=== PATIENT | female | born 1970 | race Caucasian/White ===

== ENCOUNTER 2019-08-31 09:40 | Emergency (ER) | payer MEDICAID ==
[2005-11-23 01:26] VITALS: BP 133/56
[~2019-08-31] VITALS: Ht 167.6 cm; Wt 131.8 kg
[2019-08-31] MEDS ORDERED: COREG12.5 MG PO (10:31)
[2019-08-31] MEDS ORDERED: APRESOLINE50 MG PO (10:31)
[2019-08-31] MEDS ORDERED: LASIX 80MG TABL80 MG PO (10:31)
[2019-08-31] MEDS ORDERED: CATAPRES 0.1MG0.1 MG PO (10:32)
[2019-08-31] MEDS ORDERED: NORVASC 10MG10 MG PO (10:32)
[2019-08-31] MEDS ORDERED: LEVOXYL0.1 MG PO (10:32)
[2019-08-31] MEDS ORDERED: LEXAPRO20 MG PO (10:33)
[2019-08-31] MEDS ORDERED: XELPROS2.5 ML OU (10:33)
[2019-08-31] MEDS ORDERED: HUMALOG PEN100 U/ML SQ (10:34)
[2019-08-31] MEDS ORDERED: LANTUS SOLOS100 U/ML SQ (10:35)
[2019-08-31 12:20] VITALS: BP 203/82; PULSE 74; TEMP 98
== END 2019-08-31 12:20 | disposition home or self-care (01) ==
LOC: COL.ER 09:40
DX: Z76.0 Encounter for issue of repeat prescription (principal); E11.9 Type 2 diabetes mellitus without complications; I10 Essential (primary) hypertension; F17.210 Nicotine dependence, cigarettes, uncomplicated; Z79.4 Long term (current) use of insulin; Z98.890 Other specified postprocedural states

== ENCOUNTER 2019-09-22 14:05 | Inpatient (IN) | payer MEDICAID ==
[~2019-09-22] VITALS: Ht 152.4 cm; Wt 142.7 kg
[~2019-09-22 14:05] MED LIST: APRESOLINE50 MG PO; CATAPRES 0.1MG0.1 MG PO; COREG12.5 MG PO; HUMALOG PEN100 U/ML SQ; LANTUS SOLOS100 U/ML SQ; LASIX 80MG TABL80 MG PO; LEVOXYL0.1 MG PO; LEXAPRO20 MG PO; NORVASC 10MG10 MG PO; XELPROS2.5 ML OU
[2019-09-22 15:50] LABS: BASO # 0.1 (0.0-0.2); BASO % 0.3 % (0.0-2.0); EOS # 0.5 (0.0-0.7); EOS % 3.3 % (0-4.0); GRAN # 11.9 (1.4-6.5); GRAN % 74.8 % (42.2-75.2); HEMOGLOBIN 10.4 g/dl (12.5-16.0); LYMPH # 2.2 (1.2-3.4); LYMPH % 13.7 % (20.0-51.0); MEAN CELL VOLUME 91 fl (80.0-100.0); MEAN CORPUSCULAR HEMOGLOBIN 30 pg (27.0-31.0); MEAN CORPUSCULAR HGB CONC 33 g/dl (33.0-37.0); MEAN PLATELET VOLUME 11.7 fl (7.4-10.4); MONO # 1.2 (0.1-0.6); MONO % 7.3 % (1.7-9.3); PLATELET COUNT 208 K/mm3 (130-400); RED BLOOD COUNT 3.51 M/mm3 (4.10-5.30); REDCELL DISTRIBUTION WIDTH-CV 14.9 % (11.5-14.5)
[2019-09-22 15:52] LABS: HEMATOCRIT 31.8 % (37.0-47.0)
[2019-09-22 15:56] LABS: ALBUMIN 3.5 gm/dL (3.5-5.0); BILIRUBIN,TOTAL 0.3 mg/dL (0.0-1.0); C-REACTIVE PROTEIN 1.4 mg/dL (0.0-0.9); CALCIUM 8.8 mg/dL (8.4-10.2); POTASSIUM 4.7 mmol/L (3.4-5.0); TOTAL PROTEIN 7.2 gm/dL (6.4-8.2)
[2019-09-22 16:05] LABS: CREATININE, serum 4.05 (0.52-1.25)
[2019-09-22 16:06] LABS: TROPONIN-I 0.032 ng/mL (0.000-0.035)
[2019-09-22 16:22] LABS: BUDDING YEAST Present /hpf; GRANULAR CAST >12 /lpf; MUCOUS Present /lpf; PH 5 (5-8); URINE APPEARANCE Turbid; URINE BACTERIA Moderate /hpf; URINE BILIRUBIN Negative (NEGATIVE); URINE BLOOD Negative (NEGATIVE); URINE COLOR Yellow; URINE GLUCOSE 2+ (NEGATIVE); URINE KETONE Negative (NEGATIVE); URINE LEUKOCYTE ESTERASE Negative (NEGATIVE); URINE NITRATE Negative (NEGATIVE); URINE PROTEIN(semi-quant) 3+ (NEGATIVE); URINE UROBILINOGEN Negative (NEGATIVE)
[2019-09-22] MEDS ORDERED: LASIX 40MG TABL40 MG PO (18:24)
[2019-09-22] MEDS ORDERED: NORVASC 10MG10 MG PO (18:28)
[2019-09-22] MEDS ORDERED: XELPROS2.5 ML OP (18:28)
--- NOTE | 2019-09-22 19:15 | NUR ---
Report received from Adina, pt arrived to medical floor by 1720. Telemetry was notified of implementation, however, pt refused tele. Contacted Dr. Crockett who gave orders to D/C tele for pt refusal. Pt complained of a significant headache. During the aformentioned conversation with Dr. Crockett received a Verbal Order for Tylenol to relieve the headache. Pt assessment compelete, most vital signs were WNL, spo2 was hovering around 91%. Call light within reach, personal belongings within reach, will continue to monitor.
--- NOTE | 2019-09-22 21:00 | NUR ---
Pt still has c/o headache. Contacted Dr. Crockett and received an order for Tramadol, Ambien and Hydralazine. When asking the pt if she felt better, she stated that the pain was beginning to feel better, but that she was feeling like she was having a hard time breathing. Listened to pt lungs, Bilateral upper lobes CTA, R Middle and Bilateral lower lobes expiratory wheezes. Pt is complaining of cough being so bad she can't breath. Will continue to monitor. Bed Low, call light within reach, and pt belongings nearyby.
[2019-09-22 21:14] VITALS: BP 148/59; PULSE 80; TEMP 98.4
[2019-09-23] VITALS (7 sets, daily range): BP systolic 106–169; BP diastolic 47–63; PULSE 66–85; TEMP 97.4–99.7
--- NOTE | 2019-09-23 00:50 | NUR ---
Pt complaint of being unable to breathe. Checked pt's vital signs, pt spo2 is hovering around 87-89%. Applied supplemental o2, 1LPM. Pt spo2 is now sitting at 95-96%. Will continue to monitor. Call light within reach. Pt sitting on the side of the bed for comfort. No further concerns at this time.
[2019-09-23 10:39] LABS: COLLECTION METHOD CATHETER
[2019-09-23 11:31] LABS: TSH w REFLEX 16.6 uIU/mL (0.465-4.680)
[2019-09-24] VITALS (7 sets, daily range): BP systolic 124–158; BP diastolic 55–89; PULSE 66–79; TEMP 97.4–98.4
--- NOTE | 2019-09-24 07:00 | NUR ---
Pt was very distraught throughout the night. Multiple times complained of staff ignoring her. Pt complained of pain, and that the medication being given was ineffective. Bon was contacted multiple times over the weekend for more and/or other pain management options, however, since she is new to his service he is hesitant to give anything else. Pt is not satisfied with that answer, and began to refuse treatments and labs. Around 0100, pt transferred herself to her wheelchair and searched for her cigarettes. She stated that she could be home drinking a soda and smoking instead of sitting in the hospital not being treated. Again, reiterated that she is hospitalized for a reason, and that refusing treatments will only make things worse for her because we won't know how to treat her problem if we have no labs. Pt becomes somewhat compliant while in the room and then when RN or APPELLATE COURT CLERK leaves, pt reverts back to agitation and anger. Pt states "I'm bitchy, that's just how I am." CT is schedueled for this morning to get a picture of her sinuses. Consider a psych consult. Report given to Analy.
--- NOTE | 2019-09-24 07:30 | NUR ---
Bedside shift report received from Derik Arzate. Pt in bed resting, CT trying to get to WC to get to CT. Will ocntinue to monitor.
[2019-09-24 08:41] LABS: BASO % 0.4 % (0.0-2.0); EOS # 0.7 (0.0-0.7); EOS % 7.4 % (0-4.0); GRAN % 53.5 % (42.2-75.2); LYMPH # 2.4 (1.2-3.4); LYMPH % 25.9 % (20.0-51.0); MEAN CELL VOLUME 93 fl (80.0-100.0); MEAN CORPUSCULAR HGB CONC 33 g/dl (33.0-37.0); MEAN PLATELET VOLUME 11.9 fl (7.4-10.4); MONO # 1.1 (0.1-0.6); MONO % 11.6 % (1.7-9.3); PLATELET COUNT 131 K/mm3 (130-400); RED BLOOD COUNT 2.98 M/mm3 (4.10-5.30); REDCELL DISTRIBUTION WIDTH-CV 15.2 % (11.5-14.5)
[2019-09-24 08:42] LABS: HEMATOCRIT 27.8 % (37.0-47.0); HEMOGLOBIN 9.1 g/dl (12.5-16.0); MEAN CORPUSCULAR HEMOGLOBIN 31 pg (27.0-31.0)
[2019-09-24 08:47] LABS: ALBUMIN 3.2 gm/dL (3.5-5.0); CALCIUM 8.2 mg/dL (8.4-10.2)
[2019-09-24 08:59] LABS: CREATININE, serum 6.17 (0.52-1.25)
[2019-09-24 09:00] LABS: PHOSPHOROUS 9.3 mg/dL (2.5-4.5)
--- NOTE | 2019-09-24 10:30 | NUR ---
Assessment charted. Pt in bed resting with 02 mask on for comfort when resting. Groin is excortiated, cream applied and powder applied. Pt c/o pain to head, LUQ of abd from "pulled muscle". Bon and his nurse in room to assist with needs, disucssed possibility of dialysis. PRN pain meds given. Denies needs, will continue to monitor.
--- NOTE | 2019-09-24 16:59 | NUR ---
JOSEPH met with the patient to discuss discharge plan. The patient resides at [facility] for long-term care. The patient states that she plans to return back to [facility] upon discharge. JOSEPH presented and explained the Patient Choice Form to the patient. The patient verbalized understanding, signed, and she declined a copy. JOSEPH attempted to contact and update Amarjit at [facility]. JOSEPH left a voicemail and faxed [facility] updates. The patient's PCP is Dr. Howard at [place]. The patient does not have advanced directives and she was not interested in completing them at this time. The patient states that her next of kin is her father, Froilan Hicks (ph#[phone]). SW to continue to follow.
--- NOTE | 2019-09-24 17:39 | NUR ---
Pt in bed resting, slept off and on this afternoon, PRN pain meds provided per request. Denies needs, bed bath provided, pt continues to be incontinent of urine but knows when she goes, just does not have motivation to get up and use commode or bedpan. Resting in bed, per Senior Civil Engineer cannot go to [facility] as she is on precautions. Will give bedside shift report to nightshift nurse who will resume care.
[2019-09-24 18:10] LABS: HEPATITIS B SURFACE ANTIGEN Negative (Negative)
[2019-09-24 20:23] LABS: FOLATE (FOLIC ACID) 10.5 ng/mL (7.0-31.4)
[2019-09-25 04:46] VITALS: BP 165/63; PULSE 70; TEMP 97.8
--- NOTE | 2019-09-25 06:37 | NUR ---
Pt makes no attempt to get out of bed to use the bathroom. Has an open area to her coccyx approx. the size of a pencil eraser. Explained to her that with her being diabetic and urinating in bed will not be easy for the wound to heal. She used all her 1500mL fluid restriction. Call light within reach. Heating pad to L abdomen.
[2019-09-25 07:50] LABS: BASO % 0.3 % (0.0-2.0); EOS # 0.6 (0.0-0.7); EOS % 5.9 % (0-4.0); GRAN # 5.2 (1.4-6.5); GRAN % 56.4 % (42.2-75.2); LYMPH # 2.3 (1.2-3.4); LYMPH % 25.1 % (20.0-51.0); MEAN CELL VOLUME 94 fl (80.0-100.0); MEAN CORPUSCULAR HGB CONC 32 g/dl (33.0-37.0); MEAN PLATELET VOLUME 12.2 fl (7.4-10.4); MONO % 11.1 % (1.7-9.3); PLATELET COUNT 160 K/mm3 (130-400)
[2019-09-25 07:53] LABS: HEMATOCRIT 26.2 % (37.0-47.0); HEMOGLOBIN 8.5 g/dl (12.5-16.0); MEAN CORPUSCULAR HEMOGLOBIN 30 pg (27.0-31.0)
[2019-09-25 07:59] LABS: ALBUMIN 3.2 gm/dL (3.5-5.0); CALCIUM 7.5 mg/dL (8.4-10.2); POTASSIUM 5.5 mmol/L (3.4-5.0)
--- NOTE | 2019-09-25 08:00 | NUR ---
SEE MORNING ASSESSMENT.
[2019-09-25 08:01] LABS: CREATININE, serum 6.68 (0.52-1.25); PHOSPHOROUS 10.7 mg/dL (2.5-4.5)
[2019-09-25 08:12] VITALS: BP 164/62; PULSE 70; TEMP 98.5
--- NOTE | 2019-09-25 10:55 | NUR ---
EMLA CREAM APPLIED TO LUE AV FISTULA SITE AND COVERED WITH A TEGADERM DRESSING. PATIENT TAKEN TO DIALYSIS VIA BED. WILL WAIT FOR PATIENT ARRIVAL BACK TO ROOM 356.
[2019-09-25 12:04] VITALS: BP 120/56; PULSE 62; TEMP 97.6
--- NOTE | 2019-09-25 12:15 | NUR ---
PATIENT ARRIVED BACK TO ROOM 356 VIA BED.
--- NOTE | 2019-09-25 12:30 | NUR ---
PATIENT CALLED OUT STATING THAT SHE DOESN'T FEEL RIGHT, THAT SHE'S NOT WITH IT AND THAT SHE'S SHAKING ON THE INSIDES. PATIENTS BLOOD SUGAR IS 76. PATIENT GIVEN PARAG CRACKERS, PEANUT BUTTER AND MILK. WILL CONTINUE TO MONITOR.
--- NOTE | 2019-09-25 12:47 | NUR ---
VIVIAN NOTIFIED OF TB SKIN TEST ORDER.
--- NOTE | 2019-09-25 13:08 | NUR ---
JOSEPH contacted and faxed updates to Amarjit at [facility].
[2019-09-25 16:21] VITALS: BP 135/56; PULSE 82; TEMP 97.6
--- NOTE | 2019-09-25 18:20 | NUR ---
DR. HAMILTON CALLED AND NOTIFIED THAT THE PATIENTS IV SITE IS LEAKING. DR. HAMILTON OKAY WITH PATIENT HAVING NO IV SITE. DISCONTINUE IV ROCEPHIN AND START PATIENT ON PO LEVAQUIN 500 MG NOW AND EVERY 48 HOURS TORB TO THIS NURSE.
--- NOTE | 2019-09-25 19:15 | NUR ---
REPORT GIVEN TO DANUTA MELENDEZ.
[2019-09-25 20:46] VITALS: BP 122/76; PULSE 71
[2019-09-25 23:34] VITALS: BP 141/56; PULSE 73
[2019-09-26 07:33] VITALS: BP 133/42; PULSE 72; TEMP 97.9
[2019-09-26 11:45] VITALS: BP 150/63; PULSE 71; TEMP 97.2
--- NOTE | 2019-09-26 14:12 | NUR ---
JOSEPH contacted and faxed updates to Amarjit at [facility]. JOSEPH asked the patient's RN, Fern, for PT/OT to be ordered. JOSEPH to continue to follow.
--- NOTE | 2019-09-26 15:43 | NUR ---
24 gauge IV started to right AC by DANUTA Andrews after 1 unsuccessful attempt by this nurse. Pt awaiting procedure for dialysis catheter placement.
--- NOTE | 2019-09-26 15:59 | NUR ---
Pt to flower shop laborer/designer for dialysis catheter placement via bed.
[2019-09-26 16:00] VITALS: BP 101/84; PULSE 68
[2019-09-26 17:12] LABS: HEMATOCRIT 24.8 % (37.0-47.0); HEMOGLOBIN 8.1 g/dl (12.5-16.0); MEAN CELL VOLUME 95 fl (80.0-100.0); MEAN CORPUSCULAR HEMOGLOBIN 31 pg (27.0-31.0); MEAN CORPUSCULAR HGB CONC 33 g/dl (33.0-37.0); MEAN PLATELET VOLUME 11.9 fl (7.4-10.4); PLATELET COUNT 133 K/mm3 (130-400); RED BLOOD COUNT 2.62 M/mm3 (4.10-5.30); REDCELL DISTRIBUTION WIDTH-CV 14.9 % (11.5-14.5)
[2019-09-26 17:20] LABS: ALBUMIN 2.9 gm/dL (3.5-5.0); CALCIUM 6.9 mg/dL (8.4-10.2)
[2019-09-26 17:21] LABS: CREATININE, serum 6.19 (0.52-1.25)
[2019-09-26 17:31] LABS: PHOSPHOROUS 14.2 mg/dL (2.5-4.5)
[2019-09-26 17:35] LABS: EOSINOPHIL 4 % (0-4); LYMPHOCYTE 21 % (20.0-51.0); NEUTROPHILS 65 % (42.0-75.2); PLATELET ESTIMATE NORMAL (NORMAL)
[2019-09-26 17:36] LABS: ANISOCYTOSIS 1+; OVALOCYTES 1+; POLYCHROMASIA 1+
--- NOTE | 2019-09-26 17:40 | NUR ---
Pt back to room following procedure via bed, drowsy, awakens briefly to stimuli then back to sleep quickly. O2 4 L/min via OM. HD catheter to left chest with dressing CDI. Call light in reach.
--- NOTE | 2019-09-26 18:08 | NUR ---
SEE ERIC FOR ALL MEDICATION ADMINISTRATION TIMES AND INTRA/POST SEDATION SCORING/ASSESSMENT
--- NOTE | 2019-09-26 19:42 | NUR ---
Pt requesting pain pill. Waking up from her procedure in placing her dialysis cath. Rates pain 8/. Cath intact in upper right chest. Dressing intact with a small spot of blood at top edge of dressing. Will monitor site. Assist back to bed. HOB slightly elevated. O2 on at 5L/mask. Percocet 1 tab given for her incisional pain. RT in to do respiratory treatment. Call light in reach.
[2019-09-26 20:29] VITALS: BP 128/82; PULSE 93; TEMP 97.9
[2019-09-26 20:38] VITALS: BP 116/49; PULSE 71; TEMP 98
[2019-09-26 23:16] VITALS: BP 146/70; PULSE 70; TEMP 97.8
[2019-09-27 06:06] VITALS: BP 141/61; PULSE 69; TEMP 98.1
--- NOTE | 2019-09-27 08:00 | NUR ---
Recieved report from security shift manager nurse, will be assisting primary nurse with medications, treatments, and patient care. Patient resting in bed at this time, rouses easily. Patient reports pain in her right neck/shoulder from HD catheter placement and also states she has a previously pulled muscle in the same area. Patient also reports nausea, reported this to primary nurse as the patient did not have an order for antinausea medication. Patient states that she is not going to eat breakfast and refused her scheduled insulin and phoslo. Patient also states that she wants to wait to take the rest of her medicaiton until after she has had something for nausea. Patient denies other needs at this time, call light within reach.
[2019-09-27 08:57] VITALS: BP 131/56; PULSE 76; TEMP 97.8
[2019-09-27 11:26] VITALS: BP 134/75; PULSE 77; TEMP 97.9
[2019-09-27 13:39] LABS: BASO % 0.4 % (0.0-2.0); EOS # 0.3 (0.0-0.7); GRAN # 4.4 (1.4-6.5); GRAN % 66.2 % (42.2-75.2); LYMPH # 1.5 (1.2-3.4); LYMPH % 22.3 % (20.0-51.0); MEAN CELL VOLUME 93 fl (80.0-100.0); MEAN CORPUSCULAR HGB CONC 33 g/dl (33.0-37.0); MEAN PLATELET VOLUME 11.6 fl (7.4-10.4); MONO # 0.4 (0.1-0.6); MONO % 5.5 % (1.7-9.3); PLATELET COUNT 148 K/mm3 (130-400); RED BLOOD COUNT 2.73 M/mm3 (4.10-5.30); REDCELL DISTRIBUTION WIDTH-CV 14.9 % (11.5-14.5)
[2019-09-27 13:42] LABS: HEMATOCRIT 25.4 % (37.0-47.0); HEMOGLOBIN 8.3 g/dl (12.5-16.0); MEAN CORPUSCULAR HEMOGLOBIN 30 pg (27.0-31.0)
[2019-09-27 13:50] LABS: ALBUMIN 3.3 gm/dL (3.5-5.0); CALCIUM 7.7 mg/dL (8.4-10.2); POTASSIUM 5.5 mmol/L (3.4-5.0)
[2019-09-27 14:00] LABS: CREATININE, serum 6.8 (0.52-1.25); PHOSPHOROUS 9.9 mg/dL (2.5-4.5)
--- NOTE | 2019-09-27 14:10 | NUR ---
Primary nurse was assisted with [phone] patient care by [employer] student Caitlyn Bee and [employer] instructor Kathi Ortega RN-.
--- NOTE | 2019-09-27 15:36 | NUR ---
JOSEPH faxed updates to [facility]. JOSEPH to continue to follow.
[2019-09-27 17:58] VITALS: BP 155/60; PULSE 69; TEMP 97.9
[2019-09-27 18:54] VITALS: BP 139/63; PULSE 79; TEMP 97.9
--- NOTE | 2019-09-27 19:00 | NUR ---
PT HAD UNEVENTFUL DAY, WENT TO DIALYSIS. PAIN MEDS HAVE BEEN MINAMAL THIS SHIFT. UA UN-OBTAINABLE. NO ISSUES OR CONCERNS VOICED. DOING WELL WITH FLUID RESTRICTION TODAY.
--- NOTE | 2019-09-27 20:50 | NUR ---
Sitting up in bed. Rates pain 4/10 in right upper chest area. Denies N/V. Jennifer care provided. Area red and excoriated in areas. Powder applied as scheduled. Pressure ulcer, stage 3, noted to left sacral area. Patient says that it has been there for a while. Wound bed moist. Explain to the patient that we need to obtain a UA from her. Patient says that she is not going to get on commode and a straight cath can just be done to collect it. Explained to the patient that if she feels that she needs to urinate to let us know so that we can get her on the commode so we can try to collect the specimen. Repostioned patient in the bed. Patient denies further needs or concerns.
[2019-09-27 23:42] VITALS: BP 119/49; PULSE 53; TEMP 98.4
--- NOTE | 2019-09-27 23:49 | NUR ---
Sitting up in bed. Request assistance in finding phone. Phone was plugged into revenue cycle consultant sitting in recliner chair. Provided patient with her phone. Patient asks for assistance in putting earing in her ears. Assisted patient with this as well. Asked patient if she needed to use the restroom and the patient declines. Denies further needs at this time.
[2019-09-28 04:00] VITALS: BP 126/42; PULSE 71; TEMP 98.3
--- NOTE | 2019-09-28 04:40 | NUR ---
Lying in bed. Requests to have light turned off. Light turned off at this time. Patient says that she is only having minimal pain in the right upper chest near the dialysis catheter they inserted two days ago. Dressing to site CDI. Patient denies further needs or concerns.
--- NOTE | 2019-09-28 06:36 | NUR ---
Sitting up in bed. Patient says that she has been up all night and now she is tired. Patient says that she does this all the time. Denies pain or concerns at this time.
--- NOTE | 2019-09-28 07:52 | NUR ---
Patient sitting up in bed eating breakfast at this time. Patient is alert and oriented, answers questions appropriately. Patient given her phosphate binders with her meal. Patient states that she did not sleep well last night and would like to take a nap after breakfast. Patient denies further needs at this time, call light within reach.
[2019-09-28 08:16] VITALS: BP 150/70; PULSE 71; TEMP 98
[2019-09-28 12:28] VITALS: BP 115/48; PULSE 68; TEMP 98.3
--- NOTE | 2019-09-28 13:48 | NUR ---
Primary nurse was assisted with [phone] patient care by [employer] student Caitlyn Bee and [employer] instructor Kathi Ortega RN-.
[2019-09-28 14:41] LABS: MEAN CELL VOLUME 94 fl (80.0-100.0); MEAN CORPUSCULAR HGB CONC 32 g/dl (33.0-37.0); MEAN PLATELET VOLUME 10.7 fl (7.4-10.4); PLATELET COUNT 156 K/mm3 (130-400); RED BLOOD COUNT 2.75 M/mm3 (4.10-5.30); REDCELL DISTRIBUTION WIDTH-CV 15.1 % (11.5-14.5)
[2019-09-28 14:42] LABS: HEMATOCRIT 25.7 % (37.0-47.0); HEMOGLOBIN 8.3 g/dl (12.5-16.0); MEAN CORPUSCULAR HEMOGLOBIN 30 pg (27.0-31.0)
[2019-09-28 14:52] LABS: ALBUMIN 3.4 gm/dL (3.5-5.0); CALCIUM 8.1 mg/dL (8.4-10.2); PHOSPHOROUS 6.2 mg/dL (2.5-4.5); POTASSIUM 4.6 mmol/L (3.4-5.0)
[2019-09-28 14:58] LABS: CREATININE, serum 4.75 (0.52-1.25)
[2019-09-28 15:22] LABS: ANISOCYTOSIS 3+; EOSINOPHIL 5 % (0-4); LYMPHOCYTE 37 % (20.0-51.0); METAMYELOCYTE 2 % (0-0); NEUTROPHILS 51 % (42.0-75.2); NUCLEATED RED BLOOD CELL 1 (0-6); PLATELET ESTIMATE NORMAL (NORMAL); STOMATOCYTE 1+
[2019-09-28 15:23] LABS: MICROCYTOSIS 2+; OVALOCYTES 1+; POIKILOCYTOSIS 1+; POLYCHROMASIA 1+; SPHEROCYTE 1+
[2019-09-28 16:32] VITALS: BP 130/49; PULSE 63; TEMP 98.1
--- NOTE | 2019-09-28 18:36 | NUR ---
Pt resting in room since returning from dialysis this afternoon, reported that 1700ml was dialized from Pt, VS have remained stable during the day.
--- NOTE | 2019-09-28 20:00 | NUR ---
Pt sitting up in bed upon arrival to pt room. Pt c/o pain in her L rib area as well as new dialysis port site. Pt assessed, all vitals WNL. No other complaints. No further concerns at this time. Call light and phone within reach.
[2019-09-28 20:11] VITALS: BP 129/54; PULSE 74; TEMP 98.4
[2019-09-28 23:30] VITALS: BP 116/50; PULSE 65; TEMP 98.2
[2019-09-29 03:35] VITALS: BP 112/48; PULSE 66; TEMP 98.7
--- NOTE | 2019-09-29 08:01 | NUR ---
Pt report given to Ken. TIPTON. No changes made through the night. Pt still remains active in the room. Requests pain management at appropriate times. Pt handoff complete. No further concerns at this time.
[2019-09-29 08:22] VITALS: BP 147/60; PULSE 67
--- NOTE | 2019-09-29 09:44 | NUR ---
Pt awake and alert upon entry, some C/O pain this morning, shift assessments complete, left Pt call light in reach, bed in lowest position.
[2019-09-29 12:08] VITALS: BP 130/47; PULSE 66; TEMP 98.2
[2019-09-29 17:10] VITALS: BP 139/65; PULSE 66; TEMP 98.2
--- NOTE | 2019-09-29 19:11 | NUR ---
Pt resting in room today, some C/O pain, VS have remained stable.
[2019-09-29 19:12] VITALS: BP 152/62; PULSE 68; TEMP 99.1
--- NOTE | 2019-09-29 19:50 | NUR ---
Report received from DANUTA Meeks. Pt sitting at bedside eating dinner. Pt voices no complaints at this time. Assessment complete. Vitals WNL. Call light and phone within reach. No further concerns at this time.
[2019-09-29 23:33] VITALS: BP 151/72; PULSE 65; TEMP 99.2
[2019-09-30 03:21] VITALS: BP 143/57; PULSE 69; TEMP 98.4
--- NOTE | 2019-09-30 06:00 | NUR ---
Pt demanded coffee six times via call light from OG Gentile and other staff members. Krupa gave pt a cup of coffee. Pt called for the RN, stating she spilled her coffee, there was some spilled, unaware of how much was drank or spilled. Pt demanded another cup. OG Gentile gave pt another 1/2 cup of coffee. Pt finished that cup of coffee, and demanded another cup. DANUTA Arzate talked to pt about 1500ml fluid restriction. Pt exclaimed "I don't care about the fluid restriction, I just want a couple cups of coffee, so knock it off!" Pt is and has been non-compliant, refusing care, and generally defiant throughout her hospitalization. During report from DANUTA Meeks, he stated that Pt had left the floor during his shift asking for cigarettes from people in the lobby of the hospital. Carito TIPTON told the pt it is inappropriate for pt to speak to any of the staff the way she has, and that the staff members are here to take care of her the best we can with the orders the doctors have given. Pt is not accepting of the discussion. RN gave pt a 3rd cup of coffee and ended the conversation. Will pass this information on in report.
--- NOTE | 2019-09-30 07:10 | NUR ---
Report given to DANUTA Meeks. Pt's non-compliance and beligerance throughout the night had been noted and given in report. Pt remains in her room at this time on her bed.
[2019-09-30 07:37] VITALS: BP 152/66; PULSE 72
--- NOTE | 2019-09-30 09:06 | NUR ---
Pt awake and alert upon entry, shift assessments complete, left Pt cakll light in reach, bed in lowest position.
[2019-09-30 11:25] VITALS: BP 138/59; PULSE 67; TEMP 99.2
--- NOTE | 2019-09-30 12:22 | NUR ---
emergency worker faxed medical updates to [facility] ([phone]) including facesheet, progress notes, physical therapy notes, nursing notes, and medications.
[2019-09-30 16:02] VITALS: BP 122/45; PULSE 67; TEMP 97.8
--- NOTE | 2019-09-30 19:19 | NUR ---
Pt resting in room today, some C/O pain, VS have remained stable.
--- NOTE | 2019-09-30 19:26 | NUR ---
Report given to DANUTA Arzate.
[2019-09-30 19:54] VITALS: BP 130/61; PULSE 66; TEMP 98.2
--- NOTE | 2019-09-30 21:59 | NUR ---
AT 2129 PLACED PT ON NOC OX MACHINE ON ROOM AIR TO DETERMINE NEED FOR 02 AT NIGHT
[2019-10-01 00:42] VITALS: BP 139/50; PULSE 63; TEMP 98.1
[2019-10-01 03:56] VITALS: BP 118/34; PULSE 69
--- NOTE | 2019-10-01 07:00 | NUR ---
Report rcvd from DANUTA Meeks. Pt had an unremarkable night. Pt had Noc Ox testing from RT, PFT completed on 09/27, still needs an exercise o2 test to complete testing for supplemental o2 needs. Pt remains non compliant with fluid restriction. After being educated she seems to understand, but quickly changes her mind and does not care about restrictions when she wants food or drinks. Pt continues to choose to urinate in her bed rather than using a bed montero or transferring to a bedside commode. No briefs or diapers fit her due to her obesity so she sits on 2 diapers and hopes they catch the urine. Pt may or may not have dialysis today. During the night a pipe smoking machine operator was confiscated and placed in the pt's med bin along with her pack of cigarettes in the med room. During day shift, it was made aware that the pt eloped from the medical floor and was found in the lobby of the first floor asking people for cigarettes. The pt continues to be agitated and non compliant with the staff on the medical floor. Dr. Crockett is aware of her refusals and non compliance. Report given to ADNUTA Crews.
--- NOTE | 2019-10-01 07:34 | NUR ---
report from Carito TIPTON.
[2019-10-01 08:07] VITALS: BP 152/72; PULSE 68; TEMP 99.2
[2019-10-01 11:43] VITALS: BP 135/50; PULSE 67; TEMP 98.5
[2019-10-01 14:24] LABS: MEAN CELL VOLUME 94 fl (80.0-100.0); MEAN CORPUSCULAR HGB CONC 33 g/dl (33.0-37.0); MEAN PLATELET VOLUME 10.7 fl (7.4-10.4); PLATELET COUNT 224 K/mm3 (130-400); RED BLOOD COUNT 3.11 M/mm3 (4.10-5.30); REDCELL DISTRIBUTION WIDTH-CV 15.8 % (11.5-14.5)
[2019-10-01 14:25] LABS: HEMATOCRIT 29.1 % (37.0-47.0); HEMOGLOBIN 9.5 g/dl (12.5-16.0); MEAN CORPUSCULAR HEMOGLOBIN 31 pg (27.0-31.0)
[2019-10-01 14:37] LABS: ALBUMIN 3.9 gm/dL (3.5-5.0); CALCIUM 9.2 mg/dL (8.4-10.2); CREATININE, serum 5.75 (0.52-1.25); PHOSPHOROUS 6.2 mg/dL (2.5-4.5); POTASSIUM 5.2 mmol/L (3.4-5.0)
[2019-10-01 14:47] LABS: BAND 1 % (0-10); EOSINOPHIL 1 % (0-4); LYMPHOCYTE 7 % (20.0-51.0); METAMYELOCYTE 5 % (0-0); NEUTROPHILS 84 % (42.0-75.2); NUCLEATED RED BLOOD CELL 1 (0-6); PLATELET ESTIMATE NORMAL (NORMAL)
[2019-10-01 14:48] LABS: ANISOCYTOSIS 1+; MICROCYTOSIS 1+; POLYCHROMASIA 1+
--- NOTE | 2019-10-01 16:46 | NUR ---
PT CONTINUES TO HAVE DIALYSIS AND IS OFF FLOOR ATTHIS TIME.
[2019-10-01 17:01] VITALS: BP 148/57; PULSE 72; TEMP 99.4
--- NOTE | 2019-10-01 18:25 | NUR ---
PT NON COMPLIANT HAS LEFT FLOOR WITH FAMILY. PT HAS BEEN TOLD NUMEROUS TIMES THAT SHE NEEDS TO CHECK WITH PRIMARY NURSE BEFORE LEAVING. DONNA RN FOR DR. HAMILTON REINFORCED TEACHING THIS AM. PT WAITED UNTIL STAFF WAS BUSY AND THEN LEFT FLOOR WITH FAMILY WITH OUT PRECAUTIONS. STAFF WENT TO RETRIVE PATIENT AND PUT GOWN ON WHILE OUT OF ROOM.
--- NOTE | 2019-10-01 20:21 | NUR ---
PT LEFT FLOOR WITHOUT NOTIFYING STAFF, ALSO REFUSED TO GET HER BS TAKEN, INSULIN NOT GIVEN
--- NOTE | 2019-10-01 22:04 | NUR ---
Pt very non-compliant. Refused to have nursing check her BS. Wheeled out of room by family earlier without notifying staff. Other meds given. VSS. Call light within reach, will continue to monitor
--- NOTE | 2019-10-01 23:58 | NUR ---
Pt refused vital signs at 2000 and 0000.
--- NOTE | 2019-10-02 01:06 | NUR ---
Patient has been noncompliant with fluid restriction, does not want to follow directions after reinforcement teaching done
[2019-10-02 04:00] VITALS: BP 155/71; PULSE 69; TEMP 98.4
--- NOTE | 2019-10-02 05:10 | NUR ---
Pt will not get up to go to restroom, instead she urinates in her brief and has nursing staff help clean her up
--- NOTE | 2019-10-02 06:30 | NUR ---
Pt refused labs this AM
--- NOTE | 2019-10-02 06:40 | NUR ---
awake sitting up in bed, bedside shift report received from DANUTA Winston
[2019-10-02 08:24] VITALS: BP 165/55; PULSE 71; TEMP 99
--- NOTE | 2019-10-02 08:50 | NUR ---
sitting up in bed eating breakfast, given am meds and takes without problems, full assessment completed, see interventions for further info
--- NOTE | 2019-10-02 10:00 | NUR ---
resting in bed on left side with lights off
[2019-10-02 11:50] VITALS: BP 156/70; PULSE 66; TEMP 98.6
--- NOTE | 2019-10-02 12:56 | NUR ---
JOSEPH collaborated with Dr. Crockett. Dr. Crockett reports that the patient may be ready to discharge tomorrow, 10/03. JOSEPH then met with the patient. She states that she is doing okay and just watching tv. States she is ready to discharge. JOSEPH contacted and faxed updates to Amarjit at [facility]. JOSEPH to continue to follow.
--- NOTE | 2019-10-02 13:16 | NUR ---
up and about in WC in the room, states she had a bowel movement and it was small and hard
--- NOTE | 2019-10-02 14:25 | NUR ---
physical therapy in and worked with patient
--- NOTE | 2019-10-02 14:30 | NUR ---
out in [place] in stating she was going downstair, informed her she could not go outside and verbalizes understanding, given a blanket to place around her since she is in isolation
--- NOTE | 2019-10-02 14:54 | NUR ---
nursing casting and pasting supervisor to check on patient and she is in the gift shop
[2019-10-02 15:55] VITALS: BP 159/68; PULSE 67; TEMP 98.3
--- NOTE | 2019-10-02 16:12 | NUR ---
she is asking about dialysis thinking she was to have it every day, called Dr Crockett and he states she isn't to have dialysis today, infomred patient of this and verbalizes understanding
--- NOTE | 2019-10-02 16:45 | NUR ---
in bed watching TV, provided diet pepsi per her request, informed her blood sugar was elevated and she states she knew because she had been eatin candy
--- NOTE | 2019-10-02 18:47 | NUR ---
bedside shift report given to DANUTA Solis
--- NOTE | 2019-10-02 20:00 | NUR ---
Report received. Assumed care for civil rights representative. A&Ox3. Assessment complete. VS stable. Laying in bed watching TV. Plan of care discussed for bedside glucose check/HS meds. Discussed fluid restriction and where currently is for the day. Denies questions at this time. INT to right forearm. Gauze to right chest dialysis fistula. LCTA. +2 edema to left lower extremity. States she doesnt know why she hasnt lost more weight. States she ate several candy bars prior to dinner. Requesting I bring 20 units of insulin in now. Explained we would check glucose at 2100 and follow sliding scale orders. Verbalizes understanding. Denies any other questions or concerns at this time. Call light in reach. Will monitor.
[2019-10-02 21:08] VITALS: BP 161/73; PULSE 80; TEMP 98.5
--- NOTE | 2019-10-02 21:20 | NUR ---
Notified of bedside glucose of "High" by PCT. New order placed for STAT glucose level per protocol. Lab notified of need for lab draw.
--- NOTE | 2019-10-02 21:30 | NUR ---
Refused STAT lab draw for glucose result of "high." States "just bring me 20units of insulin." Discussed protocol and orders and being unable to do this. Dr Crockett called to notify of reading and refusal for lab draw. New orders received to change sliding scale from Low Protocol to High Protocol. Insulin given per protocol. Discussed with patient who remains argumentative but does agree to take insulin. Denies any questions or concerns. Will monitor.
--- NOTE | 2019-10-02 22:20 | NUR ---
C/O pain to right chest area described as throbbing-rated 6/10 on pain scale. Percocet given per dr order. Will monitor effectiveness.
[2019-10-03 00:18] VITALS: BP 169/69; PULSE 72; TEMP 98.2
[2019-10-03 05:20] VITALS: BP 158/73; PULSE 65; TEMP 98.2
[2019-10-03 06:57] VITALS: BP 164/72; PULSE 78; TEMP 98.4
--- NOTE | 2019-10-03 07:00 | NUR ---
Bedside shift report received from DANUTA lindsey. pT in bed resting, doing well, denies needs, will continue to montior.
[2019-10-03 10:47] VITALS: BP 143/61; PULSE 69; TEMP 98.4
--- NOTE | 2019-10-03 11:08 | NUR ---
Assessment charted. Pt feeling well, resting in bed and watns to take a nap. HD catheter to RU. L inner elbow aspect AV fistula bruit and thrill present. Pt given PRN pain meds per request for generalized pain. Denies needs, discussed plan for 1300 dialysis today. Pt agreeable, will contineu to monitor.
[2019-10-03] MEDS ORDERED: NORVASC 5MG5 MG/TAB PO (11:12)
[2019-10-03] MEDS ORDERED: PHOSLO667 MG PO (11:13)
[2019-10-03] MEDS ORDERED: LASIX 80MG TABL80 MG PO (11:13)
[2019-10-03] MEDS ORDERED: PREDNISONE20 MG PO (11:15)
[2019-10-03] MEDS ORDERED: IPRATROPIUM BROM3 M1 IH (11:17)
[2019-10-03] MEDS ORDERED: RT ADVAIR 228 DISKUS IH (11:18)
--- NOTE | 2019-10-03 14:31 | NUR ---
The patient is to discharge today, 10/03, back to [facility] for long-term care. Transportation was scheduled for around 1645, via [facility]. SW informed the patient's RN. No additional needs at this time.
[2019-10-03 14:59] LABS: MEAN CELL VOLUME 94 fl (80.0-100.0); MEAN CORPUSCULAR HGB CONC 32 g/dl (33.0-37.0); MEAN PLATELET VOLUME 10.8 fl (7.4-10.4); PLATELET COUNT 248 K/mm3 (130-400); RED BLOOD COUNT 3.21 M/mm3 (4.10-5.30); REDCELL DISTRIBUTION WIDTH-CV 16.7 % (11.5-14.5)
[2019-10-03 15:01] LABS: ALBUMIN 4.1 gm/dL (3.5-5.0); CALCIUM 9.2 mg/dL (8.4-10.2); CREATININE, serum 2.96 (0.52-1.25); HEMOGLOBIN 9.8 g/dl (12.5-16.0); MEAN CORPUSCULAR HEMOGLOBIN 31 pg (27.0-31.0); PHOSPHOROUS 3.4 mg/dL (2.5-4.5); POTASSIUM 4.4 mmol/L (3.4-5.0)
[2019-10-03 15:02] LABS: HEMATOCRIT 30.3 % (37.0-47.0)
[2019-10-03 16:23] VITALS: BP 143/61; PULSE 69; TEMP 98.4
--- NOTE | 2019-10-03 16:38 | NUR ---
Transfer completed at thsi time. Pt removed own INT, site looked good. pt left wtih all belongings via w/c with [facility] staff. cigarettes and cvicu nurse returned to the patient. Report called to [facility] staff who will resume care, criteria met.
[2019-10-03 17:29] LABS: ANISOCYTOSIS 1+; BAND 3 % (0-10); EOSINOPHIL 1 % (0-4); LYMPHOCYTE 11 % (20.0-51.0); METAMYELOCYTE 1 % (0-0); NEUTROPHILS 80 % (42.0-75.2); NUCLEATED RED BLOOD CELL 1 (0-6); PLATELET ESTIMATE NORMAL (NORMAL)
[2019-10-03 17:30] LABS: HYPOCHROMIA 1+
== END 2019-10-03 16:30 | DRG 291 ==
LOC: COL.ER 14:05 → MEDICAL 17:36
PROVIDERS: Internal Medicine Nephrology; ADMIT Emergency Medicine
PROC: 5A1D70Z Performance of Urinary Filtration, Intermittent, Less than 6 Hours Per Day (ICD-10-PCS; 2019-09-25)
PROC: 0JH63XZ Insertion of Tunneled Vascular Access Device into Chest Subcutaneous Tissue and Fascia, Percutaneous Approach (ICD-10-PCS; principal; 2019-09-26)
PROC: 02H633Z Insertion of Infusion Device into Right Atrium, Percutaneous Approach (ICD-10-PCS; 2019-09-26)
DX: I13.2 Hypertensive heart and chronic kidney disease with heart failure and with stage 5 chronic kidney disease, or end stage renal disease (principal); I50.23 Acute on chronic systolic (congestive) heart failure; N39.0 Urinary tract infection, site not specified; N18.5 Chronic kidney disease, stage 5; Z68.43 Body mass index [BMI] 50.0-59.9, adult; N17.9 Acute kidney failure, unspecified; R51 Headache; J44.9 Chronic obstructive pulmonary disease, unspecified; E11.22 Type 2 diabetes mellitus with diabetic chronic kidney disease; E66.9 Obesity, unspecified; H40.9 Unspecified glaucoma; E87.5 Hyperkalemia; E03.9 Hypothyroidism, unspecified; E83.39 Other disorders of phosphorus metabolism; H26.9 Unspecified cataract; D63.1 Anemia in chronic kidney disease; E66.01 Morbid (severe) obesity due to excess calories; F17.210 Nicotine dependence, cigarettes, uncomplicated; Z79.4 Long term (current) use of insulin; Z86.73 Personal history of transient ischemic attack (TIA), and cerebral infarction without residual deficits; Z89.511 Acquired absence of right leg below knee; Z90.710 Acquired absence of both cervix and uterus; Z89.421 Acquired absence of other right toe(s); Z88.2 Allergy status to sulfonamides
CPT/HCPCS: A9284; C1892; J0690; J0696; J0881; J0882; J1644; J1815; J2405; J2916; J3010; J7030; J7512

== ENCOUNTER → 2019-12-15 | Outpatient (CLI) | payer MEDICAID ==
[~2019-12-15] MED LIST changes: +IPRATROPIUM BROM3 M1 IH; +LASIX 40MG TABL40 MG PO; +NORVASC 5MG5 MG/TAB PO; +PHOSLO667 MG PO; +PREDNISONE20 MG PO; +RT ADVAIR 228 DISKUS IH; +XELPROS2.5 ML OP
[2019-12-15 00:44] LABS: COLLECTION METHOD CLEAN CATCH
[2019-12-15 00:52] LABS: MUCOUS Present /lpf; PH 6 (5-8); URINE APPEARANCE Cloudy; URINE BACTERIA Rare /hpf; URINE BILIRUBIN Negative (NEGATIVE); URINE BLOOD Negative (NEGATIVE); URINE COLOR Yellow; URINE GLUCOSE 3+ (NEGATIVE); URINE KETONE Negative (NEGATIVE); URINE LEUKOCYTE ESTERASE 1+ (NEGATIVE); URINE NITRATE Negative (NEGATIVE); URINE PROTEIN(semi-quant) 3+ (NEGATIVE); URINE UROBILINOGEN Negative (NEGATIVE); URINE WBC >50 /hpf
== END ==
LOC: COL.LAB 00:16
PROVIDERS: Family Medicine
DX: N17.9 Acute kidney failure, unspecified (principal)

== ENCOUNTER 2019-12-20 18:01 | Inpatient (IN) | payer MEDICAID ==
[~2019-12-20] VITALS: Ht 167.6 cm; Wt 143.3 kg
[~2019-12-20 18:01] MED LIST changes: +XALATAN EYE DROPS OU; -XELPROS2.5 ML OP
--- NOTE | 2019-12-20 19:35 | NUR ---
Patient is a direct admit under Dr. Crockett. Patient came in due to infected port on her right chest. Patient has right below the knee amputation. She has fistula on left arm.
--- NOTE | 2019-12-20 21:00 | NUR ---
Informed Dr. Crockett via phone call that patient is already admitted at rm. 351. He said that he has seen the patient awhile ago. This nurse asked Dr. Crockett about patient's diet and said that she's on Dialysis Renal diet and fluid restriction of 1500ml. Medication Recon has been accomplished as well.
[2019-12-20 22:09] VITALS: BP 149/57; PULSE 69; TEMP 98.2
[2019-12-21] MEDS ORDERED: POLYMYXIN B/TRIMETH OD (05:58)
[2019-12-21] MEDS ORDERED: PREDFORTE5ML OD (06:00)
[2019-12-21] MEDS ORDERED: ACULAR 10 ML10 ML OD (06:03)
--- NOTE | 2019-12-21 07:52 | NUR ---
Received opthalmic drops from the detention. Updated med recon. No orders made yet by Dr. Crockett.
[2019-12-21 09:16] LABS: BASO % 0.4 % (0.0-2.0); EOS # 0.4 (0.0-0.7); EOS % 5.1 % (0-4.0); GRAN # 4.6 (1.4-6.5); GRAN % 55.3 % (42.2-75.2); HEMOGLOBIN 11.1 g/dl (12.5-16.0); LYMPH # 2.6 (1.2-3.4); LYMPH % 31.1 % (20.0-51.0); MEAN CELL VOLUME 96 fl (80.0-100.0); MEAN CORPUSCULAR HEMOGLOBIN 32 pg (27.0-31.0); MEAN CORPUSCULAR HGB CONC 33 g/dl (33.0-37.0); MEAN PLATELET VOLUME 11.2 fl (7.4-10.4); MONO # 0.6 (0.1-0.6); MONO % 6.9 % (1.7-9.3); PLATELET COUNT 183 K/mm3 (130-400); RED BLOOD COUNT 3.47 M/mm3 (4.10-5.30)
[2019-12-21 09:19] LABS: HEMATOCRIT 33.2 % (37.0-47.0)
[2019-12-21 09:20] LABS: CALCIUM 8.6 mg/dL (8.4-10.2); CREATININE, serum 4.08 (0.52-1.25); POTASSIUM 4.2 mmol/L (3.4-5.0)
[2019-12-21 15:06] VITALS: BP 117/36; PULSE 68; TEMP 98.5
--- NOTE | 2019-12-21 15:10 | NUR ---
JOSEPH met with the patient to discuss discharge plan. The patient resides at [facility] for long-term care. She states that she utilizes a wheelchair. The patient's PCP was Dr. Pathak, but Amarjit with [facility] reports that he is no longer at [facility] and that the patient would need to choose a new provider there. Either Dr. Ciro Dupont or Kaylie Grubbs updated the patient. The patient chose Dr. Dupont. JOSEPH informed Amarjit at [place] of this. The patient does not a DPOA-HC completed and she was not interested in completing one at this time. She states that she has five daughters and that she is still in touch with them. Her father, Froilan Hicks (ph#[phone]), is her next of kin and emergency contact. She states that he lives in [place] and that she last talked to him a couple days ago. JOSEPH faxed updates to Amarjit at [facility] and will continue to follow.
--- NOTE | 2019-12-21 18:00 | NUR ---
Patient slept most the day. Denies pain and nausea. She did have dialysis this morning. She was supposed to have a procedure this afternoon but they were not able to get it done today and don't know if they can do it tuesday. No other changes at this time. Call light within reach.
--- NOTE | 2019-12-21 20:00 | NUR ---
Received report DANUTA Padgett. Assessment complete. Alert and oriented. Denies any pain or discomfort at this time. Meds administered as ordered. Dialysis cath to RT upper chest with dressing in place, with redness, no drainage, denies pain. Lt arm restriction for ROSETTE fistula, without bruit or thrill. Pt able to transfer self to/from wheelchair. Needs met. Call light within reach.
[2019-12-21 22:39] VITALS: BP 139/52; PULSE 67; TEMP 98.9
[2019-12-22 03:47] VITALS: BP 133/55; PULSE 67; TEMP 98.7
--- NOTE | 2019-12-22 06:04 | NUR ---
At approximately 2300, this RN was informed by another RN that pt went outside via wc to smoke and was unable to get back in. This other RN went down to escort pt back medical unit. This RN spoke with pt and informed pt to remain on medical unit, pt verbalized understanding. Needs met. Call light within reach.
--- NOTE | 2019-12-22 07:12 | NUR ---
Report given to DANUTA Meeks.
--- NOTE | 2019-12-22 08:26 | NUR ---
Pt asleep upon entry, easily awakened, no C/O pain at this time, shift assessments complete, left Pt call light in reach, bed in lowest position.
[2019-12-22 08:44] VITALS: BP 115/54; BP 128/68; PULSE 68; TEMP 98.3
[2019-12-22 13:10] VITALS: BP 138/65; PULSE 62; TEMP 98.3
--- NOTE | 2019-12-22 14:00 | NUR ---
Patient states she feels hypoglycemic and is diaphoretic. Patient's blood sugar taken and is 38. Patient drinks 2 orange juices, an apple juice, and a regular sprite. She also ate 100% of her lunch.
--- NOTE | 2019-12-22 14:30 | NUR ---
Attempted to reassess blood sugar, but patiet refuses. She states "I don't want it rechecked, I feel a lot better". Patient educated on need to reassess to assure her blood sugar is within a safe range, but patient continues to refuse at this time.
[2019-12-22 16:55] VITALS: BP 127/61; PULSE 58; TEMP 97.6
--- NOTE | 2019-12-22 18:29 | NUR ---
Pt rested in the room today, no C/O pain today, Pt slept. VS have remained stable.
[2019-12-22 19:31] VITALS: BP 107/48; PULSE 66; TEMP 97.9
--- NOTE | 2019-12-22 20:00 | NUR ---
Received report from DANUTA Meeks. Assessment complete. Alert and oriented. Family at bedside. Denies any pain or discomfort at this time. Meds administered. HD to Rt upper chest intact, slight redness, dressing CDI. ROSETTE fistula without bruit or thrill. Needs met. Call light within reach.
[2019-12-22 23:12] VITALS: BP 114/20; PULSE 70; TEMP 98.5
--- NOTE | 2019-12-23 01:20 | NUR ---
Pt and pt dtr informed staff that they will be going down to the [facility]. This RN worried that pt will go outside to smoke. Security notified. Security then called to notify this RN that pt and pt dtr went outside to smoke right outside ER door. Another RN informed pt and pt dtr about smoking policy and safety of pt about leaving the medical unit. Pt verbalized understanding of policy and was made aware of this the day prior. Pt and pt dtr returned to medical unit and was again advised not to leave unit and of smoking policy.
[2019-12-23 03:53] VITALS: BP 139/52; PULSE 67; TEMP 98.4
--- NOTE | 2019-12-23 06:24 | NUR ---
Pt was able to fall asleep late in the night without any complaints. Needs met. Call light within reach.
--- NOTE | 2019-12-23 06:53 | NUR ---
Report given to DANUTA Meeks.
[2019-12-23 08:06] VITALS: BP 126/41; PULSE 69; TEMP 98.1
--- NOTE | 2019-12-23 08:38 | NUR ---
Asleep upon entry, easily awakened, no C/O pain at this time, shift assessments complete, left Pt call light in reach, bed in lowest position.
[2019-12-23 09:58] LABS: BASO % 0.4 % (0.0-2.0); EOS # 0.4 (0.0-0.7); EOS % 4.1 % (0-4.0); GRAN # 6.8 (1.4-6.5); GRAN % 64.9 % (42.2-75.2); HEMOGLOBIN 11.4 g/dl (12.5-16.0); LYMPH # 2.3 (1.2-3.4); LYMPH % 22.2 % (20.0-51.0); MEAN CELL VOLUME 94 fl (80.0-100.0); MEAN CORPUSCULAR HEMOGLOBIN 32 pg (27.0-31.0); MEAN CORPUSCULAR HGB CONC 34 g/dl (33.0-37.0); MEAN PLATELET VOLUME 11.1 fl (7.4-10.4); MONO # 0.8 (0.1-0.6); MONO % 7.3 % (1.7-9.3); PLATELET COUNT 194 K/mm3 (130-400); RED BLOOD COUNT 3.59 M/mm3 (4.10-5.30); REDCELL DISTRIBUTION WIDTH-CV 13.8 % (11.5-14.5)
[2019-12-23 10:00] LABS: HEMATOCRIT 33.9 % (37.0-47.0)
[2019-12-23 10:13] LABS: CALCIUM 8.8 mg/dL (8.4-10.2); CREATININE, serum 3.6 (0.52-1.25); POTASSIUM 4.4 mmol/L (3.4-5.0)
--- NOTE | 2019-12-23 14:17 | NUR ---
mud car worker faxed updates including facesheet, medications, nursing and progress notes to Amarjit lan [facility].
[2019-12-23 16:04] VITALS: BP 115/40; PULSE 69; TEMP 99.4
--- NOTE | 2019-12-23 18:40 | NUR ---
Pt resting in the room this afternoon, Pt left floor this morning for dialysis and returned about 1200, reported 4300ml removed from Pt, Pt tired upon return to floor and slept this afternoon, VS have remained stable.
[2019-12-23 19:54] VITALS: BP 140/60; PULSE 71; TEMP 99.6
--- NOTE | 2019-12-23 20:00 | NUR ---
Received report from DANUTA Meeks. Assessment complete. Pt sleeping. Alert and oriented. Denies any pain or discomfort at this time. Meds administered. NPO midnight, pt verbalizes understanding in preparation for procedure tmrw. Dialysis cath to Rt upper chest intact, dressing CDI. ROSETTE fistula without bruit or thrill. Needs attended too. Call light within reach.
[2019-12-23 23:52] VITALS: BP 137/51; PULSE 80; TEMP 99.2
[2019-12-24] VITALS (8 sets, daily range): BP systolic 127–168; BP diastolic 36–96; PULSE 54–79; TEMP 98–98.9
--- NOTE | 2019-12-24 05:20 | NUR ---
Pt slept through the night without any complaints. Meds administered. Call light within reach. NPO since midnight.
--- NOTE | 2019-12-24 07:00 | NUR ---
Report received from DANUTA Celestin. pT in bed resting wit eyes closed, will continue to monitor.
--- NOTE | 2019-12-24 07:24 | NUR ---
Report given to DANUTA Beckford.
--- NOTE | 2019-12-24 09:25 | NUR ---
Assessment charted. Pt awake and alert, asked for assistance with changing "diaper" and linens d/t incontinence. Pt asked to get up to chair while changing linens but pt refused, asked if she wanted shampoo shower cap but she states unless we do it for her she is not interested. Pt denies pain, nervous about fistulogram today but agreeable to procedure. Anesthesia attempted to start peripheral IV but was unsuccessful, Radiologist Ivester aware and per him he will use the HD catheter. ROSETTE AV fistula, unable to palpate or hear any bruit or thrill. Will continue to monitor.
--- NOTE | 2019-12-24 10:06 | NUR ---
SEE MERGE FOR MEDICATION ADMINISTRATION TIMES AND INTRA AND POST SEDATION ASSESSMENTS.
--- NOTE | 2019-12-24 16:22 | NUR ---
JOSEPH contacted and faxed updates to Amarjit at [facility]. JOSEPH to continue to follow.
--- NOTE | 2019-12-24 18:26 | NUR ---
Pt resting in chair at side of bed with family at bedside vistiing. Took pt down to gift shop per request today. Pt able to get to w/c independently with setup assistance. Denies pain or other needs. Will give bedside shift report to nightshift nurs who will resume care.
--- NOTE | 2019-12-24 19:00 | NUR ---
Received report from Sanaz, seen patient awake, sitting in her wheelchair. Relatives in the bedside. Re-instructed about fluid restriction.
--- NOTE | 2019-12-24 21:00 | NUR ---
Patient states she wants to roam around since she's bored and wants to go to courtyard. This nurse is worried that she would just go there to smoke. Informed patient she can roam around within the floor only and i will asssit her but she cannot go to courtyard. Patient insist on going down to ER but instructed her she's not allowed to go down.
--- NOTE | 2019-12-24 21:30 | NUR ---
Patient was not in the hallway of the floor. This nurse went down and saw patient outside the entrance door smoking. Assisted patient in going back to room and this nurse informed her charge nurse, Patricia, about what this patient did. Ptaricia went to talk to the patient.
[2019-12-25] VITALS: BP 144/51; PULSE 74; TEMP 99
[2019-12-25 05:42] VITALS: BP 157/55; PULSE 71; TEMP 98
[2019-12-25 08:09] VITALS: BP 154/63; PULSE 77; TEMP 98.7
[2019-12-25] MEDS ORDERED: COREG 6.256.25 MG/TA PO (11:46)
[2019-12-25 12:29] VITALS: BP 123/52; PULSE 62; TEMP 98.3
--- NOTE | 2019-12-25 14:15 | NUR ---
The patient is to discharge today, 12/25, back to [facility] for long-term care. Transportation was scheduled for 1500, via [employer]. JOSEPH informed the patient and her RN. They were both in agreeance to the time. No additional needs at this time.
[2019-12-25 14:37] VITALS: BP 123/52; PULSE 62; TEMP 98.3
--- NOTE | 2019-12-25 16:05 | NUR ---
PATIENT DC TO [facility] @ 1500 VIA [facility] TRANSP[facility]. AT TIME OF TRANSFER PATIENT A/O X 4. NO C/O PAIN OR DISCOMFORT. TRANSFERRED SELF WITH STAND BY ASSIST FROM BED TO WC. NO COMPLAINTS OR CONCERNS AT TIME OF DISCHARGE. TRANSFER PACKET SENT WITH [facility] STAFF.
--- NOTE | 2019-12-25 16:26 | NUR ---
CALL TO [facility] # [phone]. PHONE REPORT GIVEN TO MARITZA TIPTON. ENCOURAGED TO CALL WITH ANY QUESTIONS OR CONCERNS.
== END 2019-12-25 15:00 | DRG 252 ==
LOC: MEDICAL 18:01
PROVIDERS: ADMIT Internal Medicine Nephrology
PROC: 5A1D70Z Performance of Urinary Filtration, Intermittent, Less than 6 Hours Per Day (ICD-10-PCS; 2019-12-21)
PROC: 03C83ZZ Extirpation of Matter from Left Brachial Artery, Percutaneous Approach (ICD-10-PCS; principal; 2019-12-24)
PROC: 3E05317 Introduction of Other Thrombolytic into Peripheral Artery, Percutaneous Approach (ICD-10-PCS; 2019-12-24)
PROC: B31JYZZ Fluoroscopy of Left Upper Extremity Arteries using Other Contrast (ICD-10-PCS; 2019-12-24)
DX: T82.898A Other specified complication of vascular prosthetic devices, implants and grafts, initial encounter (principal); N18.6 End stage renal disease; I50.22 Chronic systolic (congestive) heart failure; I13.2 Hypertensive heart and chronic kidney disease with heart failure and with stage 5 chronic kidney disease, or end stage renal disease; E66.9 Obesity, unspecified; T82.7XXA Infection and inflammatory reaction due to other cardiac and vascular devices, implants and grafts, initial encounter; J44.9 Chronic obstructive pulmonary disease, unspecified; E03.9 Hypothyroidism, unspecified; F17.210 Nicotine dependence, cigarettes, uncomplicated; F32.9 Major depressive disorder, single episode, unspecified; D63.1 Anemia in chronic kidney disease; E11.22 Type 2 diabetes mellitus with diabetic chronic kidney disease; Y83.9 Surgical procedure, unspecified as the cause of abnormal reaction of the patient, or of later complication, without mention of misadventure at the time of the procedure; Z79.4 Long term (current) use of insulin; Z99.2 Dependence on renal dialysis; Z86.73 Personal history of transient ischemic attack (TIA), and cerebral infarction without residual deficits; Z88.2 Allergy status to sulfonamides; Z90.710 Acquired absence of both cervix and uterus; Z89.511 Acquired absence of right leg below knee
CPT/HCPCS: J1644; J1815; J2250; J2997; J3010; J3370; J7030; J7050; Q9967

== ENCOUNTER 2020-01-26 10:54 | Inpatient (IN) | payer MEDICAID ==
[~2020-01-26] VITALS: Ht 167.6 cm; Wt 148.4 kg
[~2020-01-26 10:54] MED LIST changes: +ACULAR 10 ML10 ML OD; +COREG 6.256.25 MG/TA PO; +POLYMYXIN B/TRIMETH OD; +PREDFORTE5ML OD
[2020-01-26 11:42] LABS: BASO % 0.2 % (0.0-2.0); EOS # 0.2 (0.0-0.7); EOS % 1.8 % (0-4.0); GRAN % 62.8 % (42.2-75.2); HEMOGLOBIN 10.3 g/dl (12.5-16.0); LYMPH # 2.1 (1.2-3.4); LYMPH % 22.4 % (20.0-51.0); MEAN CELL VOLUME 98 fl (80.0-100.0); MEAN CORPUSCULAR HEMOGLOBIN 32 pg (27.0-31.0); MEAN CORPUSCULAR HGB CONC 33 g/dl (33.0-37.0); MEAN PLATELET VOLUME 10.8 fl (7.4-10.4); MONO # 1.1 (0.1-0.6); MONO % 11.8 % (1.7-9.3); PLATELET COUNT 209 K/mm3 (130-400); RED BLOOD COUNT 3.25 M/mm3 (4.10-5.30); REDCELL DISTRIBUTION WIDTH-CV 13.6 % (11.5-14.5)
[2020-01-26] MEDS ORDERED: TAMIFLU30 MG PO (11:51)
[2020-01-26] MEDS ORDERED: LANTUS SOLOS100 U/ML SQ (11:51)
[2020-01-26] MEDS ORDERED: HUMALOG PEN100 U/ML SQ (11:53)
[2020-01-26] MEDS ORDERED: RT ADVAIR 228 DISKUS IH (11:53)
[2020-01-26 11:55] LABS: ALBUMIN 4.1 gm/dL (3.5-5.0); BILIRUBIN,TOTAL 0.4 mg/dL (0.0-1.0); C-REACTIVE PROTEIN 4.3 mg/dL (0.0-0.9); CALCIUM 8.7 mg/dL (8.4-10.2); CREATININE, serum 5.35 (0.52-1.25); MAGNESIUM 2.2 mg/dL (1.6-2.3); PHOSPHOROUS 4.8 mg/dL (2.5-4.5); POTASSIUM 3.9 mmol/L (3.4-5.0)
[2020-01-26 11:57] LABS: HEMATOCRIT 31.7 % (37.0-47.0)
[2020-01-26 12:04] LABS: TROPONIN-I 0.016 ng/mL (0.000-0.035)
[2020-01-26 12:19] LABS: PROTHROMBIN TIME 11.3 SECONDS (9.7-12.8)
[2020-01-26 12:21] LABS: PARTIAL THROMBOPLASTIN TIME 31.7 SECONDS (26.0-37.0)
[2020-01-26 12:27] LABS: COLLECTION METHOD CLEAN CATCH
[2020-01-26 13:00] LABS: PH 5 (5-8); URINE APPEARANCE Hazy; URINE COLOR Yellow; URINE GLUCOSE 1+ (NEGATIVE); URINE PROTEIN(semi-quant) 3+ (NEGATIVE)
[2020-01-26 13:01] LABS: URINE BILIRUBIN Negative (NEGATIVE); URINE KETONE Negative (NEGATIVE)
[2020-01-26 13:02] LABS: URINE BLOOD Negative (NEGATIVE); URINE LEUKOCYTE ESTERASE Negative (NEGATIVE); URINE NITRATE Negative (NEGATIVE); URINE UROBILINOGEN Negative (NEGATIVE)
--- NOTE | 2020-01-26 14:40 | NUR ---
Pt arrives to medical unit rm [id number] from ED via cart, awake and alert, reports continued pain to back on the right side 10 out of 10 that is worst with movement. HD catheter to right chest with slight redness superior to insertion site and pt reports soreness. Saline lock IV to right hand without s/s of complications. Pt requests diet Sprite. No further needs reported. Call light in reach.
[2020-01-26 15:42] VITALS: BP 187/69; PULSE 83; TEMP 99.9
--- NOTE | 2020-01-26 16:35 | NUR ---
Pt reports continued severe pain/spasm to lower back wrapping around to left flank. Provider called and new orders received.
--- NOTE | 2020-01-26 17:15 | NUR ---
Pt reports incontinence of urine, ready to be cleansed now that pain is better controlled with patch and IV medication.
--- NOTE | 2020-01-26 17:42 | NUR ---
Korey MAO called to acquire information regarding Tamiflu per provider's orders. No answer, message left.
[2020-01-26 20:16] VITALS: BP 174/71; PULSE 78; TEMP 102.2
--- NOTE | 2020-01-26 20:54 | NUR ---
Pt Laying in bed, c/o pain. Pain medication given. Pt assessment complete. No further concerns at this time.
[2020-01-27] VITALS (9 sets, daily range): BP systolic 142–174; BP diastolic 41–62; PULSE 71–84; TEMP 99.1–102
--- NOTE | 2020-01-27 07:30 | NUR ---
Assessment complete. Pt resting in bed, awake, drowsy, oriented x 4. Pt reports pain slightly decreased following previous dose of pain medication, back still hurting, 7 out of 10 at this time. O2 at 2 L/min via NC. Pt states, "I feel like my blood sugar is still a little low, I'm ready for breakfast." Pt does not want insulin with breakfast this morning with low blood sugar reading. Saline lock IV to right hand without s/s of complications. No further needs reported. Call light in reach.
--- NOTE | 2020-01-27 16:00 | NUR ---
Dressing over dialysis catheter to right chest removed, small dime size drainage to old dressing. Site cleansed with sterile technique and new dressing placed per doctor's order. Pt continues to have back pain, receiving pain medication when available. No further needs reported. Call light in reach.
[2020-01-28 04:17] VITALS: BP 157/56; PULSE 73; TEMP 98.9
[2020-01-28 07:37] VITALS: BP 150/59; PULSE 74; TEMP 99.8
[2020-01-28 11:07] LABS: BASO % 0.3 % (0.0-2.0); EOS # 0.1 (0.0-0.7); EOS % 0.7 % (0-4.0); GRAN # 9.1 (1.4-6.5); GRAN % 79.1 % (42.2-75.2); LYMPH # 1.1 (1.2-3.4); LYMPH % 9.8 % (20.0-51.0); MEAN CELL VOLUME 96 fl (80.0-100.0); MEAN CORPUSCULAR HGB CONC 33 g/dl (33.0-37.0); MEAN PLATELET VOLUME 11.2 fl (7.4-10.4); MONO # 1.1 (0.1-0.6); MONO % 9.4 % (1.7-9.3); PLATELET COUNT 166 K/mm3 (130-400); RED BLOOD COUNT 2.76 M/mm3 (4.10-5.30); REDCELL DISTRIBUTION WIDTH-CV 13.3 % (11.5-14.5)
[2020-01-28 11:08] LABS: HEMATOCRIT 26.6 % (37.0-47.0); HEMOGLOBIN 8.8 g/dl (12.5-16.0); MEAN CORPUSCULAR HEMOGLOBIN 32 pg (27.0-31.0)
[2020-01-28 14:04] LABS: ALBUMIN 3.5 gm/dL (3.5-5.0); CALCIUM 7.9 mg/dL (8.4-10.2); CREATININE, serum 7.21 (0.52-1.25); PHOSPHOROUS 7.6 mg/dL (2.5-4.5); POTASSIUM 4.7 mmol/L (3.4-5.0)
--- NOTE | 2020-01-28 16:16 | NUR ---
Auto Body Builder Apprentice met with patient to discuss discharge planning. Patient lives at [facility] and states she has been there since September. Patient sees Dr. Dupont for primary care and has her medications administered by [facility]. Patient uses a wheelchair for mobility and receives assistance with ADLS from staff at [facility]. Patient does not have Advance Directives and was not interested in establishing DPOA- at this time. Patient's father Froilan (ph#[phone]) lives in [place]. Patient states she plans to return to [facility] upon discharge. SW presented Patient Preference Form and patient verbalized understanding then provided signature. JOSEPH contacted Amarjit at [facility] then faxed updates. SW to continue to follow.
[2020-01-28 17:12] VITALS: BP 154/50; PULSE 82; TEMP 101.5
--- NOTE | 2020-01-28 19:31 | NUR ---
patient had dialysis today. [facility] dialysis nurse reported that 3400mL fluid was extracted. patient have continuous complain of lower back pain. got a sputum culture. Dr Crockett was informed of temperature of 101.5 this evening. No intervention was order. Patient had a BP>160, I administered Hydralizine one time. Patient remained on 2L of oxygen all day.
--- NOTE | 2020-01-28 19:40 | NUR ---
Pt resting with HOB elevated. Reports pain in L lumbar region that radiates across lower back. She rates pain 10/10 and "increasing with movement". IV pain medication given per patient request to R H INT. Pt is alert and oriented. No acute distress is noted. Respirations even and unlabored. Lungs clear. Bilateral lung bases are diminished. O2@1.5L via NC. Spo2 is currently 94%. Pt reports productive cough, but that was not assessed while in the room. Sputum culture pending. Heart rate and rhythm normal. Abdomen is soft, nontender. BS+. R BKA noted. R Chest Dialysis catheter noted with some redness at site. Dressing is clean dry and intact. Pt also has a LFA fistula that pt reports is nonfunctioning. L limb restriction. Pt denies further needs at this time.
[2020-01-28 20:11] VITALS: BP 158/59; PULSE 80; TEMP 101.3
--- NOTE | 2020-01-28 20:15 | NUR ---
Pts temperature is elevated at 101.3. Provider aware of this trend. Temp has decreased from previous reading. Pts blood pressure also slightly elevated. Orders noted for PRN blood pressure medication and Tylenol for fever. Not given at this time.
--- NOTE | 2020-01-28 21:45 | NUR ---
Pt reports increased pain- 10/10 in L lumbar region. Pain is exacerbated with movement. PRN pain medication given per pt request. IV site dressing peeling off. Site redressed. Flushes appropriately.
[2020-01-28 22:54] VITALS: BP 135/55; PULSE 79; TEMP 100.9
--- NOTE | 2020-01-28 23:19 | NUR ---
Pt reports pain has increased to a 9/10 in L lumbar region. Pt reports that pain medication has helped previously, as has the heat pack that was made for her. PRN pain medication given again, slow IV push. Pt reports "I can't feel that you gave it to me". Pt reassured.
--- NOTE | 2020-01-28 23:25 | NUR ---
Pt temperature will elevated but trending down. Blood pressure is now WNL.
--- NOTE | 2020-01-28 23:52 | NUR ---
Pt reports no pain relief from pain medication at this time.
[2020-01-29] VITALS (8 sets, daily range): BP systolic 127–184; BP diastolic 49–67; PULSE 59–80; TEMP 98.4–100.9
--- NOTE | 2020-01-29 00:27 | NUR ---
Pt called reporting pain 10/10 in L lumbar region that increases with movement. Second dose of PRN pain medication given early per MD order. Will reassess for effectiveness. Pt is alert, awake and oriented.
--- NOTE | 2020-01-29 00:45 | NUR ---
Pt reports that pain has decreased to 5/10 and is "better".
--- NOTE | 2020-01-29 02:30 | NUR ---
Pt rating L lumbar pain 07/07. PRN pain medication given per pt request.
--- NOTE | 2020-01-29 04:00 | NUR ---
Pt called reporting "the cap on my port came off". Upon assessment of the patient, the patient reports that she is talking about her dialysis catheter. She thought there was no dressing on the site because she "couldn't feel anything". Dialysis catheter has a guaze and tegaderm dressing. Dressing is clean, dry and intact.
--- NOTE | 2020-01-29 04:30 | NUR ---
Pt reports pain 8/10 in L lumbar region. Pain is constant and increases with movement. Pt reports that pain decreases with pain medication administration to a more tolerable level. Pain medication given.
--- NOTE | 2020-01-29 06:27 | NUR ---
Pt resting this AM. Reports pain has increased to 8/10 again in L lumbar region. Pain has been constant throughout the night with some relief with pain medication every 2 hours. Pt reports "I think I am becoming immune to this medication". Pt educated about Lidocaine patches that will be applied during day shift. Pts temperature is still elevated at 100.9 but has not gone back up. O2@2L via NC. O2 sats have been stable in mid 90s. Blood pressure has been stable since administration of HS Norvasc.
--- NOTE | 2020-01-29 07:40 | NUR ---
Assessment completed, alert/oriented, vital signs stable/ still having low grade fever and is aware, sputum and Blood Cx pending, RVP + and patient is in droplet p/c, non-productive cough noted, lungs diminihsed, on 2L. o2 and this is not a home therapy for her, heart RRR, she conitnues to report 10/10 low lef-sided back pain, applied 2 Lidocaine patches and we are giving dilaudid PRN, patient has requested the dilauded and I have explained it has only been an hour sence her last dose was given/ she called me a "liar", myself and OG Wise are taking her to [facility] 18 at this time via her bed
[2020-01-29 08:19] LABS: BASO % 0.3 % (0.0-2.0); EOS # 0.1 (0.0-0.7); EOS % 1.6 % (0-4.0); GRAN # 5.8 (1.4-6.5); LYMPH # 1.8 (1.2-3.4); LYMPH % 19.6 % (20.0-51.0); MEAN CELL VOLUME 97 fl (80.0-100.0); MEAN CORPUSCULAR HGB CONC 32 g/dl (33.0-37.0); MEAN PLATELET VOLUME 11.2 fl (7.4-10.4); MONO # 1.2 (0.1-0.6); MONO % 13.4 % (1.7-9.3); PLATELET COUNT 169 K/mm3 (130-400); RED BLOOD COUNT 2.88 M/mm3 (4.10-5.30); REDCELL DISTRIBUTION WIDTH-CV 13.4 % (11.5-14.5)
[2020-01-29 08:22] LABS: HEMATOCRIT 27.9 % (37.0-47.0); HEMOGLOBIN 8.9 g/dl (12.5-16.0); MEAN CORPUSCULAR HEMOGLOBIN 31 pg (27.0-31.0)
[2020-01-29 08:31] LABS: ALBUMIN 3.6 gm/dL (3.5-5.0); BILIRUBIN,TOTAL 0.3 mg/dL (0.0-1.0); CALCIUM 8.3 mg/dL (8.4-10.2); CREATININE, serum 5.53 (0.52-1.25); POTASSIUM 4.8 mmol/L (3.4-5.0); TOTAL PROTEIN 7.4 gm/dL (6.4-8.2)
--- NOTE | 2020-01-29 15:32 | NUR ---
Headliner Installer contacted Amarjit at [facility] and faxed updates. JOSEPH to continue to follow.
--- NOTE | 2020-01-29 19:26 | NUR ---
Patient has suspected allergic reaction to Zosyn infusion around 1800, reported itching/SOA/diaphoresis, infusion stopped and notified, I gave IV Benadryl as ordered, Vital signs remained stable throughout (see chart), notified pharmacy to d/c and add to allergy list, continue to monitor patient closely, report given to night nurse DANUTA Austin
--- NOTE | 2020-01-30 00:12 | NUR ---
Patient doing well tonight. alert and oriented. c/o moderate to severe pain 8/10 to L lower back. prn dilaudid given. dressing to R chest CDI. lidocaine patches to back removed. patient continues to complain of increased diaphoresis, thermostat turned down, new gown administered. suggested ice or cool rag to forehead, patient refuses. ate a sandwich and applesauce. took scheduled medications without issue. no further needs at this time. will continue to monitor.
[2020-01-30 05:25] VITALS: BP 118/57; PULSE 59; TEMP 97.7
[2020-01-30 07:53] VITALS: BP 117/59; PULSE 58; TEMP 97.6
--- NOTE | 2020-01-30 08:30 | NUR ---
Assessment complete. Pt resting in bed, A&O x 3, reports pain to left lower back 7 out of 10 on pain scale, requesting PRN medication which is administered along with sched pain patches. Saline lock IV lines to right wrist and hand, right hand site not flushing but pt refuses to allow it to be removed; right wrist site flushes but positional; no s/s of infiltration or phlebitis. O2 at 2 L/min via NC. Dressing over right chest CDI. No further needs reported. Call light in reach.
[2020-01-30 12:15] VITALS: BP 145/61; PULSE 61; TEMP 98.3
--- NOTE | 2020-01-30 15:54 | NUR ---
Pt sitting up in bed, reports left back pain has increased again to 8 out of 10, requesting IV pain medication. This nurse admininsters dose per orders and explains to pt the addition of oral PRN pain medication which should help to maintain pain management for longer than IV medication. Pt verbalizes understanding.
[2020-01-30 17:15] VITALS: BP 129/64; PULSE 57; TEMP 98.2
--- NOTE | 2020-01-30 18:10 | NUR ---
Pt concerned about blood sugar of 77 being too low and requesting something to bring it up, juice and crackers offered, pt refusing juice, would take crackers. Pt asks when she can have pain medication again, this nurse reviews trying a second tab of the oral pain medication if the previous 1 tab is not relieving the pain enough. Pt states, "did he cut me off from the other IV medication?" This nurse tries to explain attempting to use the IV medication only when absolutely needed, pt states, "I want it now." This nurse getting medication.
--- NOTE | 2020-01-30 19:30 | NUR ---
Received report from Fern. Patient is awake, lying on bed. With INT on right hand and right wrist. With O2 at 2lpm via NC. On left arm restrict, droplet and contact precaution. Complains of pain on left back/flank, pain score of 8/10.
--- NOTE | 2020-01-30 20:00 | NUR ---
INT on right hand is not flushing. INT removed. Her INT on right wrist is positional and catheter can be seen already. Still flushing well with NS. Patient removed dressing in her right chest and states it feels itchy. This nurse applied gauze and tape to cover the incision.
[2020-01-30 20:29] VITALS: BP 131/58; PULSE 62; TEMP 97.9
--- NOTE | 2020-01-30 22:50 | NUR ---
Dr. Gonzalez called and asked about status of patient. Informed him that patient doesn't have a fever right now. Vital signs are stable and she just complains of pain on her left side/flank. Dr. Gonzalez asked if she still have dialysis catheter and this nurse told him that they had it removed already. He ordered Vancomycin.
--- NOTE | 2020-01-30 23:30 | NUR ---
Informed Sukumar, laundry housekeeper, for IV insertion since patient is a hard stick and needs Vancomycin. INT on right wrist is positional and not working well so this nurse just removed it. Sukumar was able to insert INT on her right hand, flushing well.
--- NOTE | 2020-01-30 23:49 | NUR ---
Vancomycin started. Changed patients's pad and briefs. Repositioned patient as well.
[2020-01-31] VITALS (7 sets, daily range): BP systolic 119–156; BP diastolic 44–68; PULSE 61–69; TEMP 98.1–98.7
--- NOTE | 2020-01-31 06:29 | NUR ---
Patient has been complaining of pain on her left lumbar. With pain score of 8/10. Dilaudid PRN given. INT on right hand infusing well, flushed with NS. Will endorse to day shift nurse.
--- NOTE | 2020-01-31 07:08 | NUR ---
Vancomycin Initial Dosing Pharmacy Note Ordering provider: Abhishek Crockett MD Indication/duration: bacteremia LABS: WBC 9, dialysis pt, CrCl <20 Recommendation: vancomycin by level Loading dose: 2 grams Maintenance dose: to be determined by levels Trough goal: 15-20 ug/mL. trough before next HD session
--- NOTE | 2020-01-31 11:00 | NUR ---
Assessment complete. Pt laying in bed. Responds when spoken to but otherwise not very conversational. States she is in alot of pain. PRN pain medication given, she states the lidocaine patches help alot. Noted Right BKA. IV site CD&I. Eye drops were provided. No pain in cath removal site. L arm restriction noted. No further needs were expressed at this time. Call light is in reach.
--- NOTE | 2020-01-31 16:50 | NUR ---
JOSEPH faxed updates to Amarjit at [facility].
--- NOTE | 2020-01-31 17:27 | NUR ---
Pt has been in constant pain throughout the day. Physician is aware. She has been covered with both PRN pain medications, pain worsens with movement. She is aware of her POC and that she needs to shower today before her procedure. No further needs were expressed at this time. Call light in reach.
--- NOTE | 2020-01-31 19:00 | NUR ---
Received report from Vivi. Patient was currently in the bathroom, taking a bath. Patient still with pain on her left lumbar with pain score of 8/10.
--- NOTE | 2020-01-31 20:00 | NUR ---
Patient's done with her bath and assisted her in going back to bed. Instructed patient she cannot eat and drink by midnight. Patient verbalizes understanding.
--- NOTE | 2020-01-31 23:40 | NUR ---
Patient complained of pain on her left lumbar with pain score of 8/10. Tried flushing her INT before giving the Dilaudid but it was leaking. Patient is a hard stick. Informed Mikaela, charge nurse, for re-insertion. She was able to insert IV on her right forearm, G20. Removed previous IV.
[2020-02-01] VITALS (12 sets, daily range): BP systolic 110–152; BP diastolic 40–89; PULSE 58–69; TEMP 97.5–98.6
--- NOTE | 2020-02-01 06:12 | NUR ---
Patient still complains of having pain but not as frequent as the last time. PRN Dialudid given. Reinforced on NPO. Patient states she's ready for her procedure this morning.
--- NOTE | 2020-02-01 08:10 | NUR ---
Patient awake, yet drowsy, lying in bed at time of assessment. She complains of back pain 8/, .25 ml dilaudid administered for this. She has been incontinent of urine in her brief; this is changed and faustino care is provided. Right chest old dialysis catheter site appears slightly reddened but is not warm to touch and does not cause the patient any pain. She is taken down to have new dialysis catheter placed at 0810. Morning medications have been held until she returns from procedure.
--- NOTE | 2020-02-01 08:43 | NUR ---
SEE MERGE DOCUMENTATION FOR MEDICATION ADMINISTRATION TIMES AND INTRA/POST PROCEDURE SEDATION TIMES.
--- NOTE | 2020-02-01 10:00 | NUR ---
Patient has returned from dialysis catheter placement. She is slightly drowsy but responds to speech, touch and pain. At this time she was moved to room 352 because her current bed is stuck in the highest position. Both medical and surgical supervisors are called to help and no one could get the bed to go down. Post op blood pressures are running low with the first one 110/48 so BP morning med is held due to this and because she will be dialyzed today. She is settled in new room and is eating breakfast.
--- NOTE | 2020-02-01 12:35 | NUR ---
Patient to dialysis at this time. Eyedrops given prior to dialysis.
[2020-02-01 13:04] LABS: BASO % 0.5 % (0.0-2.0); EOS # 0.4 (0.0-0.7); EOS % 6.3 % (0-4.0); GRAN # 3.7 (1.4-6.5); GRAN % 55.3 % (42.2-75.2); LYMPH # 1.7 (1.2-3.4); LYMPH % 24.8 % (20.0-51.0); MEAN CELL VOLUME 98 fl (80.0-100.0); MEAN CORPUSCULAR HGB CONC 32 g/dl (33.0-37.0); MEAN PLATELET VOLUME 11.2 fl (7.4-10.4); MONO # 0.8 (0.1-0.6); MONO % 11.4 % (1.7-9.3); PLATELET COUNT 209 K/mm3 (130-400); RED BLOOD COUNT 2.63 M/mm3 (4.10-5.30); REDCELL DISTRIBUTION WIDTH-CV 13.5 % (11.5-14.5)
[2020-02-01 13:18] LABS: HEMATOCRIT 25.7 % (37.0-47.0); HEMOGLOBIN 8.2 g/dl (12.5-16.0); MEAN CORPUSCULAR HEMOGLOBIN 31 pg (27.0-31.0)
[2020-02-01 13:27] LABS: CALCIUM 8.3 mg/dL (8.4-10.2); CREATININE, serum 8.17 (0.52-1.25)
[2020-02-01 13:35] LABS: POTASSIUM 5.9 mmol/L (3.4-5.0)
--- NOTE | 2020-02-01 16:20 | NUR ---
Patient has returned from dialysis at this time. She complains of soreness in her dialysis catheter which was inserted earlier this morning. She is set up with her lunch and does not voice any other concerns at this moment.
--- NOTE | 2020-02-01 16:28 | NUR ---
[facility] Hospital faxed updates to [facility]. JOSEPH spoke with Dr. Crockett who advised patient may discharge tomorrow. JOSEPH attempted to call Amarjit at [facility] three times and left a voicemail. JOSEPH also put a note on fax cover sheet with updates that patient may discharge tomorrow. SW to continue to follow.
--- NOTE | 2020-02-01 16:53 | NUR ---
JOSEPH received a voicemail for Amarjit at [facility] stating that they do not have transport on Tuesday. She states that they would have transport on Tuesday or Tuesday, if the patient is ready to discharge then.
--- NOTE | 2020-02-01 18:44 | NUR ---
Today, patient had dialysis catheter placed this morning and then was dialyzed shortly after. She has complained of significant pain throughout the day in her back and neck and has been medicated with lidocaine pain patch and dilaudid. The plan is to dialyze again tomorrow. She is currently sitting in bed, watching tc and eating dinner. Shift report given to DANUTA Escobar.
--- NOTE | 2020-02-01 19:00 | NUR ---
Pt laying in bed. Has no c/o pain or discomfort at this time. Assessment completed. Pt will call when in need of pain management or in need of being cleaned up. Call light within reach, personal belongings at bedside. No further concerns at this time.
[2020-02-02 03:49] VITALS: BP 120/52; PULSE 60; TEMP 98.5
[2020-02-02 06:30] LABS: BASO % 0.4 % (0.0-2.0); EOS # 0.4 (0.0-0.7); EOS % 5.6 % (0-4.0); GRAN % 50.8 % (42.2-75.2); LYMPH # 2.1 (1.2-3.4); LYMPH % 27.1 % (20.0-51.0); MEAN CELL VOLUME 98 fl (80.0-100.0); MEAN CORPUSCULAR HGB CONC 32 g/dl (33.0-37.0); MEAN PLATELET VOLUME 10.8 fl (7.4-10.4); MONO % 12.5 % (1.7-9.3); PLATELET COUNT 214 K/mm3 (130-400); RED BLOOD COUNT 2.76 M/mm3 (4.10-5.30); REDCELL DISTRIBUTION WIDTH-CV 13.5 % (11.5-14.5)
[2020-02-02 06:39] LABS: CALCIUM 8.6 mg/dL (8.4-10.2); CREATININE, serum 5.36 (0.52-1.25); POTASSIUM 5.7 mmol/L (3.4-5.0)
[2020-02-02 06:43] LABS: HEMATOCRIT 26.9 % (37.0-47.0); HEMOGLOBIN 8.5 g/dl (12.5-16.0); MEAN CORPUSCULAR HEMOGLOBIN 31 pg (27.0-31.0)
--- NOTE | 2020-02-02 07:48 | NUR ---
Pt had an uneventful shift. Pain was managed with q2h dilaudid. Pt left floor for dialysis at 6:15. Report given to DANUTA Meeks. No further concerns.
[2020-02-02 08:41] VITALS: BP 119/77; PULSE 71; TEMP 98.6
--- NOTE | 2020-02-02 09:45 | NUR ---
Pt awake and alert, returned from dialysis this morning, reported 3000ml removed at dailysis, shift assessments complete, left Pt call light in reach, bed in lowest position.
[2020-02-02 12:14] VITALS: BP 110/64; PULSE 60; TEMP 97.7
[2020-02-02 16:10] VITALS: BP 146/51; PULSE 67; TEMP 98.1
--- NOTE | 2020-02-02 18:27 | NUR ---
Pt resting in the bed today, has had C/O pain during the day, medications wetre given for relief, VS have remained stable.
--- NOTE | 2020-02-02 18:45 | NUR ---
PT report received from Constantino TIPTON at PT's bedside. PT is resting in bed with eyes open and watching tv with call light at her side and the bedside table at the bedside with her cell phone. PT has a 1500 Fluid Restriction noted. PT is A&Ox4 and is able to reposition herself in bed. PT is noted to have a right below knee amputation, a dialysis catheter in her right upper chest secured with a clean, dry and intact guaze dressing. Will continue to monitor.
[2020-02-02 19:40] VITALS: BP 107/55; PULSE 65; TEMP 98.3
--- NOTE | 2020-02-02 19:45 | NUR ---
PT notifies this copywriter that she would like to have her narcotic pain medication. Education provided that it is too early to provide either her IV dilaudid or her PO Percocet. Further education provided on when next doses are available and the frequency ordered. PT states understanding and replies "when did that change?" in regards to Dilaudid IV Q4H. This copywriter reviews orders and educated PT on the time that the Dilaudid orders changed. PT states understanding. Call light within reach. No s/s of distress noted. Will continue to monitor.
--- NOTE | 2020-02-02 22:00 | NUR ---
PT is noted to have s/s of a slightly boggy left heel that this travel writer provided education about and offloaded the heel via floating the heel with pillows. Will continue to monitor.
[2020-02-03 01:08] VITALS: BP 126/56; PULSE 69; TEMP 98.8
--- NOTE | 2020-02-03 04:12 | NUR ---
PT has requested her PRN pain medication consistently throughout the shift and has not rated her pain less than 6/10. PT is resting in bed with no s/s of distress noted. PT has spent the shift watching TV, communicating on her cell phone, and periodically resting with her eyes closed. Call light within reach. PT has requested 1 cup of coffee and has also had one glass of water during the shift. Will continue to monitor.
[2020-02-03 04:28] VITALS: BP 125/62; PULSE 65; TEMP 98.7
--- NOTE | 2020-02-03 07:01 | NUR ---
PT report given to Karis TIPTON. PT in bed awake with c/o pain. PT is upset secondary to not being able to get her Dilaudid prior to the ordered time that it is due. PT refused to have her accu-check performed until she receives her Dilaudid even though she has had 1 and a half doses of percocet 7.5mg in the last hour (orders state that if pain persists PT may have 1/2 tab in 45 minutes). PT consistently rates pain as 8/10 even after pain medication has been provided to her. PT has been requesting her Dilaudid prior to the ordered times thorughout the night- and when not available alternating with her Percocet. Pt frequently has been asking why the Dr changed the frequency to Q4H to which this newswriter replies that she would need to discuss this with the Physcian. This morning Pt has been wanting her Dilaudid at the three hour alec secondary to daylight saving time setting the clocks forward an hour. During the shift PT made a joke about "where is the crack?" and upon discussing the comment with her this newswriter ascertained that PT was referring to crack cocaine. PT denies that she uses cocaine but does make a comment that she has used Methamphetamines.
[2020-02-03 07:14] VITALS: BP 133/60; PULSE 62; TEMP 97.9
[2020-02-03 11:38] VITALS: BP 146/54; PULSE 61; TEMP 97.8
--- NOTE | 2020-02-03 11:44 | NUR ---
Faxed medical updates to [facility] including facesheet, medications, nursing and progress notes.
[2020-02-03] MEDS ORDERED: LASIX 80MG TABL80 MG PO (13:52)
[2020-02-03] MEDS ORDERED: Remove Patch TD (13:56)
[2020-02-03] MEDS ORDERED: NORCO 325 MG-51 TAB PO (13:59)
--- NOTE | 2020-02-03 14:31 | NUR ---
nuclear worker technician contacted [facility] and set up patient's discharge transportation for 14:30 this day via [facility]. Patient will return to her skilled nursing care room 119. nuclear worker technician updated patient's nurse Karis on discharge plan and faxed discharge paperwork including facesheet, orders, and medications to [phone].
--- NOTE | 2020-02-03 15:10 | NUR ---
Pt discharged this afternoon to isabel IV to RFA dc'd catheter tip intact. PRN pain medication given prior to discharging per patients request, unwilling to take IV out prior to receiving pain medications.
--- NOTE | 2020-02-05 10:56 | NUR ---
Ashlee (APS worker) contacted this social service worker and advised she is attempting to find patient. Worker advised that patient was discharged back to [facility] on 02/03/2020.
== END 2020-02-03 15:14 | DRG 202 ==
LOC: COL.ER 10:54 → MEDICAL 13:27
PROVIDERS: Emergency Medicine; ADMIT Internal Medicine Nephrology
PROC: 0JH63XZ Insertion of Tunneled Vascular Access Device into Chest Subcutaneous Tissue and Fascia, Percutaneous Approach (ICD-10-PCS; principal; 2020-02-01)
PROC: 02H633Z Insertion of Infusion Device into Right Atrium, Percutaneous Approach (ICD-10-PCS; 2020-02-01)
DX: J20.8 Acute bronchitis due to other specified organisms (principal); N18.6 End stage renal disease; N17.9 Acute kidney failure, unspecified; I12.0 Hypertensive chronic kidney disease with stage 5 chronic kidney disease or end stage renal disease; T82.7XXA Infection and inflammatory reaction due to other cardiac and vascular devices, implants and grafts, initial encounter; E11.22 Type 2 diabetes mellitus with diabetic chronic kidney disease; H40.9 Unspecified glaucoma; F32.9 Major depressive disorder, single episode, unspecified; E66.9 Obesity, unspecified; B97.29 Other coronavirus as the cause of diseases classified elsewhere; J44.9 Chronic obstructive pulmonary disease, unspecified; Z86.73 Personal history of transient ischemic attack (TIA), and cerebral infarction without residual deficits; Y84.8 Other medical procedures as the cause of abnormal reaction of the patient, or of later complication, without mention of misadventure at the time of the procedure
CPT/HCPCS: A4216; C1769; C1892; J0696; J1170; J1200; J1644; J1815; J2250; J2543; J3010; J3370; J7030; J7040; J7050; Q5105

== ENCOUNTER → 2020-03-13 | Outpatient (CLI) | payer MEDICAID ==
[~2020-03-13] MED LIST changes: +NORCO 325 MG-51 TAB PO; +Remove Patch TD; +TAMIFLU30 MG PO
[2020-03-13 21:51] LABS: COLLECTION METHOD CATHETER
[2020-03-13 22:13] LABS: PH 5 (5-8); URINE APPEARANCE Cloudy; URINE BACTERIA Moderate /hpf; URINE BILIRUBIN Negative (NEGATIVE); URINE BLOOD 1+ (NEGATIVE); URINE COLOR Yellow; URINE GLUCOSE 1+ (NEGATIVE); URINE KETONE Negative (NEGATIVE); URINE LEUKOCYTE ESTERASE 3+ (NEGATIVE); URINE NITRATE Negative (NEGATIVE); URINE PROTEIN(semi-quant) 2+ (NEGATIVE); URINE RBC 20-50 /hpf; URINE UROBILINOGEN Negative (NEGATIVE); URINE WBC >50 /hpf
== END ==
LOC: ZCOL.LAB 18:43
PROVIDERS: Family Medicine
DX: N39.0 Urinary tract infection, site not specified (principal)

== ENCOUNTER → 2020-03-18 | Outpatient (CLI) | payer MEDICAID | LOC: ZCOL.LAB 17:39 | DX: Z11.59 Encounter for screening for other viral diseases (principal); N18.6 End stage renal disease ==

== ENCOUNTER 2020-04-03 07:04 | Day surgery (SDC) | payer MEDICAID ==
[2005-11-23 01:26] VITALS: BP 133/56
[~2020-04-03] VITALS: Ht 167.6 cm; Wt 150.0 kg
[2020-04-03 08:06] VITALS: BP 149/68; PULSE 65; TEMP 98
[2020-04-03] MEDS ORDERED: PHOSLO667 MG PO (08:23)
[2020-04-03] MEDS ORDERED: COREG 6.256.25 MG/TA (08:24)
[2020-04-03] MEDS ORDERED: FLEXERIL 1010 MG/TAB PO (08:25)
[2020-04-03 08:28] LABS: CALCIUM 8.7 mg/dL (8.4-10.2); CREATININE, serum 5.15 (0.52-1.25); POTASSIUM 4.4 mmol/L (3.4-5.0)
[2020-04-03] MEDS ORDERED: LASIX 80MG TABL80 MG PO (08:30)
[2020-04-03] MEDS ORDERED: LEXAPRO20 MG PO (08:32)
[2020-04-03] MEDS ORDERED: NORVASC 5MG5 MG/TAB PO (08:33)
[2020-04-03] MEDS ORDERED: OPCON-A 0.027%-15 M1 OP (08:35)
[2020-04-03] MEDS ORDERED: REFRESH TEARS 330 ML OP (08:35)
[2020-04-03] MEDS ORDERED: SYNTHROID0.1 MG/TAB PO (08:36)
[2020-04-03] MEDS ORDERED: XALATAN EYE DROPS OD (08:37)
[2020-04-03 11:10] VITALS: BP 119/89; PULSE 67; TEMP 97.3
--- NOTE | 2020-04-03 11:10 | NUR ---
TO RM 1 PER CART FROM OR. DROWSY, BUT ORIENTED X3, TALKING TO STAFF. SWIFET SET OVER NEW FISTULA SITE R FOREAR/WRIST. DRESSING OVER DIALYSIS CATETER SPOT OF BLOOD SIZE OF DIME. IV SITE L SIDE OF NECK CLEAN DRY INTACT. DENIES PAIN OR DISCOMFORT. PATIENT C/O IV IN NECK BEING IRRITATING.
[2020-04-03 11:25] VITALS: BP 159/92; PULSE 68
--- NOTE | 2020-04-03 11:25 | NUR ---
PATIENT TALKING ON CELL PHONE WITH DAUGHTER. 02 SAT DROPPING 90% WITH CONVERSATION. AFTER CONVERSATION SATS 98-99%. RECEIVED COFFEE AND ICE CHIPS PER PATIENT REQUEST.
[2020-04-03 11:40] VITALS: BP 175/88; PULSE 68
--- NOTE | 2020-04-03 11:40 | NUR ---
PATIENT STATED NOW SHE IS ON THE PHONE WITH ANOTHER DAUGHTER. SPILLED 1/2 COFFEE AND RECEIVED NEW CUP.
[2020-04-03 11:55] VITALS: BP 178/80; PULSE 67
--- NOTE | 2020-04-03 11:55 | NUR ---
PATIENT STATED SHE NEEDED TO GO TO DIALYSIS. I ATTEMPTED TO CALL DIALYSIS AND LEFT A MESSAGE. I CALLED JOHANA AND INFORMED OF HER REQUEST FOR DIALYSIS. PATIENT STATED SHE HAS NOT HAD DIALYSIS SINCE TUESDAY. OFFERED PATIENT SOMETHING TO EAT AND SHE REFUSED.
[2020-04-03 12:10] VITALS: BP 158/57; PULSE 68
--- NOTE | 2020-04-03 12:25 | NUR ---
DISCONTINUED IV IN LEFT JUGULAR. HELD DIRECT PRESSURE FOR 5 MIN AND THEN A BANDAIDE PLACED. REPORT CALLED TO NURSING STAFF GABY AND CALLED FOR RIDE BACK TO [facility].
--- NOTE | 2020-04-03 12:40 | NUR ---
RECEIVED DISCHARGE INSTRUCTIONS AND VERBALIZED UNDERSTANDING. ASSISTED PATIENT DRESSED. PATIENT ABLE TO TRANSFER SELF BACK TO OWN WC NURSE PULLED UP PANTS. RECEIVED ALL HER JEWELRY BACK, PACKET OF INSTRUCTIONS. JOHANA CALLED FOR RIDE BACK TO SKILLED NURSING.
--- NOTE | 2020-04-03 13:10 | NUR ---
DISCHARGED PER BY NURSING STAFF TO [facility] IN CARE OF [facility] STAFF.
== END 2020-04-03 13:40 | disposition home or self-care (01) ==
LOC: SDCO 07:04
PROVIDERS: Surgery
DX: E11.22 Type 2 diabetes mellitus with diabetic chronic kidney disease (principal); I12.0 Hypertensive chronic kidney disease with stage 5 chronic kidney disease or end stage renal disease; N18.6 End stage renal disease; T85.691A Other mechanical complication of intraperitoneal dialysis catheter, initial encounter; I49.3 Ventricular premature depolarization; E66.01 Morbid (severe) obesity due to excess calories; F17.210 Nicotine dependence, cigarettes, uncomplicated; Z89.512 Acquired absence of left leg below knee; Z99.2 Dependence on renal dialysis; Z79.4 Long term (current) use of insulin; Z79.899 Other long term (current) drug therapy; Z88.2 Allergy status to sulfonamides; Z88.1 Allergy status to other antibiotic agents; Z89.441 Acquired absence of right ankle
CPT/HCPCS: J0690; J1644; J2250; J2704; J3010; J7030

== ENCOUNTER 2020-04-16 12:26 | Inpatient (IN) | payer MEDICAID ==
[~2020-04-16] VITALS: Ht 167.6 cm; Wt 148.2 kg
[~2020-04-16 12:26] MED LIST changes: +COREG 6.256.25 MG/TA; +FLEXERIL 1010 MG/TAB PO; +OPCON-A 0.027%-15 M1 OP; +REFRESH TEARS 330 ML OP; +SYNTHROID0.1 MG/TAB PO; +XALATAN EYE DROPS OD
[2020-04-16 12:38] VITALS: BP 142/58; PULSE 64; TEMP 98.8
--- NOTE | 2020-04-16 13:02 | NUR ---
Patient to room via personal wheelchair by this nurse. Transfers with assist of two to the bed. Has hidradenitis suppurativa in armpits and groin area. Had a stage 2 pressure ulcer to sacral area that scabbed over and the scab fell off a couple days ago. Area at this time just has dry skin. Patient has some pain when lying on that area. Patient has generalized body edema. Denies pain. Oriented to room.
[2020-04-16] MEDS ORDERED: PHOS LO PO (13:27)
[2020-04-16] MEDS ORDERED: LEXAPRO 10MG10 MG PO (13:33)
--- NOTE | 2020-04-16 13:56 | NUR ---
Patient at dialysis via bed at this time.
[2020-04-16 14:28] LABS: BASO % 0.4 % (0.0-2.0); EOS # 0.5 (0.0-0.7); EOS % 4.3 % (0-4.0); GRAN # 6.5 (1.4-6.5); GRAN % 62.1 % (42.2-75.2); HEMATOCRIT 31.5 % (37.0-47.0); HEMOGLOBIN 9.9 g/dl (12.5-16.0); LYMPH # 2.6 (1.2-3.4); LYMPH % 24.6 % (20.0-51.0); MEAN CELL VOLUME 98 fl (80.0-100.0); MEAN CORPUSCULAR HEMOGLOBIN 31 pg (27.0-31.0); MEAN CORPUSCULAR HGB CONC 31 g/dl (33.0-37.0); MEAN PLATELET VOLUME 11.9 fl (7.4-10.4); MONO # 0.8 (0.1-0.6); MONO % 7.5 % (1.7-9.3); PLATELET COUNT 144 K/mm3 (130-400); RED BLOOD COUNT 3.22 M/mm3 (4.10-5.30); REDCELL DISTRIBUTION WIDTH-CV 13.6 % (11.5-14.5)
[2020-04-16 14:39] LABS: ALBUMIN 3.7 gm/dL (3.5-5.0); BILIRUBIN,TOTAL 0.3 mg/dL (0.0-1.0); CALCIUM 8.6 mg/dL (8.4-10.2); CREATININE, serum 3.97 (0.52-1.25); POTASSIUM 4.4 mmol/L (3.4-5.0); TOTAL PROTEIN 7.3 gm/dL (6.4-8.2)
--- NOTE | 2020-04-16 17:25 | NUR ---
Patient back to room from dialysis via wheelchair. Patient request snack as she has not eaten all day today. Provided Cheerios per patient request. Patient denies further needs at this time.
--- NOTE | 2020-04-16 18:03 | NUR ---
Sitting up in bed with eyes open watching TV. Patient denies needs at this time.
--- NOTE | 2020-04-16 18:34 | NUR ---
Sitting up in bed eating dinner. Denies needs at this time.
--- NOTE | 2020-04-16 20:00 | NUR ---
Received report from DANUTA Beauchamp. Alert and oriented. Denies any pain at this time. Meds adminsitered as ordered. Rt upper chest HD cath intact, no complications observed, dressing CDI. RFA fistula with positive bruit and thrill, wrapped in bandage. Needs met at this time. call light within reach.
[2020-04-16 20:15] VITALS: BP 132/32; PULSE 75; TEMP 98.7
[2020-04-16 23:43] VITALS: BP 140/34; PULSE 78; TEMP 98.8
[2020-04-17 04:25] VITALS: BP 122/37; PULSE 66; TEMP 97.8
--- NOTE | 2020-04-17 07:38 | NUR ---
Report given to DANUTA Warren.
[2020-04-17 08:00] VITALS: BP 135/53; PULSE 64; TEMP 98
--- NOTE | 2020-04-17 08:12 | NUR ---
PT IN POOR MOOD, GOT PT A BARIATRIC GOWN REQUESTED, GOT HER DIET SPRITE REQUESTED. BED IN LOW POSITION, ATE 100 OF BREAKFAST, DENIES PAIN OR DISCOMFORT, TOOK MEDS, ASSESSMENT PERFORMED, TAKEN TO DIALYSIS VIA WHEELCHAIR.
[2020-04-17 08:52] LABS: HEMOGLOBIN 10.4 g/dl (12.5-16.0); MEAN CELL VOLUME 99 fl (80.0-100.0); MEAN CORPUSCULAR HEMOGLOBIN 31 pg (27.0-31.0); MEAN CORPUSCULAR HGB CONC 32 g/dl (33.0-37.0); MEAN PLATELET VOLUME 11.5 fl (7.4-10.4); PLATELET COUNT 147 K/mm3 (130-400); RED BLOOD COUNT 3.33 M/mm3 (4.10-5.30); REDCELL DISTRIBUTION WIDTH-CV 13.8 % (11.5-14.5)
[2020-04-17 09:02] LABS: ALBUMIN 3.8 gm/dL (3.5-5.0); CALCIUM 8.7 mg/dL (8.4-10.2); CREATININE, serum 3.95 (0.52-1.25); PHOSPHOROUS 5.8 mg/dL (2.5-4.5); POTASSIUM 5.3 mmol/L (3.4-5.0)
[2020-04-17 09:21] LABS: HEMATOCRIT 32.8 % (37.0-47.0)
[2020-04-17 09:30] LABS: BAND 2 % (0-10); EOSINOPHIL 2 % (0-4); LYMPHOCYTE 28 % (20.0-51.0); METAMYELOCYTE 1 % (0-0); NEUTROPHILS 61 % (42.0-75.2); NUCLEATED RED BLOOD CELL 1 (0-6); PLATELET ESTIMATE NORMAL (NORMAL)
--- NOTE | 2020-04-17 10:36 | NUR ---
PT REFUSES TO WEAR SCD'S
[2020-04-17 15:57] VITALS: BP 126/73; PULSE 74; TEMP 97.8
--- NOTE | 2020-04-17 16:26 | NUR ---
Diesel Power Shovel Operator met with patient to discuss discharge planning. Patient lives at [facility] and Dr. Dupont is her primary care physician. Patient utilizes a wheelchair most of the time and reports she is mostly independent with transfers. Patient states staff at [facility] can assist her as needed with ADLS and transfers. Patient lists her father, Froilan as an emergency contact (ph#[phone]). Patient has four children Sherin, Iliana, Erica, and Bogdan. Patient reports Bogdan lives in [place]. Patient does not have Advance Directives completed. Patient plans to return to [facility] upon discharge. SW faxed referral to Amarjit at [facility] and will continue to follow.
--- NOTE | 2020-04-17 18:16 | NUR ---
UNEVENTFUL SHIFT. POSSIBLE DIALYSIS TOMORROW. 3900 OUT FROM DIALYSIS TODAY. BED IN LOWEST POSITION, CALL LIGHT AT BEDSIDE. DENIES PAIN OR DISCOMFORT, NO OTHER NEEDS AT THIS TIME.
--- NOTE | 2020-04-17 18:55 | NUR ---
REPORT GIVEN TO MALLY TIPTON
[2020-04-17 19:17] VITALS: BP 115/64; PULSE 74; TEMP 98.6
--- NOTE | 2020-04-17 21:15 | NUR ---
Assessment complete. Resting in bed, watching televison. Conversant, pleasant. RBKA. RFA new fistula, edges well approximated, scant amout of serous drng. Denies pain, denies needs at this time.
[2020-04-17 23:33] VITALS: BP 147/69; PULSE 71; TEMP 97.1
[2020-04-18 03:34] VITALS: BP 118/40; PULSE 74; TEMP 99.4
[2020-04-18 09:35] LABS: HEMOGLOBIN 10.2 g/dl (12.5-16.0); MEAN CELL VOLUME 97 fl (80.0-100.0); MEAN CORPUSCULAR HEMOGLOBIN 30 pg (27.0-31.0); MEAN CORPUSCULAR HGB CONC 31 g/dl (33.0-37.0); MEAN PLATELET VOLUME 12.2 fl (7.4-10.4); PLATELET COUNT 147 K/mm3 (130-400); RED BLOOD COUNT 3.36 M/mm3 (4.10-5.30); REDCELL DISTRIBUTION WIDTH-CV 13.8 % (11.5-14.5)
[2020-04-18 09:43] LABS: HEMATOCRIT 32.7 % (37.0-47.0)
[2020-04-18 09:48] LABS: ALBUMIN 3.9 gm/dL (3.5-5.0); CALCIUM 8.9 mg/dL (8.4-10.2); CREATININE, serum 3.82 (0.52-1.25); POTASSIUM 5.2 mmol/L (3.4-5.0)
[2020-04-18 10:14] LABS: BAND 4 % (0-10); EOSINOPHIL 2 % (0-4); LYMPHOCYTE 28 % (20.0-51.0); NEUTROPHILS 62 % (42.0-75.2); PLATELET ESTIMATE NORMAL (NORMAL)
[2020-04-18 11:35] VITALS: BP 127/55; PULSE 82; TEMP 98.8
--- NOTE | 2020-04-18 16:11 | NUR ---
Evaporator Operator spoke to RNCarito and Dr. Crockett about ordering COVID test per [facility] requirement. SW contacted Amarjit at [facility] and faxed updates. SW to continue to follow.
[2020-04-18 16:16] VITALS: BP 131/48; PULSE 72; TEMP 99.1
[2020-04-18 19:56] VITALS: BP 127/61; PULSE 74; TEMP 98.8
--- NOTE | 2020-04-18 20:00 | NUR ---
At time of assessment, patient is awake watching TV. She is alert and oriented, heart sounds regular/normal, lungs clear/diminished, no edema present. Patient does not complain of pain at this time. R chest dialysis catheter dressing CDI and fistula has bruit and thrill present. Fistula sight is mildy reddened, which patient states doctor is aware of. No new concerns at this time.
--- NOTE | 2020-04-18 20:36 | NUR ---
PT HAD UNEVENTFUL DAY. PT DID HAVE DIALYSIS TODAY, AND SHE IS BACK TO DRY WEIGHT. PT IS PENDING COVID FOR RETURNING TO [facility] SOON IT'S NEGATIVE. REPORT GIVEN TO DANUTA MORGAN
[2020-04-18 23:32] VITALS: BP 126/93; PULSE 84; TEMP 98.4
[2020-04-19 03:30] VITALS: BP 161/62; PULSE 82; TEMP 98.6
[2020-04-19 08:18] VITALS: BP 118/49; PULSE 72; TEMP 98.9
[2020-04-19 12:24] VITALS: BP 142/48; PULSE 73; TEMP 98.7
--- NOTE | 2020-04-19 12:34 | NUR ---
Patient is alert and oriented. denies any pain. multiple open wound on bilateral hand. patient said the wound is from his job injury. blood clot found on the orifice of the penis, pt state it is from yesterday catherer removal and replacement. call light with patient.
[2020-04-19 16:12] VITALS: BP 145/57; PULSE 76; TEMP 98.9
--- NOTE | 2020-04-19 16:32 | NUR ---
Jigna spoke to charge nurse about possible D/C tomorrow. JIGNA contacted aleksander at [facility] to inform her of possible discharge. JIGNA faxed over updates. COVID test results still pending. Jigna will fax over D/C papers when received and arrange for transport.
--- NOTE | 2020-04-19 19:33 | NUR ---
patient is alert and oriented. denies any pain. patient refuse blood draw and physical therapy.
[2020-04-19 19:51] VITALS: BP 146/46; PULSE 78; TEMP 98.9
[2020-04-19 23:35] VITALS: BP 137/48; PULSE 77; TEMP 98.3
--- NOTE | 2020-04-20 02:53 | NUR ---
RESTING QUIETLY. NO N/V. PT DENIES PAIN. COMPLIANT WITH CARE. NO SIGNS/SYMPTOMS OF HYPO/HYPERGLYCEMIA.
[2020-04-20 03:42] VITALS: BP 125/56; PULSE 72; TEMP 98.1
--- NOTE | 2020-04-20 08:10 | NUR ---
Assessment complete. Pt sitting up in bed, A&O x 4. Physical assessment unremarkable. Pt denies pain at this time. Dialysis catheter to right chest without s/s of complications. AV Fistula to right forearm with strong thrill. No further needs reported. Call light in reach.
[2020-04-20 08:13] VITALS: BP 146/59; PULSE 75; TEMP 98.6
[2020-04-20] MEDS ORDERED: COREG 3.123.125 MG/T PO (10:41)
--- NOTE | 2020-04-20 12:21 | NUR ---
Patient is slotted to DC. JOSEPH faxed DC orders to [place], non-skilled orders. supervisor machine workers for transport is scheduled for 2:30 p.m. Covid screen negative attached to DC. Nothing follows.
[2020-04-20 13:15] VITALS: BP 137/50; PULSE 74; TEMP 98.8
--- NOTE | 2020-04-20 14:19 | NUR ---
Report called to STEPHEN Whipple at [facility].
--- NOTE | 2020-04-20 15:00 | NUR ---
Pt discharged back to [facility], escorted out of facility via WC accompanied by OG. Discharge paperwork sent with pt.
== END 2020-04-20 15:00 | DRG 640 ==
LOC: MEDICAL 12:26
PROVIDERS: Nurse Practitioner; ADMIT Internal Medicine Nephrology
PROC: 5A1D70Z Performance of Urinary Filtration, Intermittent, Less than 6 Hours Per Day (ICD-10-PCS; principal; 2020-04-16)
DX: E87.70 Fluid overload, unspecified (principal); N18.6 End stage renal disease; I13.2 Hypertensive heart and chronic kidney disease with heart failure and with stage 5 chronic kidney disease, or end stage renal disease; E11.22 Type 2 diabetes mellitus with diabetic chronic kidney disease; D63.1 Anemia in chronic kidney disease; E83.39 Other disorders of phosphorus metabolism; Z20.828 Contact with and (suspected) exposure to other viral communicable diseases; E66.9 Obesity, unspecified; F32.9 Major depressive disorder, single episode, unspecified; J44.9 Chronic obstructive pulmonary disease, unspecified; H40.9 Unspecified glaucoma; F17.210 Nicotine dependence, cigarettes, uncomplicated; I50.9 Heart failure, unspecified; Z86.73 Personal history of transient ischemic attack (TIA), and cerebral infarction without residual deficits; Z79.4 Long term (current) use of insulin
CPT/HCPCS: J1644; J1815; J2916; J7030; Q5105

== ENCOUNTER 2020-05-28 10:38 | Inpatient (IN) | payer MEDICAID ==
[~2020-05-28] VITALS: Ht 167.6 cm; Wt 148.2 kg
[~2020-05-28 10:38] MED LIST changes: +COREG 3.123.125 MG/T PO; +LEXAPRO 10MG10 MG PO; +PHOS LO PO
--- NOTE | 2020-05-28 11:20 | NUR ---
Pt admitted to medical unit rm 315, direct from [facility]. Pt A&O x 3, reports pain to shoulders. Fistula to right forearm with strong thrill, swollen. HD cath to right chest with reddened skin superior to insertion site, blistered, pt reports itching. No further needs reported. Call light in reach.
[2020-05-28 11:38] VITALS: BP 131/47; PULSE 81; TEMP 98.5
--- NOTE | 2020-05-28 12:41 | NUR ---
Pt to dialysis down the alexandra via WC.
[2020-05-28] MEDS ORDERED: NORCO 325 MG-51 TAB PO (13:46)
[2020-05-28] MEDS ORDERED: RT ADVAIR 228 DISKUS IH (13:46)
[2020-05-28] MEDS ORDERED: PREDFORTE10ML OD (13:47)
[2020-05-28 13:57] LABS: BASO % 0.4 % (0.0-2.0); EOS # 0.3 (0.0-0.7); EOS % 2.7 % (0-4.0); GRAN # 7.1 (1.4-6.5); GRAN % 61.8 % (42.2-75.2); HEMOGLOBIN 10.1 g/dl (12.5-16.0); LYMPH # 2.6 (1.2-3.4); LYMPH % 22.8 % (20.0-51.0); MEAN CELL VOLUME 97 fl (80.0-100.0); MEAN CORPUSCULAR HEMOGLOBIN 31 pg (27.0-31.0); MEAN CORPUSCULAR HGB CONC 32 g/dl (33.0-37.0); MEAN PLATELET VOLUME 11.5 fl (7.4-10.4); MONO # 1.3 (0.1-0.6); PLATELET COUNT 163 K/mm3 (130-400); RED BLOOD COUNT 3.23 M/mm3 (4.10-5.30); REDCELL DISTRIBUTION WIDTH-CV 13.8 % (11.5-14.5)
[2020-05-28 14:03] LABS: HEMATOCRIT 31.4 % (37.0-47.0)
[2020-05-28 14:11] LABS: ALBUMIN 3.6 gm/dL (3.5-5.0); BILIRUBIN,TOTAL 0.3 mg/dL (0.0-1.0); CALCIUM 8.7 mg/dL (8.4-10.2); CREATININE, serum 4.15 (0.52-1.25); PHOSPHOROUS 4.3 mg/dL (2.5-4.5); POTASSIUM 4.4 mmol/L (3.4-5.0); TOTAL PROTEIN 7.6 gm/dL (6.4-8.2)
--- NOTE | 2020-05-28 17:30 | NUR ---
Pt back to room via WC following dialysis, transfers to toilet independently then back to bed with assist x 1. No further needs reported. Call light in reach.
[2020-05-28 21:06] VITALS: BP 101/40; PULSE 77; TEMP 99.9
[2020-05-29 00:24] VITALS: BP 110/39; PULSE 77; TEMP 99.4
[2020-05-29 04:29] VITALS: BP 131/42; PULSE 76; TEMP 99.6
--- NOTE | 2020-05-29 04:43 | NUR ---
Pt HAS REPORTED PAIN AT NECK, SHOULDERS, AND GENERALIZED AT START OF SHIFT AND DURING ROUNDS BUT REPEATEDLY STATES THAT SHE DID NOT WANT ANY PAIN MEDS AT THOSE TIMES. Pt HAS REQUESTED HER PRN NORCO DURING THE AGRICULTURIST HOURS OF NOC AND FOLLOW UP PAIN ASSESSMENT IS 05/07 AND Pt REQUESTED MORE PAIN MEDICATIONS. EDUCATION ON PAIN MED ORDERS. Pt STATES UNDERSTANDING. Pt IS A&OX4. Pt WAS REPORTED TO HAVE A RED BUT BLANCHEABLE COCCYX WHICH UPON THIS SECURITIES ADVISER'S ASSESSMENT HAS NOW BECOME A STAGE 2 EVIDENCED BY A SMALL CREVICE IN PT'S SKIN AT COCCYX SURROUNDED BY OFF WHITE TISSUE. CALL LIGHT IS WITHIN REACH. BEVERAGE IS AVAILABLE ON BEDSIDE TABLE WITHIN REACH. EDUCAITON ON IMPORTANCE OF TURNING AND REMAINING OFF BUTTOCKS WHEN IN BED. Pt STATES UNDERSTANDING AND REPLIES THAT SHE DOES TURN (PT IS INDEPENDENET WITH REPOSITIONING AND CAN SELF TRANSFER TO HER WHEELCHAIR TO USE THE RESTROOM) BUT THE PROBLEMS "COME FROM DIALYSIS DUE TO NOT BEING ABLE TO" REPOSITION OFF OF HER BUTTOCKS AT THAT TIME. THIS SECURITIES ADVISER WILL PUT IN AN ORDER FOR DIRECTOR REGULATORY AFFAIRS TO LOOK INTO OBTAINING Pt ORDERS FOR A ROHO CUSHION TO HELP RELIEVE PRESSURE. WILL CONTINUE TO MONITOR.
--- NOTE | 2020-05-29 06:28 | NUR ---
Pt RESTING IN BED PEACEFULLY WITH EYES CLOSED AND NO S/S OF DISTRESS AT THIS TIME. Pt EDUCATED AT [address] HAMILTON DECLINING TO PROVIDE ANY ADDITIONAL NARCOTIC PAIN MEDICATION AT THIS TIME SECONDARY TO DIALYSIS PENDING. CALL LIGHT WITHIN REACH. BEVERAGE WITHIN REACH. WILL CONTINUE TO MONITOR.
[2020-05-29 07:46] VITALS: BP 110/34; PULSE 70; TEMP 98.3
[2020-05-29 09:26] LABS: HEMATOCRIT 31.8 % (37.0-47.0); HEMOGLOBIN 9.9 g/dl (12.5-16.0); MEAN CELL VOLUME 99 fl (80.0-100.0); MEAN CORPUSCULAR HEMOGLOBIN 31 pg (27.0-31.0); MEAN CORPUSCULAR HGB CONC 31 g/dl (33.0-37.0); MEAN PLATELET VOLUME 11.5 fl (7.4-10.4); PLATELET COUNT 159 K/mm3 (130-400); RED BLOOD COUNT 3.23 M/mm3 (4.10-5.30); REDCELL DISTRIBUTION WIDTH-CV 13.8 % (11.5-14.5)
[2020-05-29 09:34] LABS: ALBUMIN 3.7 gm/dL (3.5-5.0); CALCIUM 8.8 mg/dL (8.4-10.2); CREATININE, serum 4.27 (0.52-1.25); PHOSPHOROUS 5.3 mg/dL (2.5-4.5); POTASSIUM 4.7 mmol/L (3.4-5.0)
[2020-05-29 10:07] LABS: BAND 1 % (0-10); EOSINOPHIL 4 % (0-4); LYMPHOCYTE 25 % (20.0-51.0); METAMYELOCYTE 2 % (0-0); NEUTROPHILS 58 % (42.0-75.2)
[2020-05-29 10:08] LABS: PLATELET ESTIMATE NORMAL (NORMAL)
--- NOTE | 2020-05-29 15:46 | NUR ---
Lead Software Qa Engineer met with patient to discuss discharge planning. Patient lives at [facility] in half-way care and sees Dr. Dupont for primary care. Patient states staff at [facility] administer her medications to her except for one. Patient needs some assistance with ADLS that she receives from staff at [facility]. Patient does not have Advance Directives and is not interested in establishing DPOA-HC at this time. Patient lists her father, Froilan (ph#[phone]) as her emergency contact. Patient states she plans to return to [facility] at discharge. JOSEPH contacted Amarjit at [facility] and faxed updates. JOSEPH advised Amarjit that patient is interested in obtaining a new wheelchair. Amarjit will email patient's vocational childcare teacher from [facility] to look into this for patient. Amarjit advised nursing staff will review clinical updates. Amarjit advised patient has been non compliant with her diet and has refused dialysis a few times. JOSEPH will continue to follow.
[2020-05-29 16:26] VITALS: BP 101/48; PULSE 76; TEMP 97.7
[2020-05-29 19:16] VITALS: BP 116/45; PULSE 71; TEMP 98.6
--- NOTE | 2020-05-29 19:43 | NUR ---
REPORT GIVEN TO ONCOMING SHIFT.
--- NOTE | 2020-05-29 22:00 | NUR ---
Pt assessment completed and documented. Pt alert and oriented x4. Pt states she is having 6/10 generalized pain. Dialysis cath to right chest free of complications. Swelling noted to RUE fistula and right hand. Pt denies any other needs at this time. Call light within reach. Will continue to monitor.
[2020-05-30 00:31] VITALS: BP 114/44; PULSE 71; TEMP 98.7
[2020-05-30 04:13] VITALS: BP 107/34; PULSE 76; TEMP 98.7
--- NOTE | 2020-05-30 05:25 | NUR ---
Pt had uneventful shift. Pt awake on and off throughout the night. Complaints of generalized pain throughout the night. PRN norco given per orders. Swelling noted to RUE fistula site. Right chest dialysis cath without complications. Pt denies any other needs at this time. Call light within reach. Will continue to monitor.
--- NOTE | 2020-05-30 06:50 | NUR ---
Report given to DANUTA Degroot
[2020-05-30 07:47] VITALS: BP 145/71; PULSE 72
--- NOTE | 2020-05-30 07:49 | NUR ---
SEE MERGE DOCUMENTATION FOR MEDICATION ADMINISTRATION TIMES AND INTRA/POST PROCEDURE SEDATION ASSESSMENTS.
[2020-05-30 13:00] LABS: BASO % 0.3 % (0.0-2.0); EOS # 0.4 (0.0-0.7); EOS % 3.8 % (0-4.0); GRAN # 6.4 (1.4-6.5); GRAN % 66.2 % (42.2-75.2); LYMPH # 1.8 (1.2-3.4); LYMPH % 18.7 % (20.0-51.0); MEAN CELL VOLUME 98 fl (80.0-100.0); MEAN CORPUSCULAR HEMOGLOBIN 31 pg (27.0-31.0); MEAN CORPUSCULAR HGB CONC 32 g/dl (33.0-37.0); MEAN PLATELET VOLUME 11.5 fl (7.4-10.4); MONO # 0.9 (0.1-0.6); MONO % 9.7 % (1.7-9.3); PLATELET COUNT 174 K/mm3 (130-400); RED BLOOD COUNT 3.22 M/mm3 (4.10-5.30); REDCELL DISTRIBUTION WIDTH-CV 13.8 % (11.5-14.5)
[2020-05-30 13:01] LABS: HEMATOCRIT 31.6 % (37.0-47.0)
[2020-05-30 13:11] LABS: ALBUMIN 3.8 gm/dL (3.5-5.0); CALCIUM 9.2 mg/dL (8.4-10.2); CREATININE, serum 4.87 (0.52-1.25); PHOSPHOROUS 5.1 mg/dL (2.5-4.5); POTASSIUM 5.1 mmol/L (3.4-5.0)
--- NOTE | 2020-05-30 15:16 | NUR ---
Healthcare Administration Intern faxed updates to Amarjit at [facility]. JOSEPH spoke with Amarjit who advised they can accept patient back at discharge. JOSEPH will continue to follow.
[2020-05-30 16:19] VITALS: BP 110/77; PULSE 87
--- NOTE | 2020-05-30 18:48 | NUR ---
Report given to oncoming shift.
[2020-05-30 20:54] VITALS: BP 131/43; PULSE 78; TEMP 99
--- NOTE | 2020-05-30 21:50 | NUR ---
Pt assessment completed and documented. Pt resting in bed at this time with eyes closed. When asking pt if she is having pain, pt states "well I am sleeping, whats up?". Pt alert and oriented x4. Swelling noted to right forearm fistula. Fistula to right forearm with palpable thrill and audible bruit. Pt denies any other needs at this time. Call light within reach. Will continue to monitor.
[2020-05-30 23:24] VITALS: BP 136/72; PULSE 82; TEMP 98.3
[2020-05-31 03:52] VITALS: BP 121/48; PULSE 79; TEMP 98.3
--- NOTE | 2020-05-31 06:03 | NUR ---
Pt had uneventful shift. Pt rested well throughout the night. No complaints of pain thoughout night. Pt denies any needs at this time. Call light within reach. Will continue to monitor.
[2020-05-31 07:13] VITALS: BP 112/43; PULSE 75; TEMP 99.5
--- NOTE | 2020-05-31 07:30 | NUR ---
Report given to DANUTA Irizarry
--- NOTE | 2020-05-31 09:04 | NUR ---
PT IN W/C READY TO GO TO DIALYSIS, A/O X3. PT HAS NO NEEDS AT THIS TIME, CALL LIGHT WITHIN REACH.
[2020-05-31 09:50] LABS: HEMOGLOBIN 10.2 g/dl (12.5-16.0); MEAN CELL VOLUME 98 fl (80.0-100.0); MEAN CORPUSCULAR HEMOGLOBIN 31 pg (27.0-31.0); MEAN CORPUSCULAR HGB CONC 31 g/dl (33.0-37.0); MEAN PLATELET VOLUME 11.5 fl (7.4-10.4); PLATELET COUNT 173 K/mm3 (130-400); RED BLOOD COUNT 3.33 M/mm3 (4.10-5.30)
[2020-05-31 09:55] LABS: HEMATOCRIT 32.7 % (37.0-47.0)
[2020-05-31 10:00] LABS: CALCIUM 8.9 mg/dL (8.4-10.2); CREATININE, serum 4.78 (0.52-1.25); PHOSPHOROUS 5.3 mg/dL (2.5-4.5); POTASSIUM 5.5 mmol/L (3.4-5.0)
--- NOTE | 2020-05-31 10:12 | NUR ---
NOTIFIED DR. HAMILTON IN REFERENCE TO PT'S BLOOD GLUCOSE BEING 425. ALSO, ADVISED OF INSULIN ALREADY GIVEN. DR. HAMILTON GAVE A ONE TIME ORDER FOR 5 UNITS OF NOVOLOG.
[2020-05-31 10:48] LABS: LYMPHOCYTE 30 % (20.0-51.0); NEUTROPHILS 61 % (42.0-75.2); PLATELET ESTIMATE NORMAL (NORMAL)
[2020-05-31 12:24] VITALS: BP 112/43; PULSE 75; TEMP 99.5
--- NOTE | 2020-05-31 12:46 | NUR ---
PT RETURNED TO ROOM FROM DIALYSIS. DIALYSIS NURSE ADVISES THAT 3600mL TAKEN OFF.
--- NOTE | 2020-05-31 15:15 | NUR ---
PT TAKEN DOWN BY BAGGING SALVAGER VIA WHEELCHAIR. PT HAD ALL PERSONAL BELONGINGS WITH HER.
--- NOTE | 2020-05-31 15:36 | NUR ---
JIGNA received word from patients nurse that she was ready to discharge. JIGNA contacted [facility] and spoke with charge nurse Lisa. Lisa approved sampler pickup time to be between 130-200. Lisa did ask about patients dialysis, which had already been done. Jigna faxed discharge paperwork over to [facility], and informed patients nurse of sampler pickup time.
== END 2020-05-31 15:10 | DRG 640 ==
LOC: COL.ER 10:38 → MEDICAL 10:55
PROVIDERS: ADMIT Internal Medicine Nephrology
PROC: 5A1D70Z Performance of Urinary Filtration, Intermittent, Less than 6 Hours Per Day (ICD-10-PCS; principal; 2020-05-29)
DX: E87.70 Fluid overload, unspecified (principal); N18.6 End stage renal disease; I50.22 Chronic systolic (congestive) heart failure; I13.2 Hypertensive heart and chronic kidney disease with heart failure and with stage 5 chronic kidney disease, or end stage renal disease; T82.858A Stenosis of other vascular prosthetic devices, implants and grafts, initial encounter; E11.22 Type 2 diabetes mellitus with diabetic chronic kidney disease; E66.9 Obesity, unspecified; E03.9 Hypothyroidism, unspecified; J44.9 Chronic obstructive pulmonary disease, unspecified; F32.9 Major depressive disorder, single episode, unspecified; F17.210 Nicotine dependence, cigarettes, uncomplicated; D63.1 Anemia in chronic kidney disease; I95.9 Hypotension, unspecified; Z99.2 Dependence on renal dialysis; Z86.73 Personal history of transient ischemic attack (TIA), and cerebral infarction without residual deficits; Z88.2 Allergy status to sulfonamides; Z79.4 Long term (current) use of insulin; Z91.15 Patient's noncompliance with renal dialysis; Z89.511 Acquired absence of right leg below knee
CPT/HCPCS: J1644; J1815; J7030; Q5105; Q9967

== ENCOUNTER 2020-06-03 19:07 | Emergency (ER) | payer MEDICAID ==
[2005-11-23 01:26] VITALS: BP 133/56
[~2020-06-03] VITALS: Ht 167.6 cm; Wt 150.0 kg
[~2020-06-03 19:07] MED LIST changes: +PREDFORTE10ML OD
[2020-06-03 19:49] VITALS: BP 127/57; PULSE 74; TEMP 97.7
== END 2020-06-03 19:55 | disposition home or self-care (01) ==
LOC: COL.ER 19:07
DX: T85.621A Displacement of intraperitoneal dialysis catheter, initial encounter (principal); E11.22 Type 2 diabetes mellitus with diabetic chronic kidney disease; I13.2 Hypertensive heart and chronic kidney disease with heart failure and with stage 5 chronic kidney disease, or end stage renal disease; I50.20 Unspecified systolic (congestive) heart failure; F32.9 Major depressive disorder, single episode, unspecified; D63.1 Anemia in chronic kidney disease; J44.9 Chronic obstructive pulmonary disease, unspecified; Z98.890 Other specified postprocedural states; E03.9 Hypothyroidism, unspecified; Z86.73 Personal history of transient ischemic attack (TIA), and cerebral infarction without residual deficits

== ENCOUNTER 2020-06-04 10:25 | Outpatient (CLI) | payer MEDICAID ==
[2005-11-23 01:26] VITALS: BP 133/56
[~2020-06-04] VITALS: Ht 167.7 cm; Wt 154.5 kg
[2020-06-04] VITALS (8 sets, daily range): BP systolic 145–190; BP diastolic 63–83; PULSE 69–93; TEMP 97.2–98.3
--- NOTE | 2020-06-04 11:34 | NUR ---
SEE MERGE DOCUMENTATION FOR MEDICATION ADMINISTRATION TIMES AND INTRA/POST PROCEDURE SEDATION ASSESSMENTS.
--- NOTE | 2020-06-04 13:20 | NUR ---
Pt to Express unit bay 16 via bed from medical lab assistant. Pt drowsy, but awakens easily to name call. VSS. Dialysis catheter to left IJ is intact, dressing is clean, dry, and intact. Pt wants to sleep. Pt lying in left lateral position. Blankets provided. Will continue to monitor. Call light within reach.
--- NOTE | 2020-06-04 13:50 | NUR ---
Pt continues to sleep. Snourus respirations even and unlabored. Call light within reach.
--- NOTE | 2020-06-04 14:05 | NUR ---
Pt continues to sleep. Respirations even and unlabored. Call light within reach.
--- NOTE | 2020-06-04 14:43 | NUR ---
Pt continues to sleep. Respirations even and unlabored. Call light within reach.
--- NOTE | 2020-06-04 15:35 | NUR ---
Pt awoken for to get ready for discharge. Pt will be going to Dialysis upon discharge. IV site discontinued with all parts intact. Left IJ catheter is intact with dressing clean, dry, and intact. Pt c/o not jennifer able to move her neck due to dressing. Pt found removing part of dressing when up in wheel chair stating "I have to be able to move my neck." Nurse explained to pt the importance of leaving dressing in place. Dressing not removed to point of exposing dialysis catheter. Pt assisted with dressing. Awaiting penitentiary transportation at this time. Discharge instructions reviewed. Pt voices understanding. Call light within reach.
--- NOTE | 2020-06-04 16:07 | NUR ---
Pt escorted to private car via wheel chair. Pt accompanied by [facility] staff,
== END 2020-06-04 16:07 | disposition home or self-care (01) ==
LOC: COL.CAR 10:25
DX: T82.898A Other specified complication of vascular prosthetic devices, implants and grafts, initial encounter (principal); I12.0 Hypertensive chronic kidney disease with stage 5 chronic kidney disease or end stage renal disease; E11.22 Type 2 diabetes mellitus with diabetic chronic kidney disease; N18.6 End stage renal disease; F17.210 Nicotine dependence, cigarettes, uncomplicated; Z90.710 Acquired absence of both cervix and uterus; Z89.511 Acquired absence of right leg below knee; Z88.2 Allergy status to sulfonamides
CPT/HCPCS: C1750; C1769; C1892; J0690; J1200; J1644; J2250; J3010; Q9967

== ENCOUNTER → 2020-07-04 | Outpatient (CLI) | payer MEDICAID ==
[2020-07-04 18:09] LABS: COLLECTION METHOD CLEAN CATCH
[2020-07-04 18:35] LABS: MUCOUS Present /lpf; PH 5 (5-8); SQUAMOUS EPITHELIAL None Seen /hpf; URINE APPEARANCE Turbid; URINE BACTERIA None Seen /hpf; URINE BILIRUBIN Negative (NEGATIVE); URINE BLOOD 2+ (NEGATIVE); URINE COLOR Amber; URINE GLUCOSE 3+ (NEGATIVE); URINE KETONE Negative (NEGATIVE); URINE LEUKOCYTE ESTERASE 2+ (NEGATIVE); URINE NITRATE Negative (NEGATIVE); URINE PROTEIN(semi-quant) 2+ (NEGATIVE); URINE RBC >50 /hpf; URINE UROBILINOGEN Negative (NEGATIVE)
== END ==
LOC: ZCOL.LAB 17:09
PROVIDERS: Family Medicine
DX: N39.0 Urinary tract infection, site not specified (principal)

== ENCOUNTER → 2020-07-24 | Outpatient (CLI) | payer MEDICAID ==
[2020-07-24 23:39] LABS: COLLECTION METHOD CATHETER
[2020-07-24 23:46] LABS: BUDDING YEAST Present /hpf; PH 6 (5-8); URINE APPEARANCE Turbid; URINE BACTERIA None Seen /hpf; URINE BILIRUBIN Negative (NEGATIVE); URINE BLOOD 1+ (NEGATIVE); URINE COLOR Amber; URINE GLUCOSE 3+ (NEGATIVE); URINE KETONE Negative (NEGATIVE); URINE LEUKOCYTE ESTERASE 2+ (NEGATIVE); URINE NITRATE Negative (NEGATIVE); URINE PROTEIN(semi-quant) 3+ (NEGATIVE); URINE UROBILINOGEN Negative (NEGATIVE)
== END ==
LOC: ZCOL.LAB 22:24
PROVIDERS: Family Medicine
DX: Z01.89 Encounter for other specified special examinations (principal)

== ENCOUNTER 2020-07-27 11:29 | Inpatient (IN) | payer MEDICAID ==
[~2020-07-27] VITALS: Ht 167.6 cm; Wt 141.1 kg
[~2020-07-27 11:29] MED LIST changes: +COUMADIN 1MG1 MG/TAB PO
--- NOTE | 2020-07-27 12:16 | NUR ---
PT ARRIVED TO UNIT @1200 VIA OWN WHEELCHAIR. CHIEF COMPLAINT IS MALFUNCTIONING DIALYSIS CATH AND UTI WITH INCONTINENCE. AOX4. DENIES PAIN. MOISTURE BREAKDOWN NOTED TO ALEX GROIN. RT ARM PIT WITH MODERATE CLEAR YELLOW DRAINAGE. WOO ARGUELLES APRN CALLED AND NOTIFIED OF PT ARRIVAL. ONLY NEED A THIS TIME IS LUNCH. REPORTS CHRONIC RAISED SPOTS TO ALEX ARM PITS. HEALED WOUNDS TO BUTTOCKS AND COCCYX
[2020-07-27 12:22] VITALS: BP 148/59; PULSE 69; TEMP 98.7
[2020-07-27 14:04] LABS: BASO % 0.4 % (0.0-2.0); EOS # 0.4 (0.0-0.7); EOS % 5.8 % (0-4.0); GRAN # 4.6 (1.4-6.5); GRAN % 61.1 % (42.2-75.2); HEMOGLOBIN 10.7 g/dl (12.5-16.0); LYMPH # 1.6 (1.2-3.4); LYMPH % 21.8 % (20.0-51.0); MEAN CELL VOLUME 97 fl (80.0-100.0); MEAN CORPUSCULAR HEMOGLOBIN 32 pg (27.0-31.0); MEAN CORPUSCULAR HGB CONC 33 g/dl (33.0-37.0); MEAN PLATELET VOLUME 11.2 fl (7.4-10.4); MONO # 0.8 (0.1-0.6); PLATELET COUNT 184 K/mm3 (130-400); RED BLOOD COUNT 3.39 M/mm3 (4.10-5.30)
--- NOTE | 2020-07-27 14:08 | NUR ---
NO MEDICATIONS LIST AVAILABLE. PT UNAWARE OF MEDS SHE TAKES. JOHANA CALLED AND REPORTED THEIR SYSTEM WAS HAVING ISSUES BUT STATED WILL FAX MED LIST SHORTLY. DR HAMILTON KIMANI LAB FROM DIALYSIS CATHER @ 3828 AT BEDSIDE. OVERIDDEN HEPARIN 10,000 UNITS USED IN PROCESS.
[2020-07-27 14:09] LABS: INR 2.4 (0.8-3.0); PROTHROMBIN TIME 26.6 SECONDS (9.7-12.8)
[2020-07-27 14:15] LABS: ALBUMIN 3.8 gm/dL (3.5-5.0); BILIRUBIN,TOTAL 0.3 mg/dL (0.0-1.0); CALCIUM 8.6 mg/dL (8.4-10.2); CREATININE, serum 5.67 (0.52-1.25); TOTAL PROTEIN 7.7 gm/dL (6.4-8.2)
[2020-07-27 14:24] LABS: HEMATOCRIT 32.8 % (37.0-47.0)
[2020-07-27] MEDS ORDERED: MACROBID 1100 MG/CAP PO (15:16)
[2020-07-27] MEDS ORDERED: COREG 3.123.125 MG/T PO (15:22)
[2020-07-27] MEDS ORDERED: DULCOLAX TAB5 MG PO (15:26)
[2020-07-27 15:50] VITALS: BP 151/53; BP 151/853; PULSE 71; TEMP 98.8
[2020-07-27 19:51] VITALS: BP 133/74; PULSE 71; TEMP 98.5
--- NOTE | 2020-07-27 21:30 | NUR ---
Resting in bed. Assessment complete. Lungs clear. Heart sounds normal. Bowels active x4. Pulses present throughout. Left lower ext edema +2. Left lower ext. discoloration present. Patient has left chest dialysis cath, left upper arm nonworking fistula, right forearm fistula- bruit and thrill at this time. Patient has excoriation to groin area/erythema. Bilateral axillary boils. Denies pain. Denies needs. Call light in reach.
--- NOTE | 2020-07-27 23:21 | NUR ---
Resting in bed. Denies needs. Call light in reach.
[2020-07-28] VITALS (8 sets, daily range): BP systolic 136–172; BP diastolic 46–76; PULSE 73–77; TEMP 98.3–99.1
--- NOTE | 2020-07-28 04:15 | NUR ---
Resting in bed. Call light in reach.
--- NOTE | 2020-07-28 06:11 | NUR ---
Patient had uneventful night. Incontinent of stool and urine. Cares provided each time. Resting in bed this Am. Call light in reach.
--- NOTE | 2020-07-28 07:25 | NUR ---
Report given to DANUTA Mai
--- NOTE | 2020-07-28 07:46 | NUR ---
BEDSIDE REPORT GIVEN. PT RESTING IN BED WITH EYES CLOSED. WOKE UP DURING REPORT. BED HIGH AND PT CONTINUED TO REFUSE BED TO BE LOWERED CITING DIFFICULT TO SEE TV
[2020-07-28 08:41] LABS: BASO % 0.3 % (0.0-2.0); EOS # 0.4 (0.0-0.7); EOS % 5.3 % (0-4.0); GRAN % 56.1 % (42.2-75.2); HEMOGLOBIN 10.1 g/dl (12.5-16.0); LYMPH % 28.6 % (20.0-51.0); MEAN CELL VOLUME 98 fl (80.0-100.0); MEAN CORPUSCULAR HEMOGLOBIN 32 pg (27.0-31.0); MEAN CORPUSCULAR HGB CONC 33 g/dl (33.0-37.0); MEAN PLATELET VOLUME 11.4 fl (7.4-10.4); MONO # 0.6 (0.1-0.6); MONO % 9.1 % (1.7-9.3); PLATELET COUNT 181 K/mm3 (130-400); RED BLOOD COUNT 3.17 M/mm3 (4.10-5.30); REDCELL DISTRIBUTION WIDTH-CV 14.3 % (11.5-14.5)
[2020-07-28 08:42] LABS: HEMATOCRIT 30.9 % (37.0-47.0)
[2020-07-28 08:49] LABS: ALBUMIN 3.5 gm/dL (3.5-5.0); CALCIUM 8.1 mg/dL (8.4-10.2); CREATININE, serum 5.85 (0.52-1.25); PHOSPHOROUS 6.5 mg/dL (2.5-4.5); POTASSIUM 4.6 mmol/L (3.4-5.0)
--- NOTE | 2020-07-28 09:15 | NUR ---
SEE ERIC FOR ALL MEDICATION ADMINISTRATION TIMES AND INTRA AND POST SEDATION ASSESSMENTS
--- NOTE | 2020-07-28 11:05 | NUR ---
PT went had dialysis catheter exchanged @ 0900. PT went straight to dialysis and I am unable to access the site of incision. PT has been incontinent of urine throughout the morning. PT was NPO for procedure.
[2020-07-28 11:11] LABS: PROTHROMBIN TIME 11.2 SECONDS (9.7-12.8)
--- NOTE | 2020-07-28 12:28 | NUR ---
PT returned from dialysis @ 5641. Nurse stated that pt only received 50 minutes of dialysis d/t troubles with catheter. PT reported no pain. She was hungry so breakfast was eaten late. Insulin was given. PT refused colace morning dose. PT now resting comfortably.
--- NOTE | 2020-07-28 12:38 | NUR ---
DR HINSON CALLED TO NOTIFY OF SURGICAL CONSULT. STATES SHE ALREADY SPOKE TO DR HAMILTON AND IS AWARE OF PLAN.
--- NOTE | 2020-07-28 14:03 | NUR ---
social worker psychiatric met with the patient to complete initial intake. The patient reside at [facility] in fdc care. The patient plans to return there at discharge. The patient has a wheelchair. She can transfer herself. SB staff assist with ADLs. SB takes care of the patient's medications. The patient's PCP is Dr. Dupont. The patient does not have advanced directives and was not interested in DPOA-HC form. The patient states her father, Froilan is to make any medical decisions if needed. The patient plans to return to at discharge. JOSEPH faxed updates to Amarjit. JOSEPH contacted Amarjit, left message. Will continue to follow.
--- NOTE | 2020-07-28 19:40 | NUR ---
1700 MEDS SCANNED AND GIVEN @ 1730 BUT GILSON CONSTANTINO. ALBINO USED TO RETRIEVE ACCOUNT BUT MEDS REQUIRED RE-DOCUMENTATION @ 1930. ALREADY TAKEN BY PT
--- NOTE | 2020-07-28 19:43 | NUR ---
END OF SHIFT NOTE: PT NPO SINCE MIDNIGHT. LEFT UNIT IN AM FOR DIALYSIS CATH RE-INSERTION TO LEFT CHEST. TRANSFERED STRAIGHT INTO DIALYSIS POST-PROCEDURE. BG STABLE ALL SHIFT. ATE BREAKFAST AND LUNCH MEAL TOGETHER. WILL ONLY DRINK COFFEE AND DIET SPRITE, OUT OF STOCK AT THIS TIME. REFUSED NEPRO AND WATER. COOPERATING WITH FLUID RESTRICTION. SLEPT MOST OF DAY DUE TO SEDATION. DENIES PAIN. INCONTINENT X2 THIS SHIFT. NO BM. REFUSED COLACE. PLAN FOR RT CVC INSERTION TOMORROW AND PT AWARE TO BE NPO AFTER MIDNIGHT. NO NEW CONCERNS NOTED
--- NOTE | 2020-07-28 20:57 | NUR ---
Resting in bed. Assessment complete. Lungs diminshed throughout. Heart sounds normal. Bowels active x4. Pulses present. Left lower extremity edema +2. Left chest dialysis cath in place. Right forearm fistula bruit/thrill. Patient refused coccyx assessment. Reports 5/10 pain. Requested and provided PRN norco. Denies other needs at this time. Will monitor.
--- NOTE | 2020-07-29 02:17 | NUR ---
Resting in bed asleep. Call light in reach.
[2020-07-29 03:52] VITALS: BP 131/50; PULSE 71; TEMP 98.4
--- NOTE | 2020-07-29 05:18 | NUR ---
Patient required x1 dose of norco for back pain during night. Incontinent of urine during night. Otherwise uneventful night. Resting in bed this AM. Call light in reach.
--- NOTE | 2020-07-29 07:05 | NUR ---
Report given to DANUTA Trinidad
[2020-07-29 07:54] VITALS: BP 140/51; PULSE 72; TEMP 98.6
--- NOTE | 2020-07-29 09:08 | NUR ---
Asssessment complete. Patient arrived back from dialysis catheter placement, disappointed that it did not go well, states she is scared that they will not be able to figure out a way to dialize her. Patient denies pain or discomfort at this time. No IV access, okay per physician. Patient is now lying in bed, states she is comfortable. No other needs were expressed at this time. Call light is in reach. Bed alarm is set.
[2020-07-29 10:36] LABS: BASO % 0.3 % (0.0-2.0); EOS # 0.3 (0.0-0.7); EOS % 3.7 % (0-4.0); GRAN # 4.2 (1.4-6.5); GRAN % 60.3 % (42.2-75.2); LYMPH # 1.9 (1.2-3.4); LYMPH % 26.9 % (20.0-51.0); MEAN CELL VOLUME 98 fl (80.0-100.0); MEAN CORPUSCULAR HGB CONC 32 g/dl (33.0-37.0); MEAN PLATELET VOLUME 11.3 fl (7.4-10.4); MONO # 0.6 (0.1-0.6); MONO % 7.9 % (1.7-9.3); PLATELET COUNT 164 K/mm3 (130-400); RED BLOOD COUNT 3.13 M/mm3 (4.10-5.30); REDCELL DISTRIBUTION WIDTH-CV 14.1 % (11.5-14.5)
[2020-07-29 10:37] LABS: HEMATOCRIT 30.7 % (37.0-47.0); HEMOGLOBIN 9.8 g/dl (12.5-16.0); MEAN CORPUSCULAR HEMOGLOBIN 31 pg (27.0-31.0)
[2020-07-29 10:48] LABS: ALBUMIN 3.5 gm/dL (3.5-5.0); CALCIUM 7.9 mg/dL (8.4-10.2); CREATININE, serum 5.91 (0.52-1.25); PHOSPHOROUS 7.3 mg/dL (2.5-4.5); POTASSIUM 5.1 mmol/L (3.4-5.0)
[2020-07-29 12:17] VITALS: BP 116/62; PULSE 72; TEMP 98.8
--- NOTE | 2020-07-29 13:03 | NUR ---
Amarjit from [facility] contacted this Lubricator Granulator. Amarjit reports that the patient has not been compliant with Covid-19 precautions at [facility]. [facility] gave the patient a 30 day notice to vacate. The last day the patient will be able to live there is 08/25. Amarjit states they can take the patient back at discharge if that is what the patient wants. Amarjit reports she has contacted [facility] with APS. APS has been involved with the patient in the past. Amarjit states the patient has an application for housing but she it is not yet completed. SW to meet with the patient to discuss options.
--- NOTE | 2020-07-29 16:28 | NUR ---
PAtient has had an uneventful shift. She shifts and moves independently in her bed. Has had minimal needs through out the day. She had one episode of incontinence. Patient recieved a full bed change, a bed bath, and a new gown. No complaints of pain or discomfort. No IV access. CAll light is in reach.
[2020-07-29 17:02] VITALS: BP 159/55; PULSE 69; TEMP 98.6
--- NOTE | 2020-07-29 19:25 | NUR ---
Report received from DANUTA Trinidad. Pt resting in bed, denies needs at this time.
[2020-07-29 19:44] VITALS: BP 144/59; PULSE 73; TEMP 98.7
--- NOTE | 2020-07-29 22:02 | NUR ---
Assessment completed. Generalized 1+ edema noted. Pt reporting mild soreness to shoulders, relieved with repositioning. Denies shortness of breath. Pt having incontinent episodes of both urine and stool. Stool appears watery and yuen. Amputation of RLE below knee. Dialysis catheter to left chest clean, dry, intact. Fistula to right forearm with palpable thrill and audible bruit.
[2020-07-30] VITALS: BP 153/64; PULSE 75; TEMP 99.1
[2020-07-30 03:57] VITALS: BP 126/40; PULSE 76; TEMP 98.8
--- NOTE | 2020-07-30 06:08 | NUR ---
Pt lying in bed awake throughout night. Reports of mild to moderate pain in shoulders, relieved by PRN [place] and repositioning. Pt had 2 incontinent episodes of watery stool during shift, also had 3 incontinent urine episodes. Pt able to reposition self in bed. Fluid restriction of 1500 ml exceeded at start of shift, pt only received small sips of water with pills. At this time pt resting in bed, denies needs.
[2020-07-30 07:28] VITALS: BP 145/57; PULSE 72; TEMP 98
--- NOTE | 2020-07-30 07:55 | NUR ---
PT HAD NOT EATEN BREAKFAST SO LONG ACTING INSULIN GIVEN, YENNI TIPTON CALLED FOR PT TO BRING TO DIALYSIS SO OTHER MEDICATIONS HELD. PT REPORTED INCONTINENCE, PERICARE PROVIDED, NEW BED PAD PLACED. PT TAKEN TO DIALYSIS AT 0810. PT NOT REPORTING ANY PAIN OR DISCOMFORT.
[2020-07-30 08:49] LABS: BASO % 0.4 % (0.0-2.0); EOS # 0.3 (0.0-0.7); EOS % 4.4 % (0-4.0); GRAN # 3.8 (1.4-6.5); GRAN % 54.5 % (42.2-75.2); LYMPH # 2.2 (1.2-3.4); LYMPH % 30.5 % (20.0-51.0); MEAN CELL VOLUME 99 fl (80.0-100.0); MEAN CORPUSCULAR HGB CONC 32 g/dl (33.0-37.0); MEAN PLATELET VOLUME 11.7 fl (7.4-10.4); MONO # 0.7 (0.1-0.6); MONO % 9.2 % (1.7-9.3); PLATELET COUNT 156 K/mm3 (130-400); RED BLOOD COUNT 2.97 M/mm3 (4.10-5.30); REDCELL DISTRIBUTION WIDTH-CV 14.4 % (11.5-14.5)
[2020-07-30 08:51] LABS: HEMATOCRIT 29.3 % (37.0-47.0); HEMOGLOBIN 9.4 g/dl (12.5-16.0); MEAN CORPUSCULAR HEMOGLOBIN 32 pg (27.0-31.0)
[2020-07-30 09:03] LABS: ALBUMIN 3.6 gm/dL (3.5-5.0); CALCIUM 7.9 mg/dL (8.4-10.2); CREATININE, serum 6.32 (0.52-1.25); PHOSPHOROUS 8.3 mg/dL (2.5-4.5); POTASSIUM 4.5 mmol/L (3.4-5.0)
--- NOTE | 2020-07-30 09:05 | NUR ---
OTHER MEDICATIONS GIVEN, YENNI UNABLE TO PERFORM DIALYSIS, PT BROUGHT BACK TO ROOM. PT REQUESTED MILK AND COFFEE FOR A TOTAL OF 596ML.
[2020-07-30 10:49] VITALS: BP 145/57; PULSE 72; TEMP 98
--- NOTE | 2020-07-30 11:15 | NUR ---
REPORT CALLED DANUTA VENEGAS AT [facility].
--- NOTE | 2020-07-30 11:58 | NUR ---
PT INCONTINENT OF URINE, PERICARE COMPLETED, BED FLOYD CHANGED, NEW GOWN PROVIDED. NO OTHER NEEDS AT THIS TIME.
[2020-07-30 12:13] VITALS: BP 156/57; PULSE 73; TEMP 98.5
--- NOTE | 2020-07-30 13:27 | NUR ---
The patient is to be transferred to [facility] in [place], room 4029 bed one this day, 07/30. Financial Systems Administrator met with the patient to discuss options for LTC placement due to her pending eviction because of non-comliance of rules and non-compliance of medical needs at [facility]. The patient was interested in placement in [place]. SW provided Medicare.gov's list of facilites in the [place] area. She did not chose any at this time. The patient states she has toured apartments in [place] but did not the building they were in. The patient has not filled out a housing application. SW make an APS report. Intake # [id number]. JOSEPH attempted to contact social staff worker at [facility] to provide an update, left message. JOSEPH attempted to contact Amarjit at [facility] to provide an update, left message. There are no additional needs at this time.
--- NOTE | 2020-07-30 13:31 | NUR ---
PERICARE PROVIDED FOR PATIENT, PT TRANSFERRED TO [facility], PT OSCARONINGS GATHERED ADN TAKEN WITH PT PT WAS TAKEN OFF THE FLOOR.
== END 2020-07-30 13:30 | disposition short-term general hospital (02) | DRG 314 ==
LOC: MEDICAL 11:29
PROVIDERS: Nurse Practitioner; ADMIT Internal Medicine Nephrology
DX: T82.318A Breakdown (mechanical) of other vascular grafts, initial encounter (principal); N18.6 End stage renal disease; I12.0 Hypertensive chronic kidney disease with stage 5 chronic kidney disease or end stage renal disease; E11.22 Type 2 diabetes mellitus with diabetic chronic kidney disease; D63.1 Anemia in chronic kidney disease
CPT/HCPCS: C1750; C1769; J1644; J1815; J7030; Q5105

== ENCOUNTER 2020-08-28 19:40 | Inpatient (IN) | payer MEDICAID ==
[~2020-08-28] VITALS: Ht 167.6 cm; Wt 151.8 kg
[~2020-08-28 19:40] MED LIST changes: +DULCOLAX TAB5 MG PO; +MACROBID 1100 MG/CAP PO
[2020-08-28 21:03] LABS: BASO % 0.3 % (0.0-2.0); EOS # 0.3 (0.0-0.7); EOS % 2.9 % (0-4.0); GRAN # 6.9 (1.4-6.5); GRAN % 73.7 % (42.2-75.2); HEMOGLOBIN 10.3 g/dl (12.5-16.0); LYMPH # 1.3 (1.2-3.4); LYMPH % 14.2 % (20.0-51.0); MEAN CELL VOLUME 98 fl (80.0-100.0); MEAN CORPUSCULAR HEMOGLOBIN 32 pg (27.0-31.0); MEAN CORPUSCULAR HGB CONC 33 g/dl (33.0-37.0); MEAN PLATELET VOLUME 10.8 fl (7.4-10.4); MONO # 0.8 (0.1-0.6); MONO % 8.6 % (1.7-9.3); PLATELET COUNT 173 K/mm3 (130-400); RED BLOOD COUNT 3.18 M/mm3 (4.10-5.30); REDCELL DISTRIBUTION WIDTH-CV 13.5 % (11.5-14.5)
[2020-08-28 21:07] LABS: HEMATOCRIT 31.2 % (37.0-47.0)
[2020-08-28 21:17] LABS: ALBUMIN 4.1 gm/dL (3.5-5.0); BILIRUBIN,TOTAL 0.5 mg/dL (0.0-1.0); C-REACTIVE PROTEIN 2.7 mg/dL (0.0-0.9); CALCIUM 8.8 mg/dL (8.4-10.2); CREATININE, serum 7.01 (0.52-1.25); POTASSIUM 4.4 mmol/L (3.4-5.0)
[2020-08-28 21:29] LABS: TROPONIN-I 0.051 ng/mL (0.000-0.035)
[2020-08-29] VITALS (7 sets, daily range): BP systolic 114–168; BP diastolic 47–91; PULSE 74–88; TEMP 97.8–98.7
--- NOTE | 2020-08-29 01:00 | NUR ---
Patient arrived to medical floor from ER at approximately 0015. Alert and oriented to self. Unable to stay on task. Speach is clear at times, then slurred and inappropriate. States "I know i'm talking crazy." Denies having pain and discomfort. No IV access. ER reported that it was ok'd to use HD catheter for IV Vancomycin per MD for tonight. Catheter flushed with 10 ml NS afterwards, followed by 1.7 mls for Heparin per Verbal order from MAIK Woodard. Dressing to catheter site is CDI. Redness to top of site with warmth. Patient denies SOB and dyspnea. LS CTA in upper lobes, diminished in lower. HRR. Telemetry placed, normal sinus. Capillary refill less than 3 seconds. Non-tenting skin turgor. BSAx4. Denies diarrhea and constipation. Patient was incontinent when arriving from ER, and was changed in bed. Patient has generalized edema throughout body. Oriented to room. High fall risk precautions initiated. Given food and fluids as requested. Voices no further questions, needs, or concerns at this time. Resting in bed with call light within reach.
--- NOTE | 2020-08-29 06:09 | NUR ---
Patient has been incontinent and changed in bed this shift. Conversation continues to be off topic/confused. Denies having pain and discomfort. High fall risk precautions in place. Patient has been awake most of shift. Has yelled out but stated "Did I do that again? It's embarassing that I yell in my sleep." Has been seeing "small black bugs." This nurse unable to see any bugs and patient gets upset. Resting in bed with call light within reach. High fall risk precautions remain in place.
--- NOTE | 2020-08-29 08:03 | NUR ---
Laura RN notified of PT's telemetry leads being off
[2020-08-29 13:08] LABS: BASO % 0.5 % (0.0-2.0); EOS # 0.3 (0.0-0.7); EOS % 2.9 % (0-4.0); GRAN # 6.3 (1.4-6.5); GRAN % 73.6 % (42.2-75.2); HEMOGLOBIN 10.2 g/dl (12.5-16.0); LYMPH # 1.3 (1.2-3.4); LYMPH % 15.2 % (20.0-51.0); MEAN CELL VOLUME 99 fl (80.0-100.0); MEAN CORPUSCULAR HEMOGLOBIN 33 pg (27.0-31.0); MEAN CORPUSCULAR HGB CONC 33 g/dl (33.0-37.0); MEAN PLATELET VOLUME 11.1 fl (7.4-10.4); MONO # 0.7 (0.1-0.6); MONO % 7.5 % (1.7-9.3); PLATELET COUNT 173 K/mm3 (130-400); RED BLOOD COUNT 3.11 M/mm3 (4.10-5.30); REDCELL DISTRIBUTION WIDTH-CV 13.7 % (11.5-14.5)
[2020-08-29 13:11] LABS: HEMATOCRIT 30.8 % (37.0-47.0)
[2020-08-29 13:32] LABS: ALBUMIN 4.3 gm/dL (3.5-5.0); CALCIUM 8.3 mg/dL (8.4-10.2); CREATININE, serum 7.05 (0.52-1.25); PHOSPHOROUS 8.3 mg/dL (2.5-4.5); POTASSIUM 4.5 mmol/L (3.4-5.0)
--- NOTE | 2020-08-29 13:56 | NUR ---
Primary nurse was assisted with [id number] patient care by [employer] [facility] Janice Marte and [employer] instructor Kathi Ortega RN-.
--- NOTE | 2020-08-29 16:43 | NUR ---
JOSEPH met with the patient to discuss discharge plan. The patient appeared erractic during intake and would only answer some of JOSEPH's questions. The patient was recently evicted from [facility]. She returned to her daughter, Sherin Lynn, home on 08/25/2020. She was not able to tell JOSEPH if they set her up with any home health services. She states that she has a wheelchair and that her daughter helps her with her ADLs. EMR lists that her PCP is Dr. Damian Dupont. She does not have a DPOA-HC. Her father, Froilan, is listed as next of kin and person to notify. JOSEPH attempted to contact Froilan. JOSEPH left him a voicemail. JOSEPH tried to obtain Sherin's phone number from the patient. The patient reports that she talks to her daughter, via [employer]. JOSEPH contacted APS worker, Nena. Nena reports that the patient is assigned to her. She states that she had planned on visiting the patient at her daughter's home today, but will now come up to the hospital to see the patient. Nena states that she does not have a phone number for Sherin either. She states that she has been trying to obtain Sherin's phone number from [facility], but has been unsuccessful. She states that [facility] has not given it to her. Nena plans to follow along with the patient while she is here. JOSEPH contacted Amarjit at [facility] to try and inquire Sherin's phone number. Amarjit states that she needs to dig in the patient's folder and will try and get it as soon as possible. JOSEPH attempted to follow up with Amarjit at [facility] again to obtain the number and have not heard back from her. JOSEPH collaborated with Dr. Crockett. The patient is to be here through the weekend. The patient is deciding on whether she wants to continue dialysis or not. SW to continue to follow.
--- NOTE | 2020-08-29 16:58 | NUR ---
Amarjit, at [facility], contacted back to provide the daughter, Sherin's number. [phone].
--- NOTE | 2020-08-29 19:09 | NUR ---
Patient alert, disoriented and agitated. denies any pain. generalized edema. patient dialysis catheter surrounding appear inflammed. Patient initially refused dialysis this morning without given any reason. Dr Crockett and WALESKA Woodard spoke with patient. Patient later agree to dialysis. RN administer 0.5mg of Ativan to patient before dialysis as patient was restless. Patient tolerate dialysis. Dialysis nurse report 4,400mL of fluid was removed during dialysis. Blood culture came back positive for cocci, Staph specie. RN reported to WALESKA Woodard culture report. Head CT was order for patient. Patient home medication resumed. Report given to night nurseSabi.
--- NOTE | 2020-08-29 20:10 | NUR ---
Pt to CT via bed.
--- NOTE | 2020-08-29 20:40 | NUR ---
Pt arrived back to room from CT.
--- NOTE | 2020-08-30 02:21 | NUR ---
Pt alert and oriented. Able to carry conversation. Occaional random movements of arms. States having pain and requesting pain meds. Pain med and scheduled med administered. Pt turned and repositioned. Tele monitor in place. HD cath to lt chest with redness and slight purulent drainage observed to top of dressing, dressing CDI. Pt able to voice needs and concerns. Pt understands dialysis again tmrw. Needs met. call light within reach.
[2020-08-30 03:18] VITALS: BP 116/49; PULSE 64; TEMP 97.7
--- NOTE | 2020-08-30 06:41 | NUR ---
Needs attended to through the night. Had no complaints. Incontinent of urine, briefs changed. Pt c/o pain to butt cheek, observed two tiny papule-like opening with scant bleeding, surrounding skin blanchable. call light within reach. Bed alarm set.
--- NOTE | 2020-08-30 07:14 | NUR ---
Report given to DANUTA Trinidad.
[2020-08-30 08:04] VITALS: BP 146/63; PULSE 72; TEMP 98
--- NOTE | 2020-08-30 09:11 | NUR ---
Assessment complete. Patient sitting up in bed with breakfast at this time. States she feels alright. Dialysis catheter site does have drainage visible at the top of the gauze under the tegaderm, which is unchanged since last night as far as quantity per what I recieved in report. No complaints of pain or discomfort expressed. Patient reports that her throat is very sore, I told her we will let Dr. Crockett know this on his arrival, she states this has already been brought to his attention. Fistula is palpable and audible via ascultation, site is healed no dressing. Pt has no IV access as she refuses. She also refused labs as she knows she is a hard stick and will have dialysis today. No other needs were expressed at this time. Call light is in reach.
[2020-08-30 11:17] LABS: BASO % 0.3 % (0.0-2.0); EOS # 0.3 (0.0-0.7); GRAN # 4.4 (1.4-6.5); GRAN % 65.5 % (42.2-75.2); LYMPH # 1.4 (1.2-3.4); MEAN CELL VOLUME 100 fl (80.0-100.0); MEAN CORPUSCULAR HGB CONC 32 g/dl (33.0-37.0); MEAN PLATELET VOLUME 11.4 fl (7.4-10.4); MONO # 0.6 (0.1-0.6); MONO % 8.9 % (1.7-9.3); PLATELET COUNT 161 K/mm3 (130-400); RED BLOOD COUNT 3.09 M/mm3 (4.10-5.30); REDCELL DISTRIBUTION WIDTH-CV 13.5 % (11.5-14.5)
[2020-08-30 11:24] LABS: HEMATOCRIT 30.8 % (37.0-47.0); HEMOGLOBIN 9.9 g/dl (12.5-16.0); MEAN CORPUSCULAR HEMOGLOBIN 32 pg (27.0-31.0)
[2020-08-30 11:30] LABS: ALBUMIN 3.7 gm/dL (3.5-5.0); CALCIUM 8.1 mg/dL (8.4-10.2); CREATININE, serum 5.96 (0.52-1.25); PHOSPHOROUS 7.3 mg/dL (2.5-4.5); POTASSIUM 4.5 mmol/L (3.4-5.0)
--- NOTE | 2020-08-30 11:58 | NUR ---
Vancomycin Follow-up Pharmacy Note Current regimen: dialysis patient: dosed by level Vancomycin trough: 14.3 Adjustments: Vancomycin 1.5g once. next trough before dialysis 09/02.
[2020-08-30 16:39] VITALS: BP 107/80; PULSE 63; TEMP 98.3
--- NOTE | 2020-08-30 17:02 | NUR ---
Patient spent most of the day in dialysis. PRN pain medication given as requested. She is now napping since arriving back from dialysis. Still no IV access, provider is aware. No other needs were expressed. Will continue to monitor.
--- NOTE | 2020-08-30 19:00 | NUR ---
Pt was lying on bed while this nurse was having bedside handover. Pt looks tensed and not interested to talk. Will keep monitoring.
[2020-08-30 19:48] VITALS: BP 112/49; PULSE 73; TEMP 98.1
[2020-08-31] VITALS: BP 138/80; PULSE 52; TEMP 98.3
--- NOTE | 2020-08-31 01:16 | NUR ---
Pt assessment completed and charted, alert, oriented. Meds provided as per MAR, tolerated well. Pt is settled on bed, call light is on reach, bed alarm is on. No further needs as per pt.
[2020-08-31 03:44] VITALS: BP 130/49; PULSE 70; TEMP 97.8
--- NOTE | 2020-08-31 05:19 | NUR ---
Pt slept on and off through out he night. Morning meds provided as per JAN, tolerated well. No further needs at this time.
[2020-08-31 07:28] LABS: BASO % 0.5 % (0.0-2.0); EOS # 0.3 (0.0-0.7); EOS % 4.7 % (0-4.0); GRAN # 3.8 (1.4-6.5); GRAN % 61.3 % (42.2-75.2); HEMOGLOBIN 10.2 g/dl (12.5-16.0); LYMPH # 1.4 (1.2-3.4); LYMPH % 22.6 % (20.0-51.0); MEAN CELL VOLUME 102 fl (80.0-100.0); MEAN CORPUSCULAR HEMOGLOBIN 33 pg (27.0-31.0); MEAN CORPUSCULAR HGB CONC 32 g/dl (33.0-37.0); MEAN PLATELET VOLUME 11.6 fl (7.4-10.4); MONO # 0.6 (0.1-0.6); MONO % 9.9 % (1.7-9.3); PLATELET COUNT 142 K/mm3 (130-400); RED BLOOD COUNT 3.14 M/mm3 (4.10-5.30); REDCELL DISTRIBUTION WIDTH-CV 13.5 % (11.5-14.5)
[2020-08-31 07:36] LABS: ALBUMIN 3.7 gm/dL (3.5-5.0); CALCIUM 8.3 mg/dL (8.4-10.2); CREATININE, serum 4.61 (0.52-1.25); PHOSPHOROUS 6.1 mg/dL (2.5-4.5); POTASSIUM 4.6 mmol/L (3.4-5.0)
[2020-08-31 08:00] VITALS: BP 111/76; PULSE 75
--- NOTE | 2020-08-31 11:49 | NUR ---
Assessment complete. Patient just arrived back from dialysis. States she feels funny and keeps refering to the other day when her mental status was altered and states that she cant believe thats how shes was and that she doesnt remember most of it. No complaints of pain at this time. Dialysis catheter dressing was changed by dialysis nurse, new dressing is CD&I. Pt continues to have no IV access, ok per provider. Patient requests not to have BS tested again before lunch but it was tested just prior so she was dosed based on that. No other needs were expressed. Call light is in reach.
[2020-08-31 15:31] VITALS: BP 121/40; PULSE 76; TEMP 98.8
--- NOTE | 2020-08-31 16:44 | NUR ---
Patient has had a good day. She was up tp the chair with PT and ambulated to the restroom multiple times through the day using her walker.She did take some PRN tylenol for the soreness in her left butt cheek. Daughter is now at the bedside. Patients stroke screens have remained unchanged. Her and her daughter are aware of her POC. NO other needs were expressed. Fall precautions are in place. Call light is in reach.
--- NOTE | 2020-08-31 16:53 | NUR ---
Patient has slept most of the day, with no complaints of pain thus far. Reported feeling light headed and "weird" after dialysis. When returning from dialysis vitals were assessed and pts O2 sat was hovering in the high 80s. I placed her on 2 L of O2 as this is what she wears while in dialysis. At most recent vital pt was satting 99%, I took of O2 through process of vitals and patient remained 93-94%, O2 was left off as pt was satting well. Pt went back to sleep after this. Continues to report "weird dreams" everytime she is awoken and states that things she hears or feels become part of her dreams. No other needs were expressed at this time. Call light is in reach.
[2020-08-31 19:21] VITALS: BP 134/37; PULSE 76; TEMP 98.2
--- NOTE | 2020-08-31 22:23 | NUR ---
Pt assessment completed and charted, alert, oriented, roomair. Pt was watching TV when this nurse went for bedside handover. Meds provided as per Jan. Pt has no complained of N/V/D, tingling, numbness, SOA, pain. Pt is settled on her bed, call light is on reach. No further needs at this time.
[2020-08-31 23:25] VITALS: BP 143/55; PULSE 74; TEMP 98.3
[2020-09-01 03:38] VITALS: BP 150/56; PULSE 71; TEMP 98.1
--- NOTE | 2020-09-01 05:53 | NUR ---
Pt had an uneventful night. slept through out the night. Morning med provided as per JAN. No further needs at this time.
[2020-09-01 07:29] VITALS: BP 149/33; PULSE 95; TEMP 98
--- NOTE | 2020-09-01 09:24 | NUR ---
Pt resting in bed. States she feels as though she is in a fog today. She has been informed of the 1500ml fluid restriction. Discussing with DANUTA Murdock, regarding insulin and blood sugars. Pt states that she is typically on 25units of novolog with each meal. No further concenrns at this time. Will continue to monitor. Call light within reach.
[2020-09-01 11:49] VITALS: BP 152/47; PULSE 74; TEMP 98.8
[2020-09-01 13:27] LABS: HEMOGLOBIN 10.1 g/dl (12.5-16.0); MEAN CELL VOLUME 100 fl (80.0-100.0); MEAN CORPUSCULAR HEMOGLOBIN 32 pg (27.0-31.0); MEAN CORPUSCULAR HGB CONC 32 g/dl (33.0-37.0); MEAN PLATELET VOLUME 11.9 fl (7.4-10.4); PLATELET COUNT 155 K/mm3 (130-400); RED BLOOD COUNT 3.15 M/mm3 (4.10-5.30); REDCELL DISTRIBUTION WIDTH-CV 13.4 % (11.5-14.5)
[2020-09-01 13:32] LABS: HEMATOCRIT 31.5 % (37.0-47.0)
[2020-09-01 13:56] LABS: BAND 1 % (0-10); EOSINOPHIL 3 % (0-4); LYMPHOCYTE 28 % (20.0-51.0); MYELOCYTE 1 % (0-0); NEUTROPHILS 64 % (42.0-75.2); PLATELET ESTIMATE NORMAL (NORMAL)
[2020-09-01 13:57] LABS: OVALOCYTES 1+
[2020-09-01 14:05] LABS: ALBUMIN 3.5 gm/dL (3.5-5.0); CALCIUM 8.8 mg/dL (8.4-10.2); CREATININE, serum 4.62 (0.52-1.25); PHOSPHOROUS 4.3 mg/dL (2.5-4.5); POTASSIUM 4.1 mmol/L (3.4-5.0)
[2020-09-01 16:28] VITALS: BP 154/65; PULSE 73; TEMP 98.2
--- NOTE | 2020-09-01 16:31 | NUR ---
JOSEPH met with the patient and the patient's daughter, Erica (ph#[phone]), to review d/c plan. Erica lives in [place]. JOSEPH discussed the clinical team's recommendation of post-acute rehab and care home placement. The patient reports that she is not going anywhere, but home upon discharge. SW addressed how she did not go to dialysis when she was at her daughter's house. The patient reports that she can pick and choose when she wants to go to dialysis. Her daughter, Erica, states that she can schedule rides for the patient to diaylsis through her Medicaid. The patient states that she wants to return home upon discharge and only needs a new wheelchair from . JOSEPH also addressed her missed visits with therapy. The patient states that she will work with them, if she wants to. SW encouraged that she work with therapy. JOSEPH also discussed a DPOA-HC. The patient states that she is not interested in a DPOA-HC at this time. JOSEPH to inform the patient's attending, Dr. Crockett on the above information.
--- NOTE | 2020-09-01 16:34 | NUR ---
PT REFUSING TELEMETRY, WILL CONTACT PHYSICIAN AT THIS TIME.
[2020-09-01 19:44] VITALS: BP 148/40; PULSE 73; TEMP 98.2
--- NOTE | 2020-09-01 22:10 | NUR ---
Patient assessed at this time. Alert and oriented x 4, and able to make needs known. Denies having pain and discomfort at this time. HD catheter to left chest. Site has redness. Dressing to area is CDI. Denies having SOB and dyspnea. LS CTA in upper lobes, diminished in lower. Respirations even and unlabored. HRR. Capillary refill less than 3 seconds. Non-tenting skin turgor. BSAx4. Abdomen soft and non-tender. 1+ edema BUE, 2+ LLE. Incontinent of bladder, and lets staff know when she needs changed. Redness to bottom. Old opened areas on bottom continue to be closed at this time. Voices no questions, needs, or concerns at this time. Resting in bed with call light within reach.
[2020-09-02] VITALS: BP 146/41; PULSE 74; TEMP 98.6
[2020-09-02 04:00] VITALS: BP 169/48; PULSE 76; TEMP 98.3
--- NOTE | 2020-09-02 05:06 | NUR ---
Patient has been resting in bed with call light within reach. Has not had any complaints of pain or discomfort this shift. Plans for HD today and then to take out HD catheter due to infection. Voices no questions, needs, or concers at this time.
--- NOTE | 2020-09-02 06:45 | NUR ---
Pt getting cleaned up at this time by PCT. Checked in, pt denies any further needs at this time. Will return to assess. Pt will be going to dialysis today, and then having her dialysis catheter removed. No further concern at this time.
--- NOTE | 2020-09-02 08:00 | NUR ---
Assessed pt. No concerns at this time. Pt is unkempt, and refuses to get cleaned up. Pt does not want to be here. Dialysis planned for 1230, pt will get lunch, have dialysis and then have the port removed today. Pt denies pain. No further concerns. Will continue to monitor. Pt call light within reach.
[2020-09-02 08:01] VITALS: BP 148/54; PULSE 67; TEMP 98.3
[2020-09-02 11:45] VITALS: BP 166/47; PULSE 71; TEMP 98.5
[2020-09-02 13:20] LABS: BASO % 0.5 % (0.0-2.0); EOS # 0.2 (0.0-0.7); EOS % 3.6 % (0-4.0); GRAN # 4.1 (1.4-6.5); GRAN % 61.8 % (42.2-75.2); HEMOGLOBIN 10.4 g/dl (12.5-16.0); LYMPH # 1.6 (1.2-3.4); LYMPH % 24.5 % (20.0-51.0); MEAN CELL VOLUME 100 fl (80.0-100.0); MEAN CORPUSCULAR HEMOGLOBIN 32 pg (27.0-31.0); MEAN CORPUSCULAR HGB CONC 32 g/dl (33.0-37.0); MEAN PLATELET VOLUME 11.6 fl (7.4-10.4); MONO # 0.5 (0.1-0.6); MONO % 8.2 % (1.7-9.3); PLATELET COUNT 173 K/mm3 (130-400); RED BLOOD COUNT 3.29 M/mm3 (4.10-5.30); REDCELL DISTRIBUTION WIDTH-CV 13.4 % (11.5-14.5)
[2020-09-02 13:30] LABS: ALBUMIN 3.8 gm/dL (3.5-5.0); CALCIUM 8.8 mg/dL (8.4-10.2); CREATININE, serum 5.55 (0.52-1.25); PHOSPHOROUS 4.9 mg/dL (2.5-4.5); POTASSIUM 4.3 mmol/L (3.4-5.0)
[2020-09-02 13:42] LABS: HEMATOCRIT 32.8 % (37.0-47.0)
--- NOTE | 2020-09-02 16:21 | NUR ---
The patient has not been participating with therapy. JOSEPH updated Dr. Crockett and Collette about how the patient is refusing placement and not working with therapy. JOSEPH then met with the patient to inform her that if she is wanting a wheelchair, her insurance will need to see therapy notes, for them to cover the costs. SW encouraged her to work with therapy. The patient verbalized understanding and states that she can work with therapy tomorrow morning. SW attempted to contact the patient's daughter, Sherin. It went straight to voicemail. SW left her a voicemail.
[2020-09-02 16:30] VITALS: BP 90/30; PULSE 74; TEMP 98
--- NOTE | 2020-09-02 18:56 | NUR ---
REPORT GIVEN TO ADNUTA ENAMORADO
[2020-09-02 20:33] VITALS: BP 134/33; PULSE 72; TEMP 98.9
--- NOTE | 2020-09-02 21:00 | NUR ---
Patient assessed at this time. Alert and oriented x 4, and able to make needs known. Denies having pain and discomfort at this time. No IV access. HD catheter to left chest, redness/tenderness to area. Denies SOB and dyspnea. LS CTA. Respirations even and unlabored. HRR. Capillary refill less than 3 seconds. Non-tenting skin turgor. BSAx4. Abdomen soft and non-tender. Incontinent of bladder. Jennifer care provided. 1+ edema BUE and LLE. Voices no questions, needs, or concerns at this time. Resting in bed with call light within reach.
[2020-09-03] VITALS: BP 124/52; PULSE 67; TEMP 98.7
[2020-09-03 04:05] VITALS: BP 137/43; PULSE 77; TEMP 98.7
--- NOTE | 2020-09-03 05:16 | NUR ---
Patient has been resting in bed with call light within reach. Has denied having pain and discomfort this shift. Voices no questions, needs, or concerns this shift.
[2020-09-03 07:21] VITALS: BP 151/61; PULSE 69; TEMP 98.5
[2020-09-03 12:00] VITALS: BP 164/63; PULSE 78; TEMP 97.9
--- NOTE | 2020-09-03 15:59 | NUR ---
JOSEPH staffed with Dr. Crockett. The patient may be able to d/c on Tuesday, 09/08. JOSEPH met with the patient to review d/c plan. The patient plans to return home with her daughter. JOSEPH discussed the wheelchair and home health. The patient is agreeable to getting her wheelchair at [facility] and trying home health through [facility]. She states that her PCP is Dr. Gracia Bueno. JOSEPH contacted and faxed the wheelchair order to Miranda at [facility]. JOSEPH contacted and faxed a referral to Brea at [facility]. Cydni reports that they do take Medicaid [employer] and do not see a problem with accepting the patient for services. JOSEPH to inform the patient. JOSEPH contacted the patient's daughter, Sherin, and updated her on the above information. Sherin reports that she is ready for the patient to return back home with her and does not have any concerns about her returning home. She states that she can take the patient to dialysis and if she cannot, she can schedule her a ride through Medicaid transportation. Sherin had no other questions for JOSEPH at this time.
[2020-09-03 16:14] VITALS: BP 118/44; PULSE 73; TEMP 98.3
[2020-09-03 19:31] VITALS: BP 143/46; PULSE 69; TEMP 98.3
--- NOTE | 2020-09-03 20:38 | NUR ---
PATIENT ALERT, ORIENTED. COMPLAIN OF PAIN ONE TIME. RECIEVED NORCO FOR PAIN. DIALYSIS CATHERE WAS REMOVED TODAY. SITE DRESSED WITH GAUZE,NO DRAINAGE. PATIENT RESTING IN BED.
--- NOTE | 2020-09-03 21:47 | NUR ---
Pt assessment completed and documented. Pt sleeping upon entering room. Dinner tray untouched at bedside. Attempted to offer snack with HS levemir. Pt stated she did not want to eat at this time and just wants to be left alone and stated "I will just refuse my levemir for tonight." Will attempt to recheck BG at midnight and reassess insulin needs. Pt drowsy. Oriented x4. Denies pain. Pt denies any needs or concerns at this time. Call light within reach. Will continue to monitor
--- NOTE | 2020-09-03 23:45 | NUR ---
Pt refusing to get BG checked at this time. Still has not eaten anything since RN arrived. Pt also refusing midnight vitals
[2020-09-04 03:41] VITALS: BP 149/46; PULSE 71; TEMP 98.4
--- NOTE | 2020-09-04 06:25 | NUR ---
Pt states she rested well overnight. No complaints of pain. Pt incontinent of urine this morning. Bed bath provided. Pt denies any needs/concerns at this time. Call light within reach
[2020-09-04 07:42] VITALS: BP 160/77; PULSE 70; TEMP 98.8
[2020-09-04 11:42] VITALS: BP 151/72; PULSE 71; TEMP 98.9
--- NOTE | 2020-09-04 12:44 | NUR ---
Charity, at [facility], reports that they are able to accept the patient for services. Quynh, at [facility], reports that they do not have any 24 inch wheelchairs in stock right now, but will be getting them. She states that they should hopefully get the 24 inch in by Tuesday, but if not, they can provide the patient with a 22 inch wheelchair until the 24 inch arrives.
--- NOTE | 2020-09-04 13:54 | NUR ---
Primary nurse was assisted with [id number] patient care by [employer] [facility] Angelo Martin and [employer] instructor Kathi Ortega RN-.
[2020-09-04 17:22] VITALS: BP 155/94; PULSE 75; TEMP 98.6
--- NOTE | 2020-09-04 18:20 | NUR ---
Patient is alert and oriented. denies any pain. dressing on left chest wound was changed twice today. patient had a shower this evening. Patient signed consent for dialysis catheter placement for 09/05/20. Jessica grinding and spraying supervisor placed 24gauge IV on Left forearm.
--- NOTE | 2020-09-04 19:08 | NUR ---
REPORT GIVEN TO DANUTA ARGUELLES
[2020-09-04 19:40] VITALS: BP 109/54; PULSE 80; TEMP 98.4
--- NOTE | 2020-09-04 21:30 | NUR ---
Pt assessment completed and documented. Pt resting in bed at this time trying to sleep. Pt alert and oriented x4. Denies pain. INT to left forearm CDI. Fistula to right forearm CDI with audible bruit and palpable thrill. Pt denies any needs at this time. Call light wtihin reach.
[2020-09-04 23:40] VITALS: BP 114/53; PULSE 72; TEMP 98.2
[2020-09-05 03:20] VITALS: BP 106/49; PULSE 74; TEMP 98.5
--- NOTE | 2020-09-05 05:07 | NUR ---
Pt rested well overnight. No complaints of pain. Pt denies any needs/concerns at this time. Call light within reach
--- NOTE | 2020-09-05 07:29 | NUR ---
Report given to DANUTA Arzate
[2020-09-05 07:43] VITALS: BP 121/66; PULSE 72; TEMP 97.6
--- NOTE | 2020-09-05 07:45 | NUR ---
Pt laying in bed at this time resting. Is to have a dialysis catheter placed by Dr. Blair this morning. Pt has been refusing care and treatment, however is saying she is good to get the dialysis catheter placed.
--- NOTE | 2020-09-05 08:22 | NUR ---
Nena, APS worker, contacted JOSEPH for an update on the patient's status and d/c plan. JOSEPH informed her of the tentative d/c on Tuesday, 09/08, with home health services. Nena plans to follow the patient in the home after she discharges.
[2020-09-05 11:58] VITALS: BP 121/66; PULSE 72
--- NOTE | 2020-09-05 11:59 | NUR ---
SEE ERIC FORALL MEDICATION ADMINISTRATION TIMES, INTRA AND POST SEDATION ASSESSMENT
[2020-09-05 15:49] LABS: CALCIUM 8.8 mg/dL (8.4-10.2); CREATININE, serum 7.59 (0.52-1.25); PHOSPHOROUS 6.7 mg/dL (2.5-4.5); POTASSIUM 5.3 mmol/L (3.4-5.0)
[2020-09-05 16:07] LABS: BASO % 0.3 % (0.0-2.0); EOS # 0.3 (0.0-0.7); EOS % 3.6 % (0-4.0); GRAN % 63.2 % (42.2-75.2); HEMOGLOBIN 11.1 g/dl (12.5-16.0); LYMPH % 25.7 % (20.0-51.0); MEAN CELL VOLUME 98 fl (80.0-100.0); MEAN CORPUSCULAR HEMOGLOBIN 32 pg (27.0-31.0); MEAN CORPUSCULAR HGB CONC 33 g/dl (33.0-37.0); MEAN PLATELET VOLUME 11.9 fl (7.4-10.4); MONO # 0.5 (0.1-0.6); MONO % 6.2 % (1.7-9.3); PLATELET COUNT 182 K/mm3 (130-400); RED BLOOD COUNT 3.47 M/mm3 (4.10-5.30); REDCELL DISTRIBUTION WIDTH-CV 13.5 % (11.5-14.5)
[2020-09-05 16:13] LABS: HEMATOCRIT 34.1 % (37.0-47.0)
[2020-09-05 19:51] VITALS: BP 144/59; PULSE 75; TEMP 98.2
--- NOTE | 2020-09-05 20:30 | NUR ---
Initial shift assessment done- Dialysis cathter to left chest with some old drainage on gauze under the occlusive dressing-- some bruising noted, very tender around site- will medicate pt with [place] and Dilaudid as ordered- - not due for Dilaudid till closer to 2300-- talking on phone- seems in good spirits- pleasant
[2020-09-06 04:51] VITALS: BP 133/70; PULSE 70
--- NOTE | 2020-09-06 06:40 | NUR ---
Was awake majority of night-- did get Dilaudid IV x2 this shift for left chest incison pain, Dialysis catheter to left chest intact- does have some drainage on gauze but not increased this shift-- Did also get [place] as ordered every 4 hrs for pain to dialysis catheter site-
--- NOTE | 2020-09-06 07:45 | NUR ---
PATIENT IS RESTING IN BED ON RIGHT SIDE. STATES SHE IS TIRED, DOES NOT WANT TO HAVE VS DONE. SHE ALSO IS TO HAVE DIALYSIS AND IS NOT HAPPY WITH THIS.
[2020-09-06 09:00] VITALS: BP 112/54; PULSE 66; TEMP 98.4
[2020-09-06 12:00] VITALS: BP 100/53; PULSE 61; TEMP 97.8
--- NOTE | 2020-09-06 13:56 | NUR ---
SW update, called [facility] for Wheelchair delivery. 22 inch delivered to room for DC>
[2020-09-06] MEDS ORDERED: NORCO 325 MG-51 TAB PO (16:39)
--- NOTE | 2020-09-06 19:19 | NUR ---
PATIENT DISCHARGED HOME WITH FAMILY AT 1814. WAS ASSISTED TO PRIVATE VEHICLE VIA WHEELCHAIR. PERSONAL BELONGINGS TAKEN WITH PATIENT.
--- NOTE | 2020-09-08 11:32 | NUR ---
No with [facility] contacted this Line Installer Trolley regarding the patient and her discharge. The patient discharged over the weekend. No reports they can accept her but for nursing services only, due to the patient's insurance, Medicaid. JOSEPH staffed with Dr. Bon Murdock' nurse to get home health orders. JOSEPH faxed orders to No. There are no additional needs.
== END 2020-09-06 18:15 | disposition home or self-care (01) | DRG 314 ==
LOC: COL.ER 19:40 → MEDICAL 22:28
PROVIDERS: Emergency Medicine; Nurse Practitioner; ADMIT Internal Medicine Nephrology
PROC: 5A1D70Z Performance of Urinary Filtration, Intermittent, Less than 6 Hours Per Day (ICD-10-PCS; 2020-08-29)
PROC: 02PY33Z Removal of Infusion Device from Great Vessel, Percutaneous Approach (ICD-10-PCS; principal; 2020-09-03)
PROC: 0JPT0XZ Removal of Tunneled Vascular Access Device from Trunk Subcutaneous Tissue and Fascia, Open Approach (ICD-10-PCS; 2020-09-03)
PROC: 0JH63XZ Insertion of Tunneled Vascular Access Device into Chest Subcutaneous Tissue and Fascia, Percutaneous Approach (ICD-10-PCS; 2020-09-05)
PROC: 02H633Z Insertion of Infusion Device into Right Atrium, Percutaneous Approach (ICD-10-PCS; 2020-09-05)
DX: T80.212A Local infection due to central venous catheter, initial encounter (principal); N18.6 End stage renal disease; G93.41 Metabolic encephalopathy; I13.2 Hypertensive heart and chronic kidney disease with heart failure and with stage 5 chronic kidney disease, or end stage renal disease; I50.22 Chronic systolic (congestive) heart failure; E03.9 Hypothyroidism, unspecified; E11.22 Type 2 diabetes mellitus with diabetic chronic kidney disease; E66.9 Obesity, unspecified; F32.9 Major depressive disorder, single episode, unspecified; J44.9 Chronic obstructive pulmonary disease, unspecified; E87.70 Fluid overload, unspecified; B95.8 Unspecified staphylococcus as the cause of diseases classified elsewhere; D63.1 Anemia in chronic kidney disease; F17.210 Nicotine dependence, cigarettes, uncomplicated; Z99.2 Dependence on renal dialysis; Z88.2 Allergy status to sulfonamides; Z79.4 Long term (current) use of insulin; Z91.15 Patient's noncompliance with renal dialysis
CPT/HCPCS: J1170; J1644; J1815; J2250; J3010; J3370; J7030; J7050; Q5105

== ENCOUNTER 2020-09-18 15:51 | Inpatient (IN) | payer MEDICAID ==
[~2020-09-18] VITALS: Ht 167.6 cm; Wt 144.0 kg
[2020-09-18 16:48] LABS: COLLECTION METHOD CATHETER
[2020-09-18 16:58] LABS: BUDDING YEAST Present /hpf; MUCOUS Present /lpf; PH 5 (5-8); URINE APPEARANCE Hazy; URINE BACTERIA Many /hpf; URINE BILIRUBIN Negative (NEGATIVE); URINE BLOOD 2+ (NEGATIVE); URINE COLOR Yellow; URINE GLUCOSE 3+ (NEGATIVE); URINE KETONE Negative (NEGATIVE); URINE LEUKOCYTE ESTERASE Trace (NEGATIVE); URINE NITRATE Negative (NEGATIVE); URINE PROTEIN(semi-quant) 2+ (NEGATIVE); URINE RBC 0-2 /hpf; URINE UROBILINOGEN Negative (NEGATIVE)
[2020-09-18 17:07] LABS: BASO % 0.5 % (0.0-2.0); EOS # 0.2 (0.0-0.7); EOS % 3.7 % (0-4.0); GRAN # 4.4 (1.4-6.5); GRAN % 66.7 % (42.2-75.2); HEMOGLOBIN 11.3 g/dl (12.5-16.0); LYMPH # 1.3 (1.2-3.4); LYMPH % 19.9 % (20.0-51.0); MEAN CELL VOLUME 98 fl (80.0-100.0); MEAN CORPUSCULAR HEMOGLOBIN 32 pg (27.0-31.0); MEAN CORPUSCULAR HGB CONC 33 g/dl (33.0-37.0); MEAN PLATELET VOLUME 12.1 fl (7.4-10.4); MONO # 0.6 (0.1-0.6); MONO % 8.9 % (1.7-9.3); PLATELET COUNT 190 K/mm3 (130-400); RED BLOOD COUNT 3.55 M/mm3 (4.10-5.30); REDCELL DISTRIBUTION WIDTH-CV 13.5 % (11.5-14.5)
[2020-09-18 17:13] LABS: HEMATOCRIT 34.8 % (37.0-47.0)
[2020-09-18 17:13] LABS: TRICYCLIC ANTIDEPRESS URINE NEGATIVE
[2020-09-18 17:25] LABS: ALANINE AMINOTRANSFERASE 20 U/L (4-34); ALKALINE PHOSPHATASE 129 U/L (50-136); ANION GAP 15 mmol/L (7-16); AST,SGOT 19 U/L (15-37); BILIRUBIN,TOTAL 0.3 mg/dL (0.0-1.0); BLOOD UREA NITROGEN 106 mg/dL (7-17); C-REACTIVE PROTEIN 2.2 mg/dL (0.0-0.9); CALCIUM 8.8 mg/dL (8.4-10.2); CARBON DIOXIDE 18 mmol/L (22-30); CHLORIDE 104 mmol/L (98-107); CREATININE, serum 7.88 (0.52-1.25); POTASSIUM 5.1 mmol/L (3.4-5.0); SODIUM 137 mmol/L (137-145); TOTAL PROTEIN 7.5 gm/dL (6.4-8.2)
[2020-09-18 17:34] LABS: ACETAMINOPHEN < 10 ug/mL (10-30); GLUCOSE 448 mg/dL (74-106); SALICYLATE < 1.0 mg/dL
[2020-09-18 17:36] LABS: TROPONIN-I 0.107 ng/mL (0.000-0.035)
[2020-09-18 20:11] VITALS: BP 156/68; PULSE 87; TEMP 97.3
[2020-09-18] MEDS ORDERED: NORCO 325 MG-51 TAB PO (20:51)
[2020-09-18] MEDS ORDERED: RT ADVAIR 228 DISKUS IH (20:56)
[2020-09-18] MEDS ORDERED: DESENEX TOP (20:57)
[2020-09-18] MEDS ORDERED: PREDFORTE5ML OP (21:00)
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
[2020-09-18 23:13] VITALS: BP 150/55; PULSE 94; TEMP 98.3
--- NOTE | 2020-09-19 05:08 | NUR ---
Pt had uneventful night. No complaints of pain. Currently resting in bed. Bed alarm on. Call light within reach.
[2020-09-19 05:30] VITALS: BP 137/37; PULSE 94; TEMP 98.4
--- NOTE | 2020-09-19 07:10 | NUR ---
Report given to DANUTA Warren
[2020-09-19 07:59] VITALS: BP 137/44; PULSE 91; TEMP 98.2
--- NOTE | 2020-09-19 09:13 | NUR ---
PT DROWSY, PT ORIENTEDX4, PT SKIN AROUND EYES EDEMETOUS, PT LLE HAS SCABS FROM KNEE DOWN, PT HAS SCABS ON ALEX HANDS, PRESSURE ULCER ON L INNER GLUTEUS, ULCER ON SACRUM THAT IS HEALING, POPPED HEALING BLISTER ON BOTTOM OF L FOOT. PT REFUSING BREAKFAST, HOLDING LEVEMIR UNTIL PT EATS, NOVOLOG NOT NEEDED BS 122, PT DIALYSIS CATH LC HAS YELLOW, PURULENT DRAINAGE. FISTULA WEAK, NO OTHER NEEDS.
--- NOTE | 2020-09-19 09:42 | NUR ---
CALLED WALESKA OLIVER ABOUT ADMINISTRATION OF LASIX AND LEVEMIR AND POSSIBLE DIALYSIS.
[2020-09-19 12:11] VITALS: BP 130/50; PULSE 85; TEMP 98.6
--- NOTE | 2020-09-19 12:15 | NUR ---
PT TAKEN FOR PROCEDURE VIA BED.
--- NOTE | 2020-09-19 13:15 | NUR ---
PT RETURNED FROM PROCEDURE, TAKEN STRAIGHT TO DIALYSIS
--- NOTE | 2020-09-19 13:26 | NUR ---
Primary nurse was assisted with [id number] patient care by [facility] student Shannon Stephens and [facility] instructor Kathi Ortega RN-.
[2020-09-19 14:14] LABS: BASO % 0.6 % (0.0-2.0); EOS # 0.2 (0.0-0.7); EOS % 4.4 % (0-4.0); GRAN # 2.5 (1.4-6.5); GRAN % 46.9 % (42.2-75.2); HEMATOCRIT 35.1 % (37.0-47.0); HEMOGLOBIN 11.1 g/dl (12.5-16.0); LYMPH # 1.9 (1.2-3.4); LYMPH % 36.3 % (20.0-51.0); MEAN CELL VOLUME 101 fl (80.0-100.0); MEAN CORPUSCULAR HEMOGLOBIN 32 pg (27.0-31.0); MEAN CORPUSCULAR HGB CONC 32 g/dl (33.0-37.0); MONO # 0.6 (0.1-0.6); MONO % 11.4 % (1.7-9.3); PLATELET COUNT 188 K/mm3 (130-400); RED BLOOD COUNT 3.47 M/mm3 (4.10-5.30); REDCELL DISTRIBUTION WIDTH-CV 13.6 % (11.5-14.5)
[2020-09-19 14:25] LABS: ALBUMIN 3.5 gm/dL (3.5-5.0); CALCIUM 8.8 mg/dL (8.4-10.2); CREATININE, serum 7.51 (0.52-1.25); PHOSPHOROUS 6.7 mg/dL (2.5-4.5); POTASSIUM 5.1 mmol/L (3.4-5.0)
[2020-09-19 16:47] VITALS: BP 120/61; PULSE 71; TEMP 98.6
--- NOTE | 2020-09-19 16:50 | NUR ---
liner worker contacted Milady at Dr Leonardo's office and confirmed that Dr Leonardo is patient's primary care physician and last saw patient on 08/25/2020. Worker provided update on current hospitalization. Worker confirmed that patient had refused [facility] on 09/06/2020 upon last admission, per Brea from [facility].
--- NOTE | 2020-09-19 17:29 | NUR ---
Environmental Construction Engineer collaborated with SOFI Woodard who advised she does not feel patient is safe to discharge home. SW attempted to meet with patient, but was unable to as patient was in dialysis with another patient. SW made a report to APS (intake [id number]) and made contact with APS Environmental Construction Engineer, Nena who advised she closed her case with patient last week. Nena states patient refused to see her for their last visit. SW to continue to follow.
--- NOTE | 2020-09-19 17:51 | NUR ---
PT SLEEPING MOST OF DAY, PT ORIENTED X4 WHEN WOKEN TO ANSWER QUESTIONS, PT FALLS ASLEEP EASILY, CENTRAL LINE TO L FEMORAL INTACT, PT HAD DIALYSIS TODAY AND WILL GO TOMORROW. DENIES PAIN/DISCOMFORT AT THIS TIME. NO OTHER NEEDS AT THIS TIME.
--- NOTE | 2020-09-19 19:30 | NUR ---
Pt was sleeping when this nurse went for a bedside handover. According to the day shift nurse, the pt slept all day. No further needs at this time, will keep monitoring her.
[2020-09-19 20:08] VITALS: BP 120/71; PULSE 79; TEMP 97.7
--- NOTE | 2020-09-19 22:47 | NUR ---
Pt assessment completed and charted. Pt is sleepy and drowsy, only asnwers the questions when called. Meds provided as per JAN, tolerated well. Pt is sleeping/settled on her bed, call light is on reach, bed alarm is on. No further needs at this time.
[2020-09-19 23:25] VITALS: BP 128/51; PULSE 83; TEMP 98.2
--- NOTE | 2020-09-20 01:34 | NUR ---
Veda from [facility] is going to transport to and from dialysis for pt, which is paid by [facility], can be also used as an outpatient. Veda can provide transportation for discharge as well. Veda number is [phone].
[2020-09-20 03:41] VITALS: BP 114/58; PULSE 81; TEMP 97.7
--- NOTE | 2020-09-20 05:12 | NUR ---
Pt had an uneventful night, slept through out the night. Morning meds provided as per JAN. No further needs at this time, will keep monitoring her.
[2020-09-20 06:04] LABS: BASO % 0.4 % (0.0-2.0); EOS # 0.3 (0.0-0.7); EOS % 4.8 % (0-4.0); GRAN # 2.6 (1.4-6.5); GRAN % 46.7 % (42.2-75.2); HEMOGLOBIN 11.7 g/dl (12.5-16.0); LYMPH % 35.5 % (20.0-51.0); MEAN CELL VOLUME 100 fl (80.0-100.0); MEAN CORPUSCULAR HEMOGLOBIN 32 pg (27.0-31.0); MEAN CORPUSCULAR HGB CONC 32 g/dl (33.0-37.0); MEAN PLATELET VOLUME 11.9 fl (7.4-10.4); MONO # 0.7 (0.1-0.6); MONO % 12.1 % (1.7-9.3); PLATELET COUNT 182 K/mm3 (130-400); RED BLOOD COUNT 3.67 M/mm3 (4.10-5.30); REDCELL DISTRIBUTION WIDTH-CV 13.4 % (11.5-14.5)
[2020-09-20 06:06] LABS: HEMATOCRIT 36.7 % (37.0-47.0)
[2020-09-20 06:15] LABS: ALBUMIN 3.8 gm/dL (3.5-5.0); CREATININE, serum 6.62 (0.52-1.25); PHOSPHOROUS 5.7 mg/dL (2.5-4.5); POTASSIUM 4.7 mmol/L (3.4-5.0)
--- NOTE | 2020-09-20 07:00 | NUR ---
Report received from shannan hernandez, pt currently at dialysis during bedside report.
--- NOTE | 2020-09-20 11:00 | NUR ---
Pt back from dialysis at this time. Laying in bed, no complaints at this time.
[2020-09-20 11:29] VITALS: BP 122/41; PULSE 82; TEMP 98.2
[2020-09-20 16:00] VITALS: BP 134/41; PULSE 83
--- NOTE | 2020-09-20 18:12 | NUR ---
Pt assessment completed and charted. Medications administered per jan. Pt A&O, laying in bed all day, sleeping most of day, mostly cooperative w/ cares. Pt on room air, breathing is even and unlabored. HRRR, LS difficult to assess d/t body habitus. BS active X4. Pt has Lt femoral central line, triple, all ports flush, blood return noted to blue and brown ports. Blue port used for medications. Pt has RFA fistula, and Rt arm restriction, non-working LFA fistula. LIJ dialysis cath in place, covered w/ tegaderm, some drainage noted, redness. Rt BKA. Pt has multiple scabs to LLE and BUE. Lt lateral heel pressure ulcer. Ulcer to gluteal fold, stage 1. Pt on sliding scale, administered per jan. No further needs expressed at this time.
[2020-09-20 20:00] VITALS: BP 143/65; PULSE 81; TEMP 97.9
--- NOTE | 2020-09-20 20:00 | NUR ---
Assessment complete. Patient complains of pain 2/10 in RLQ. She has generalized scabbing all over her body; none of which are open. Left leg cellulitis is red with minimal swelling and does not cause the patient pain. Left chest dialysis catheter is reddened, edematous and draining scant amount of perulent fluid. Call light is within reach and needs met. Will continue to monitor.
[2020-09-21] VITALS: BP 143/65; PULSE 84; TEMP 98.9
[2020-09-21 04:00] VITALS: BP 146/65; PULSE 84; TEMP 98.9
[2020-09-21 06:38] LABS: BASO % 0.4 % (0.0-2.0); EOS # 0.3 (0.0-0.7); EOS % 3.8 % (0-4.0); GRAN # 4.3 (1.4-6.5); GRAN % 57.1 % (42.2-75.2); HEMATOCRIT 39.2 % (37.0-47.0); HEMOGLOBIN 12.5 g/dl (12.5-16.0); LYMPH % 26.9 % (20.0-51.0); MEAN CELL VOLUME 99 fl (80.0-100.0); MEAN CORPUSCULAR HEMOGLOBIN 32 pg (27.0-31.0); MEAN CORPUSCULAR HGB CONC 32 g/dl (33.0-37.0); MEAN PLATELET VOLUME 12.2 fl (7.4-10.4); MONO # 0.8 (0.1-0.6); MONO % 11.1 % (1.7-9.3); PLATELET COUNT 156 K/mm3 (130-400); RED BLOOD COUNT 3.96 M/mm3 (4.10-5.30); REDCELL DISTRIBUTION WIDTH-CV 13.2 % (11.5-14.5)
[2020-09-21 06:53] LABS: ALBUMIN 3.9 gm/dL (3.5-5.0); CALCIUM 9.3 mg/dL (8.4-10.2); CREATININE, serum 5.41 (0.52-1.25); PHOSPHOROUS 4.5 mg/dL (2.5-4.5); POTASSIUM 4.1 mmol/L (3.4-5.0)
[2020-09-21 07:50] VITALS: BP 132/53; PULSE 76; TEMP 97.9
--- NOTE | 2020-09-21 10:00 | NUR ---
Assessment ocmpleted, drowsy but easy to arouse, orientedx3, does not appear to be in any acute pain or discomfort/distress, vital signs stable, heart RRR, lungs CTA/ no reps.difficuly, patient has redness/cellultis to left concepcion, left chest HC cath is red and puffy, patient just wants to sleep and is not very interactive, not following commands and unable to perform solid assessment at this time
--- NOTE | 2020-09-21 11:49 | NUR ---
SW met with patient at her bedside to complete intake assessment. PAtient indicated that she currently lives with her daughter Sherin as care support and EMR, however she was not able to provide a phone number Sherin. Patient reports that Sherin assists with ADL's and that she does use a wheelchair that is at home. Patient reports that her PCP is Dr. Kilpatrick, with an appointment coming up November 2020. Patient rpeorts that she gets her medications at [facility] with no concerns. Patient was receiving services from [facility] per previous notes, however when this SW mentioned it, patient denied receiving services. SW at this point discussed HHS with patient and she was [facility] in [facility] and [facility]. Rerrals were faxed to agencies.
[2020-09-21 12:05] VITALS: BP 147/63; PULSE 77; TEMP 98.5
[2020-09-21 16:17] VITALS: BP 153/47; PULSE 69; TEMP 98.1
[2020-09-21 19:38] VITALS: BP 141/56; PULSE 76; TEMP 98.4
--- NOTE | 2020-09-21 20:00 | NUR ---
Report received, assumed care for shift nurse manager. Assessment complete. A&Ox3-very unpleasent and uncooperative this shift. States "what the hell do you want now? Get out." Did allow for this nurse to do an assessment. Denies pain/nausea/shortness of breath. Very tired but easy to arouse. Left chest dialysis cath noted to be slightly red. Multiple scabbed areas on bilat lower ext/hands/arms/thighs. Dressing to left femoral vein site CDI. Plan of care discussed for this shift to include HS meds/calling for needs. Verbalizes understanding. Call light in reach. Will monitor.
--- NOTE | 2020-09-22 00:30 | NUR ---
Resting in bed eyes closed. No s/s of pain/discomfort noted. Call light in reach. Will monitor.
[2020-09-22 00:39] VITALS: BP 155/56; PULSE 77; TEMP 98.3
[2020-09-22 04:06] VITALS: BP 132/50; PULSE 77; TEMP 98.4
--- NOTE | 2020-09-22 05:47 | NUR ---
Slept entire shift only calling once for a diet pepsi. Denied pain/nausea/shortness of breath. VS remained stable. Bedside glucose this AM 218. Denies needs. Call light in reach. Will monitor.
--- NOTE | 2020-09-22 07:18 | NUR ---
BEDSIDE SHIFT REPORT GIVEN. PT RESTING IN BED WITH EYES CLOSED. LAB REPORTS SHE REFUSED LAB DRAW. PT ASKED AGAIN AND STILL REFUSED. EDUCATED ON IMPORTANCE OF VANCO TROUGH. NO COMPLIANCE. WILL CONT TO MONITOR.
[2020-09-22 08:27] VITALS: BP 155/75; PULSE 77; TEMP 98
[2020-09-22 11:40] VITALS: BP 141/42; PULSE 79; TEMP 97.8
--- NOTE | 2020-09-22 14:09 | NUR ---
JOSEPH met with the patient to review d/c plan and to discuss long-term care placement. The patient states she is not going to any facility. She states that she wants to and is going back home with her daughter, Sherin (ph#[phone]). SW addressed how things were going at home before she was re-admitted and how she declined home health. The patient states that things were okay. She states that she does not need a nurse coming in and checking in on her and is refusing home health when she leaves here. She states that her daughter, Erica (ph#[phone]), set up her Medicaid Transportation to dialysis. SW addressed the patient's meth use and where she obtained the meth. The patient reports that SW does not need to know this. JOSEPH contacted and updated Nena, APS worker. Nena states that as long as the patient is non-compliant. There is nothing that they can do for her. JOSEPH attempted to contact the patient's daughter, Sherin. SW left her a voicemail. JOSEPH attempted to contact her other daughter, Erica. The phone number would not ring. JOSEPH to update Dr. Crockett and Collette.
[2020-09-22 15:45] VITALS: BP 134/48; PULSE 74; TEMP 98.5
--- NOTE | 2020-09-22 17:36 | NUR ---
pt refused dinner thus meal time insulin not given.
--- NOTE | 2020-09-22 19:41 | NUR ---
end of shift note: PT AOX4. reported chronic back pain 5/10 but did not want any interventions at this time. excoriated area noted to inner left butt cheek. pt reports it's from picking at skin but educated it appers more of a maceration wound from incontinence. area shallow with pink center and white edges. pt resistant to creams but agreed to allow nawaf cream with brief changes. incontinent x3 this shift. multiple scabs throughout bodsy especially lower extremities. pt with poor hygeine but refused shower/bath despite being asked multiple times this shift. Pt also refused SCD to left leg. refused to get out of bed. pt was asked again this afternoon if she would let labs be drawn but she still refused. Mandie with dr Crockett made aware of lab refusal in AM. pt refused dinner and only drank one diet pepsi this dinner insulin not given. report given to oncoming nurse.
--- NOTE | 2020-09-22 20:00 | NUR ---
Assessment complete. Patient has no complaints of pain. She has been incontinent of urine and is changed; she also requests the bed montero at this time. Dialysis catheter has scant purulent drainage and is reddened around the site. She still has generalized scabbing across her body. Call light in reach.
[2020-09-23 00:04] VITALS: BP 149/51; PULSE 74; TEMP 97.6
[2020-09-23 08:02] VITALS: BP 155/54; PULSE 78; TEMP 98.4
--- NOTE | 2020-09-23 08:03 | NUR ---
Assessment completed, drowsy but easy to arouse, oriented x 3, denies pain at this time, vital signs have been stable and she has been afebrile, left concepcion redness is improving/ large scab noted to dorsal aspect of left foot, left heel is discolored and soft, refuses SCD, fsbs have been up and down, she is scheduled for diaylsis today, just wants to sleep at this time and denies needs
[2020-09-23 09:57] LABS: BASO % 0.3 % (0.0-2.0); EOS # 0.3 (0.0-0.7); EOS % 5.3 % (0-4.0); GRAN # 3.6 (1.4-6.5); GRAN % 57.4 % (42.2-75.2); HEMATOCRIT 37.4 % (37.0-47.0); HEMOGLOBIN 12.1 g/dl (12.5-16.0); LYMPH # 1.8 (1.2-3.4); LYMPH % 28.8 % (20.0-51.0); MEAN CELL VOLUME 99 fl (80.0-100.0); MEAN CORPUSCULAR HEMOGLOBIN 32 pg (27.0-31.0); MEAN CORPUSCULAR HGB CONC 32 g/dl (33.0-37.0); MEAN PLATELET VOLUME 12.1 fl (7.4-10.4); MONO # 0.5 (0.1-0.6); MONO % 7.2 % (1.7-9.3); PLATELET COUNT 157 K/mm3 (130-400); RED BLOOD COUNT 3.77 M/mm3 (4.10-5.30); REDCELL DISTRIBUTION WIDTH-CV 13.2 % (11.5-14.5)
[2020-09-23 10:09] LABS: ALBUMIN 3.8 gm/dL (3.5-5.0); CALCIUM 8.8 mg/dL (8.4-10.2); CREATININE, serum 7.17 (0.52-1.25); PHOSPHOROUS 6.2 mg/dL (2.5-4.5)
--- NOTE | 2020-09-23 13:40 | NUR ---
Patient back to room 314 from dialysis. Patient sitting up in bed eating lunch. Patient wanted to get rest after eating lunch. Call light within reach
[2020-09-23 17:28] VITALS: BP 141/45; PULSE 77; TEMP 98.6
--- NOTE | 2020-09-23 17:46 | NUR ---
Patient has been resting in bed since getting back from dialysis. A&Ox3. Patient states that she is tired and wants to rest. Denies pain and discomfort. No further needs expressed from the patient. Call light within reach
--- NOTE | 2020-09-23 19:32 | NUR ---
Pt was sleeping when this nurse went for a bedside handover, will keep monitoring the pt.
[2020-09-23 19:59] VITALS: BP 152/42; PULSE 79; TEMP 97.5
--- NOTE | 2020-09-23 22:00 | NUR ---
Pt assessment completed and charted. Pt is sleeping most of the time since this nurse started the shift. Meds provided as per JAN, tolerated well. Pt is settled on her bed, call light is on reach. No further needs at this time.
[2020-09-24] VITALS: BP 114/50; PULSE 74; TEMP 98.9
[2020-09-24 04:49] VITALS: BP 133/52; PULSE 75; TEMP 97.9
--- NOTE | 2020-09-24 06:00 | NUR ---
Pt had an unevevntful night, slept most of the night. Meds provided as per JAN. No further needs at this time.
[2020-09-24 08:55] VITALS: BP 132/44; PULSE 77; TEMP 98.5
[2020-09-24 12:21] VITALS: BP 136/47; PULSE 78; TEMP 98.4
--- NOTE | 2020-09-24 12:55 | NUR ---
Dr. Crockett approached JOSEPH about sending referrals to [facility] and [facility] for the patient. JOSEPH contacted and faxed a referral to [facility] and [facility]. Mckenna, at [facility], reports that they actually did receive a referral on the patient on Tuesday and declined the patient on Tuesday. Sascha at [facility], reports that he did not receive a referral on the patient and he will review the referral now. SW awaiting [facility]'s screen.
[2020-09-24] MEDS ORDERED: *Vancomycin Dosing P IV (13:30)
--- NOTE | 2020-09-24 14:07 | NUR ---
Sascha, at [facility], reports that they are declining the patient. JOSEPH met with the patient to update and review discharge plan. The patient would like to return home with her daughter, Sherin. JOSEPH discussed home health services again and their benefits. The patient refused, stating that she does not want home health and does not want to give it a try. JOSEPH then assisted the patient with contacting her daughter, Sherin, on her phone. Sherin was on speaker phone. Sherin is aware of discharge today. The patient's phone then . JOSEPH provided her with a phone stenciler. JOSEPH contacted Sherin back and reviewed discharge plan. Sherin is agreeable with the patient returning back home with her and states that she can turkey picker the patient in and hour. JOSEPH notified the medical staff. The patient is to discharge back home with her daughter today, 09/24. JOSEPH attempted to contact and update APS worker, Nena. SW left her a voicemail. No additional needs at this time.
--- NOTE | 2020-09-24 17:19 | NUR ---
patient alert and oriented. denies any pain. urine incontinent. patient have fistula on right forearm, dialysis catheter on left IJ. right lower extremity amputation. diminished lung sound in all field, s1 s2 heart sound. present pulse in all extremity. left lower extremity appear red. generalized edema. Patient was discharge home with daughter this afternoon. Deisi the pharmacist mentioned she spoke with Dr Moore and Mandie and she was informed to destroy the [place] found on patient during admission. RN discuss with patient there is an order to destroy Cor[place]le. patient was provided with discharge information. CINDI Lockwood confirmed Dialysis Catheter is to be left in place for further dialysis.
== END 2020-09-24 16:00 | disposition home health service (06) | DRG 314 ==
LOC: COL.ER 15:51 → MEDICAL 17:42
PROVIDERS: Emergency Medicine; Nurse Practitioner; ADMIT Internal Medicine Nephrology
PROC: 02PA33Z Removal of Infusion Device from Heart, Percutaneous Approach (ICD-10-PCS; principal; 2020-09-18)
PROC: 02H633Z Insertion of Infusion Device into Right Atrium, Percutaneous Approach (ICD-10-PCS; 2020-09-18)
DX: T82.7XXA Infection and inflammatory reaction due to other cardiac and vascular devices, implants and grafts, initial encounter (principal); N18.6 End stage renal disease; N39.0 Urinary tract infection, site not specified; I13.2 Hypertensive heart and chronic kidney disease with heart failure and with stage 5 chronic kidney disease, or end stage renal disease; I50.20 Unspecified systolic (congestive) heart failure; Y83.8 Other surgical procedures as the cause of abnormal reaction of the patient, or of later complication, without mention of misadventure at the time of the procedure; E11.22 Type 2 diabetes mellitus with diabetic chronic kidney disease; D63.1 Anemia in chronic kidney disease; J44.9 Chronic obstructive pulmonary disease, unspecified; F32.9 Major depressive disorder, single episode, unspecified; F17.210 Nicotine dependence, cigarettes, uncomplicated; Z56.0 Unemployment, unspecified; B96.20 Unspecified Escherichia coli [E. coli] as the cause of diseases classified elsewhere; E03.9 Hypothyroidism, unspecified; Z86.73 Personal history of transient ischemic attack (TIA), and cerebral infarction without residual deficits; H40.9 Unspecified glaucoma; E66.9 Obesity, unspecified; Z99.2 Dependence on renal dialysis; Z91.15 Patient's noncompliance with renal dialysis; Z89.422 Acquired absence of other left toe(s); Z90.710 Acquired absence of both cervix and uterus; Z89.511 Acquired absence of right leg below knee
CPT/HCPCS: J0696; J1644; J1815; J2997; J3370; J7030; J7050

== ENCOUNTER 2020-11-11 07:00 | Inpatient (IN) | payer MEDICAID ==
[~2020-11-11] VITALS: Wt 138.9 kg
[~2020-11-11 07:00] MED LIST changes: +*Vancomycin Dosing P IV; +DESENEX TOP; +PREDFORTE5ML OP
[2020-11-11 20:29] VITALS: BP 158/76; PULSE 77; TEMP 98.8
[2020-11-11 23:52] VITALS: BP 154/55; PULSE 77; TEMP 97.4
[2020-11-12 04:46] VITALS: BP 152/61; PULSE 79; TEMP 97.6
[2020-11-12 10:15] VITALS: BP 175/77; PULSE 68; TEMP 98.1
--- NOTE | 2020-11-12 10:18 | NUR ---
PT SLEEPING IN BED AT BEDSIDE SHIFT REPORT. PT REPORTS BEING WET AND WAS CHANGED AFTER REPORT.
[2020-11-12 10:30] VITALS: BP 175/77; PULSE 96; TEMP 98.1
[2020-11-12 14:24] LABS: BASO % 0.4 % (0.0-2.0); EOS # 0.2 (0.0-0.7); EOS % 3.3 % (0-4.0); GRAN # 4.4 (1.4-6.5); GRAN % 62.4 % (42.2-75.2); LYMPH # 1.8 (1.2-3.4); LYMPH % 25.1 % (20.0-51.0); MEAN CELL VOLUME 94 fl (80.0-100.0); MEAN CORPUSCULAR HEMOGLOBIN 30 pg (27.0-31.0); MEAN CORPUSCULAR HGB CONC 32 g/dl (33.0-37.0); MEAN PLATELET VOLUME 11.3 fl (7.4-10.4); MONO # 0.6 (0.1-0.6); MONO % 8.2 % (1.7-9.3); PLATELET COUNT 209 K/mm3 (130-400); RED BLOOD COUNT 3.29 M/mm3 (4.10-5.30); REDCELL DISTRIBUTION WIDTH-CV 13.2 % (11.5-14.5)
--- NOTE | 2020-11-12 14:51 | NUR ---
THIS NURSE PLACED PT ON POST OP VITAL CHECKS, AN INITIAL SET WAS DOCUMENTED. THE OTHER POST OP VITALS WERE NOT GOTTEN DUE TO PT DISCONNECTING HERSELF FROM VITALS. PT HAS BEEN STABLE AND IS IN DIALYSIS NOW.
[2020-11-12 15:06] LABS: ALBUMIN 3.2 gm/dL (3.5-5.0); BILIRUBIN,TOTAL 0.3 mg/dL (0.0-1.0); CALCIUM 8.9 mg/dL (8.4-10.2); CREATININE, serum 5.9 (0.52-1.25); POTASSIUM 5.2 mmol/L (3.4-5.0); TOTAL PROTEIN 6.6 gm/dL (6.4-8.2)
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
[2020-11-12 16:55] VITALS: BP 123/50; PULSE 70; TEMP 98.1
--- NOTE | 2020-11-12 17:57 | NUR ---
PT TOLERATED DIALYSIS CATHETER PLACEMENT WELL. DOES C/O SORENESS. RATING HER PAIN A 6/10. NORCO INCREASED FROM 5MG TO 7.5 MG Q4 HOURS. PT INCONTINENT AND TRANFERS TO IND. PT RESTING IN BED AT THIS TIME.
--- NOTE | 2020-11-12 20:00 | NUR ---
Assessment complete. Patient complains of "soreness" in left upper chest, where dialysis catheter was placed today. Catheter is dressed with gauze and tegaderm; gauze is slightly bloody but does not appear to be actively bleeding. No edema is observed. Patient has generalized scabbing on her extremities which she states is "from that stuff I was smoking". Patient is finishing eating dinner. Call light in reach, will continue to monitor.
[2020-11-12 20:04] VITALS: BP 131/53; PULSE 73; TEMP 98.7
[2020-11-12 23:16] VITALS: BP 137/57; PULSE 67; TEMP 98.6
--- NOTE | 2020-11-13 06:16 | NUR ---
Patient has had an uneventful night. Pain in left chest dialysis catheter insertion site has been managed with PO Agra. Patient's daughter called around 00:15 and was updated on her mother's status. Call light in reach and patient currently sleeping.
--- NOTE | 2020-11-13 07:44 | NUR ---
PT IS CURRENTLY SLEEPING IN BED. ASSESSMENT COMPLETED. THERE ARE NO OTHER CONCERNS AT THIS TIME. WILL CONTINUE TO MONITOR PATIENT. CALL LIGHT WITHIN REACH.
[2020-11-13 08:55] VITALS: BP 159/79; PULSE 73; TEMP 98.8
[2020-11-13 09:25] LABS: BASO % 0.3 % (0.0-2.0); EOS # 0.3 (0.0-0.7); EOS % 3.1 % (0-4.0); GRAN # 5.8 (1.4-6.5); GRAN % 64.6 % (42.2-75.2); LYMPH # 2.1 (1.2-3.4); LYMPH % 23.1 % (20.0-51.0); MEAN CELL VOLUME 98 fl (80.0-100.0); MEAN CORPUSCULAR HGB CONC 32 g/dl (33.0-37.0); MEAN PLATELET VOLUME 11.4 fl (7.4-10.4); MONO # 0.7 (0.1-0.6); PLATELET COUNT 183 K/mm3 (130-400); REDCELL DISTRIBUTION WIDTH-CV 13.2 % (11.5-14.5)
[2020-11-13 09:27] LABS: HEMATOCRIT 31.4 % (37.0-47.0); HEMOGLOBIN 9.9 g/dl (12.5-16.0); MEAN CORPUSCULAR HEMOGLOBIN 31 pg (27.0-31.0)
[2020-11-13 09:33] LABS: CALCIUM 8.6 mg/dL (8.4-10.2); CREATININE, serum 4.59 (0.52-1.25); POTASSIUM 5.1 mmol/L (3.4-5.0)
[2020-11-13] MEDS ORDERED: NORCO 325 MG-7.1 TAB PO (10:51)
[2020-11-13 12:27] VITALS: BP 106/48; PULSE 61; TEMP 98.8
== END 2020-11-13 15:40 | disposition home or self-care (01) | DRG 640 ==
LOC: EDSTATUS 07:00 → MEDICAL 07:00 → COL.CAR 07:00 → MEDICAL 20:08
PROVIDERS: ADMIT Internal Medicine Nephrology
PROC: 0JH63XZ Insertion of Tunneled Vascular Access Device into Chest Subcutaneous Tissue and Fascia, Percutaneous Approach (ICD-10-PCS; principal; 2020-11-12)
PROC: 02H633Z Insertion of Infusion Device into Right Atrium, Percutaneous Approach (ICD-10-PCS; 2020-11-12)
PROC: 5A1D70Z Performance of Urinary Filtration, Intermittent, Less than 6 Hours Per Day (ICD-10-PCS; 2020-11-12)
DX: E87.70 Fluid overload, unspecified (principal); N18.6 End stage renal disease; I16.1 Hypertensive emergency; I13.2 Hypertensive heart and chronic kidney disease with heart failure and with stage 5 chronic kidney disease, or end stage renal disease; I50.22 Chronic systolic (congestive) heart failure; Z68.43 Body mass index [BMI] 50.0-59.9, adult; E11.22 Type 2 diabetes mellitus with diabetic chronic kidney disease; E03.9 Hypothyroidism, unspecified; E66.9 Obesity, unspecified; H40.9 Unspecified glaucoma; F32.9 Major depressive disorder, single episode, unspecified; F17.210 Nicotine dependence, cigarettes, uncomplicated; J44.9 Chronic obstructive pulmonary disease, unspecified; Z91.15 Patient's noncompliance with renal dialysis; Z79.4 Long term (current) use of insulin; Z88.2 Allergy status to sulfonamides
CPT/HCPCS: J1644; J1815; J2250; J2704; J2916; J3010; J7030; Q5105

== ENCOUNTER 2020-11-18 04:49 | Emergency (ER) | payer MEDICAID ==
[2005-11-23 01:26] VITALS: BP 133/56
[~2020-11-18] VITALS: Ht 167.6 cm; Wt 136.4 kg
[~2020-11-18 04:49] MED LIST changes: +NORCO 325 MG-7.1 TAB PO
[2020-11-18 04:50] VITALS: TEMP 97.8
[2020-11-18 05:51] LABS: BASO % 0.3 % (0.0-2.0); EOS # 0.1 (0.0-0.7); EOS % 0.8 % (0-4.0); GRAN # 8.4 (1.4-6.5); GRAN % 84.1 % (42.2-75.2); HEMOGLOBIN 10.4 g/dl (12.5-16.0); LYMPH # 0.7 (1.2-3.4); LYMPH % 6.6 % (20.0-51.0); MEAN CELL VOLUME 94 fl (80.0-100.0); MEAN CORPUSCULAR HEMOGLOBIN 31 pg (27.0-31.0); MEAN CORPUSCULAR HGB CONC 33 g/dl (33.0-37.0); MEAN PLATELET VOLUME 11.4 fl (7.4-10.4); MONO # 0.7 (0.1-0.6); MONO % 7.4 % (1.7-9.3); PLATELET COUNT 177 K/mm3 (130-400); RED BLOOD COUNT 3.38 M/mm3 (4.10-5.30); REDCELL DISTRIBUTION WIDTH-CV 13.1 % (11.5-14.5)
[2020-11-18 05:53] LABS: HEMATOCRIT 31.6 % (37.0-47.0)
[2020-11-18 05:58] LABS: ALBUMIN 3.6 gm/dL (3.5-5.0); BILIRUBIN,TOTAL 0.4 mg/dL (0.0-1.0); CALCIUM 8.6 mg/dL (8.4-10.2); CREATININE, serum 5.63 (0.52-1.25); POTASSIUM 5.3 mmol/L (3.4-5.0); TOTAL PROTEIN 7.4 gm/dL (6.4-8.2)
[2020-11-18 06:46] LABS: COLLECTION METHOD CATHETER
[2020-11-18 07:01] LABS: MUCOUS Present /lpf; PH 5 (5-8); SQUAMOUS EPITHELIAL None Seen /hpf; URINE APPEARANCE Turbid; URINE BACTERIA Rare /hpf; URINE BILIRUBIN Negative (NEGATIVE); URINE BLOOD 2+ (NEGATIVE); URINE COLOR Amber; URINE GLUCOSE 3+ (NEGATIVE); URINE KETONE Negative (NEGATIVE); URINE LEUKOCYTE ESTERASE 2+ (NEGATIVE); URINE NITRATE Negative (NEGATIVE); URINE PROTEIN(semi-quant) 3+ (NEGATIVE); URINE RBC 20-50 /hpf; URINE UROBILINOGEN Negative (NEGATIVE)
[2020-11-18 07:07] LABS: TRICYCLIC ANTIDEPRESS URINE NEGATIVE
[2020-11-18 14:57] VITALS: BP 135/74; PULSE 65
--- NOTE | 2020-11-18 15:30 | NUR ---
JOSEPH responded to consult. The patient has been discharged from the ED and needs a ride to dialysis at 1400. JOSEPH met with the patient. JOSEPH and the patient attempted to get in contact with her daughter, Sherin. JOSEPH left a voicemail. The patient states that Sherin normally sleeps until 1500. JOSEPH then contacted Medicaid transportation services and scheduled the patient a ride from the ED to dialysis. JOSEPH updated the patient's RN.
== END 2020-11-18 13:54 ==
LOC: COL.ER 04:49
PROVIDERS: Emergency Medicine
DX: E87.5 Hyperkalemia (principal); E87.1 Hypo-osmolality and hyponatremia; I13.2 Hypertensive heart and chronic kidney disease with heart failure and with stage 5 chronic kidney disease, or end stage renal disease; N18.6 End stage renal disease; E03.9 Hypothyroidism, unspecified; E11.9 Type 2 diabetes mellitus without complications; F32.9 Major depressive disorder, single episode, unspecified; Z99.2 Dependence on renal dialysis; F17.210 Nicotine dependence, cigarettes, uncomplicated; Z86.73 Personal history of transient ischemic attack (TIA), and cerebral infarction without residual deficits; Z88.2 Allergy status to sulfonamides; Z20.828 Contact with and (suspected) exposure to other viral communicable diseases; Z79.4 Long term (current) use of insulin; Z79.890 Hormone replacement therapy
CPT/HCPCS: J1815